=== PATIENT | male | born 1935 | race Caucasian/White ===

== ENCOUNTER 2018-04-16 09:13 | Day surgery (SDC) | payer OTHER, MEDICARE ==
--- NOTE | 2018-04-16 09:21 | RAD REPORT ---
EXAM DESCRIPTION: RAD - Chest Pa And Lat (2 Views) - 04/16/2018 9:06 am CLINICAL HISTORY: preop Chest pain. COMPARISON: Chest Single View dated 11/25/2016; Chest Single View dated 11/24/2016; Chest Single View dated 11/23/2016; Chest Single View dated 11/23/2016 FINDINGS: The lungs are clear. The heart is normal in size. No displaced fractures. IMPRESSION: No acute or concerning finding suspected.
[2018-04-16 09:22] LABS: BUN Blood Urea Nitrogen 17 mg/dL (7-18); Bicarbonate 32 mmol/L (21-32); Glucose Level 95 mg/dL (74-106); Potassium 4.5 mmol/L (3.5-5.1); Sodium Level 137 mmol/L (136-145)
[2018-04-16] MEDS ORDERED: CEFAZOLIN 1GM (PREMIX IV) 0 GM/0 ML BAG ONE (09:39)
[2018-04-16] MEDS ORDERED: NA CHLORIDE 0.9% 1,000 ML ONE (09:39)
[2018-04-16] MEDS: CEFAZOLIN 1GM (PREMIX IV) 1 GM/50 ML BAG ONE ×2 (10:20→11:18)
[2018-04-16] MEDS ORDERED: LIDOCAINE 2% MPF 5 ML VIAL ONE (10:54)
[2018-04-16] MEDS ORDERED: PROPOFOL 200 MG/20 ML VIAL IV ONE (10:54)
[2018-04-16] MEDS: LIDOCAINE 1% W/EPI 1:100,000 MDV 50 ML VIAL ONE ×2 (11:39→12:02)
[2018-04-16] MEDS ORDERED: CODEINE 30MG/APAP 300MG TAB ONE (13:54)
--- NOTE | 2018-04-16 14:00 | EKG ---
Test Date: 2018-04-16 Test Time: 08:54:30 Commodities Trader: ADELIA MEASUREMENT RESULTS: Intervals: Rate: 63 IL: 138 QRSD: 88 QT: 398 QTc: 407 Waves: P: 45 IL: 138 QRS: 63 T: 57 INTERPRETIVE STATEMENTS: Normal sinus rhythm Normal ECG Compared to ECG 11/23/2016 10:08:18 Sinus tachycardia no longer present Electronically Signed On 04-16-18 13:58:43 CORPORATE EXECUTIVE by Jonah Hawkins
[2018-04-16 14:43] VITALS: BP 128/58; TEMP 98; O2SAT 99
--- NOTE | 2018-04-17 00:46 | OP ---
Date of Procedure: 04/16/2018 Surgeon: Andrez Kramer MD Preoperative Diagnosis: Squamous cell carcinoma of right scalp. Postoperative Diagnosis: Squamous cell carcinoma of right scalp. Procedure: Wide excision of right scalp squamous cell carcinoma, 4 x 2 cm, with layered closure. Estimated Blood Loss: Minimal. Specimen: As above. Findings: Initially, the superior margin was positive; and therefore, re-excision was done and sent to Pathology as permanent section. Anesthesia: MAC. Complications: None. Disposition: The patient tolerated the procedure in stable condition and was taken to Recovery in go od general condition. Procedure In Detail: The patient was brought to the OR and placed in supine position. MAC anesthesi a was begun. The patient was prepped and draped in usual sterile fashion. Lidocaine 1% with epineph rine was infiltrated locally. Then, #15 blade was used to make a 4 x 2-cm incision to excise this re ddish biopsied area. Subcutaneous tissue was divided, and the entire specimen was excised and sent t o Pathology. The margins from the 10 o'clock to the 4 o'clock position were positive. Therefore, re -excision was done with approximately another 0.5 cm, and this was grossly negative tissue. This was labeled appropriately and sent to Pathology as permanent section. Wound was irrigated, and bleeding was controlled with cautery. Flaps were created. Then, 2-0 chromic was used to reapproximate subcu taneous tissue and 3-0 nylon used to reapproximate skin. Sterile dressing was applied. The patient was awakened and taken to Recovery in good general condition. Discharge Note: The patient will go to day surgery and home when stable. Disposition: Home. Condition: Stable. Discharge Instructions: Resume home medications and diet. Activity as tolerated. No heavy lifting. Remove outer dressing in 2 days. Shower. Keep wound clean and dry. Keep Neosporin on the wound d aily. Follow up in my office in 2 weeks. Call for appointment. Tylenol No. 3 one tablet p.o. q.4 h ours p.r.n. pain. /MODL Voice ID: [id number] Report ID: [id number]
== END 2018-04-16 14:52 | disposition home or self-care (01) ==
LOC: OR 09:13
PROVIDERS: ATTEND Surgery
PROC: 0HB0XZZ Excision of Scalp Skin, External Approach (ICD-10-PCS; principal; 2018-04-16 09:15)
DX: C44.42 Squamous cell carcinoma of skin of scalp and neck (principal); E11.9 Type 2 diabetes mellitus without complications; I10 Essential (primary) hypertension
CPT/HCPCS: 11626; 36415; 71046; 80048; 82962; 85025; 88305; 88331; 88332; 93005; J0690; J2704; J7030

== ENCOUNTER 2018-04-18 18:46 | Observation (INO) | payer OTHER, MEDICARE ==
[2018-04-18 19:42] LABS: Absolute Lymphocytes (CBC) 1.1 K/uL (0.7-4.9); Absolute Monocytes 1.3 K/uL (0.1-1.3); Absolute Neutrophil 9.4 K/uL (1.8-8.0); Basophils % 0.4 % (0-1.3); Eosinophils % 0.8 % (0-4.4); Lymphocytes % 8.8 % (15.3-44.8); MPV 8.7 fL (7.6-11.3); Monocytes % 11.1 % (3.3-12.3); RBC Red Blood Cell Count 3.54 M/uL (4.33-5.43)
[2018-04-18 20:00] LABS: ALT/SGPT 43 U/L (12-78); AST/SGOT 58 U/L (15-37); Albumin 3.5 g/dL (3.4-5.0); Alkaline Phosphatase 88 U/L (45-117); BUN Blood Urea Nitrogen 19 mg/dL (7-18); Bicarbonate 27 mmol/L (21-32); Bilirubin Total 0.3 mg/dL (0.2-1.0); Glucose Level 106 mg/dL (74-106); Potassium 4.1 mmol/L (3.5-5.1); Protein, Total 7.2 g/dL (6.4-8.2); Sodium Level 137 mmol/L (136-145)
--- NOTE | 2018-04-18 20:46 | RAD REPORT ---
EXAM DESCRIPTION: CT - Head C Spine Cap W Efe - 04/18/2018 8:26 pm CLINICAL HISTORY: Fall, head, neck, chest and abdomen pain COMPARISON: CT head November 2016, CT chest October 2016 TECHNIQUE: Axial [address] head images were obtained. Axial [address] cervical spine images were obtaine d with sagittal and coronal reconstruction images reviewed. During dynamic enhancement of 100mL non-i onic contrast, axial 5 mm images of the chest, abdomen and pelvis were obtained. All CT scans are performed using dose optimization technique as appropriate and may include automated exposure control or mA/KV adjustment according to patient size. FINDINGS: No intracranial hemorrhage, mass or edema. No midline shift or abnormal fluid collection. Mild to moderate atrophy and chronic ischemic changes are present similar to comparison. Ventricles a re normal for the amount of volume loss. Mastoid air cells are clear. Left maxillary sinus chronic di sease present. No skull fracture. CT cervical spine imaging shows normal height. Normal alignment of the vertebrae. C4-5 disc space theodora rowing. No paraspinal mass or hematoma seen. Central canal detail is inherently limited. Concerns for traumatic disc herniation or traumatic cord injury can be further addressed with MR imaging. CT chest shows no pneumothorax, pulmonary contusion or pleural fluid collection. No mediastinal hemat elmira and the aorta and pulmonary arteries are unremarkable. No chest will mass or abnormal axillary fi nding. No displaced rib fracture or other significant bony finding. No acute injury to the solid abdominal viscera. Gallbladder is well filled but not dilated. Olivera sheela ear slightly thickened and edematous. There is some mild congestion or edema in the pericholecystic f atty tissues extending towards the duodenum. Biliary tree is upper normal to minimally enlarged. Gall stones can be occult. No bowel injury or significant finding. No free air, free fluid or pneumatosis. No urinary bladder a bnormality. Disc and bony degenerative changes are present. No acute or destructive bone process seen. IMPRESSION: CT head shows atrophy and chronic ischemic change with no hemorrhage or acute intracrani al finding. Cervical spine degenerative change with no fracture or acute finding. Central canal detail is inheren tly limited. Scattered fibrotic change with no acute CT chest finding. Gallbladder olivera appear thickened and edematous and there is stranding in the adjacent fatty tissue. Bile duct is upper normal to minimally enlarged. This is not a typical trauma finding. Correlation i s needed with any clinical or laboratory findings for biliary obstruction or acute cholecystitis. No traumatic injury seen to the abdomen or pelvis.
[2018-04-18] MEDS ORDERED: ACETAMINOPHEN 500 MG TAB PO PRN (21:24)
[2018-04-18] MEDS ORDERED: HYDROMORPHONE HCL 1 MG/ML INJ IV PRN (21:24)
[2018-04-18] MEDS ORDERED: ONDANSETRON 4 MG/2 ML VIAL IV PRN (21:24)
--- NOTE | 2018-04-18 21:25 | ER ---
Nurse's Notes [facility] Name: Mango Giron Age: 82 yrs Sex: Male : 1935 Arrival Date: 04/18/2018 Time: 18:49 Bed 15 Private MD: Joanne Rush F Diagnosis: fall;cholecystitis Presentation: 04/18 19:05 Presenting complaint: Child states: Fell while getting out of bed hitting right side of head on night stand. Denies LOC. Family reports generalized weakness and general confusion with malaise. Procedure done Thursday to remove skin cancer from right side of head. Care prior to arrival: None. Mechanism of Injury: Fall from standing position. Trauma event details: Injury occurred in the [facility], Injury occurred: at home. Injury occurred: April 17, 2018. 19:05 Acuity: BARRON 3 aj 19:05 Method Of Arrival: Wheelchair 19:10 Transition of care: patient was not received from another setting of care. Onset of cc3 symptoms was April 17, 2018. Risk Assessment: Do you want to hurt yourself or someone else? Patient reports no desire to harm self or others. Initial Sepsis Screen: Does the patient meet any 2 criteria? No. Patient's initial sepsis screen is negative. Does the patient have a suspected source of infection? No. Patient's initial sepsis screen is negative. Trauma Activation: Not Applicable Physician: ED Physician; Name: ; Notified At: ; Arrived At: Physician: General Surgeon; Name: ; Notified At: ; Arrived At: Physician: Radiology; Name: ; Notified At: ; Arrived At: Physician: Respiratory; Name: ; Notified At: ; Arrived At: Physician: Lab; Name: ; Notified At: ; Arrived At: Historical: - Allergies: 19:10 Codeine; aj - Home Meds: 19:15 gabapentin 600 mg oral tab [Active]; Phenytoin Oral [Active]; metformin 1,000 mg Oral cc3 TG24 1 tab 2 times per day [Active]; atorvastatin oral oral [Active]; tamsulosin 0.4 mg oral cp24 1 cap once daily [Active]; aspirin 81 mg Oral chew 1 tab once daily [Active]; multivitamin oral cap [Active]; lisinopril 5 mg Oral tab [Active]; Elizabeth Oral [Active]; fluticasone [Active]; - PMHx: 19:10 Diabetes - NIDDM; enlarged prostate; Hypertension; Polio; Seizures; aj - PSHx: 19:10 Appendectomy; aj - Immunization history: Last tetanus immunization: unknown. - Social history:: Smoking status: Patient/guardian denies using tobacco. - Ebola Screening: : Patient negative for fever greater than or equal to 101.5 degrees Fahrenheit, and additional compatible Ebola Virus Disease symptoms Patient denies exposure to infectious person Patient denies travel to an Ebola-affected area in the 21 days before illness onset No symptoms or risks identified at this time. Screenin:10 Abuse screen: Denies threats or abuse. Denies injuries from another. Nutritional cc3 screening: No deficits noted. Tuberculosis screening: No symptoms or risk factors identified. Fall Risk Ambulatory Aid- None/Bed Rest/Nurse Assist (0 pts). Gait- Normal/Bed Rest/Wheelchair (0 pts) Mental Status- Oriented to own ability (0 pts). Primary Survey: 19:05 NO uncontrolled hemorrhage observed. Breathing/Chest: Respiratory pattern: regular, aj Respiratory effort: spontaneous, unlabored. Circulation: Skin color: pink. Disability Alert. 19:10 Exposure/Environment: There is no evidence of uncontrolled external bleeding. cc3 Reassessment Airway Airway Patent Breathing/Chest Respiratory pattern Regular Respiratory effort Spontaneous Unlabored Breath sounds Clear Chest inspection Symmetrical Circulation Temperature Warm Dry Disability Alert. Secondary Survey: 19:10 HEENT: Face No injury/deformity Eyes: No injury or deformity noted. to bilateral eyes. cc3 Ears: clear bilaterally. Nose: clear to bilateral nares. Throat: No injury or deformity noted. is clear with gag reflex present. Gastrointestinal: Abdomen is soft, flat. : No signs and/or symptoms were reported regarding the genitourinary system. Musculoskeletal: Circulation, motion, and sensation intact. Range of motion: intact in all extremities. Assessment: 19:05 General: Appears in no apparent distress. comfortable, Behavior is calm, cooperative, aj appropriate for age. Pain: Denies pain. Neuro: Level of Consciousness is awake, alert, obeys commands, Oriented to person, place, time, situation, Appropriate for age. Respiratory: Airway is patent Respiratory effort is even, unlabored, Respiratory pattern is regular, symmetrical. Derm: Skin is intact, is healthy with good turgor, Skin is pink, warm \T\ dry. normal, Wound noted right frontal area. 20:30 Reassessment: Patient appears in no apparent distress at this time. Patient and/or cc3 family updated on plan of care and expected duration. Pain level reassessed. Patient is alert, oriented x 3, equal unlabored respirations, skin warm/dry/pink. Patient came back from CT scan department. 21:18 Reassessment: Patient appears in no apparent distress at this time. Patient and/or cc3 family updated on plan of care and expected duration. Pain level reassessed. Patient is alert, oriented x 3, equal unlabored respirations, skin warm/dry/pink. 22:25 Reassessment: Patient appears in no apparent distress at this time. Patient and/or cc3 family updated on plan of care and expected duration. Pain level reassessed. Patient is alert, oriented x 3, equal unlabored respirations, skin warm/dry/pink. 23:00 Reassessment: Patient appears in no apparent distress at this time. Patient and/or cc3 family updated on plan of care and expected duration. Pain level reassessed. Patient is alert, oriented x 3, equal unlabored respirations, skin warm/dry/pink. Patient for admission, room available in , report handed over to FIDEL Phillips for continuity of care. 23:30 Reassessment: Patient appears in no apparent distress at this time. Patient and/or cc3 family updated on plan of care and expected duration. Pain level reassessed. Patient is alert, oriented x 3, equal unlabored respirations, skin warm/dry/pink. Patient left ER for admission vitally stable by stretcher escorted by CLAUDETTE Rodriguez with the family. Vital Signs: 19:05 BP 119 / 74; Pulse 91; Resp 20; Temp 99.9(O); Pulse Ox 97% on R/A; Weight 77.11 kg; aj Height 5 ft. 10 in. (177.80 cm); 20:30 BP 118 / 54; Pulse 81; Resp 18 S; Pulse Ox 98% on R/A; cc3 21:12 BP 112 / 57; Pulse 82; Resp 17 S; Pulse Ox 98% on R/A; cc3 22:34 BP 111 / 55; Pulse 81; Resp 18 S; Pulse Ox 99% on R/A; cc3 23:10 BP 104 / 54; Pulse 77; Resp 18 S; Pulse Ox 98% on R/A; cc3 19:05 Body Mass Index 24.39 (77.11 kg, 177.80 cm) aj Shanks Coma Score: 19:05 Eye Response: spontaneous(4). Verbal Response: oriented(5). Motor Response: obeys aj commands(6). Total: 15. Trauma Score (Adult): 19:05 Eye Response: spontaneous(1); Verbal Response: oriented(1); Motor Response: obeys aj commands(2); Systolic BP: > 89 mm Hg(4); Respiratory Rate: 10 to 29 per min(4); Shanks Score: 15; Trauma Score: 12 ED Course: 18:49 Patient arrived in ED. mr 18:50 Joanne Rush MD is Private Physician. mr 19:07 Triage completed. aj 19:10 Glo Jean is Primary Nurse. cc3 19:10 Arm band placed on right wrist. Patient placed in an exam room. aj 19:10 Patient has correct armband on for positive identification. Bed in low position. Call cc3 light in reach. Side rails up X 1. software validation engineer on. Pulse ox on. NIBP on. 19:10 Patient maintains SpO2 saturation greater than 95% on room air. cc3 19:10 Thermoregulation: warm blanket given to patient. cc3 19:13 Eusebio Rodriguez MD is Attending Physician. ps1 19:25 Inserted saline lock: 20 gauge in right antecubital area, using aseptic technique. cc3 Blood collected. 21:23 Tena Weir MD is Hospitalizing Provider. ps1 23:00 No provider procedures requiring assistance completed. Patient admitted, IV remains in cc3 place. Administered Medications: 22:10 Drug: Zosyn 3.375 grams Route: IVPB; Infused Over: 60 mins; Site: right antecubital; cc3 23:20 Follow up: Response: No adverse reaction; IV Status: Completed infusion; IV Intake: cc3 100ml Intake: 23:15 IV: 100ml; Total: 100ml. cc3 23:20 IV: 100ml; Total: 200ml. cc3 Outcome: 21:24 Decision to Hospitalize by Provider. ps1 23:00 Admitted to Med/surg accompanied by tech, family with patient, via stretcher, room 202, cc3 with chart, Report called to FIDEL Phillips 23:00 Condition: stable 23:00 Instructed on the need for admit, Demonstrated understanding of instructions. 23:00 Patient's length of stay in the Emergency Department was greater than 2 hours. patient cc3 admittedPatient's length of stay extended due to 23:33 Patient left the ED. cc3 Signatures: Geovanna Matthew RN RN aj Rivera, Mary mr Singer, Phillip, MD MD ps1 Cordel, Charlene cc3
--- NOTE | 2018-04-18 21:25 | EDPHYS ---
Physician Documentation [facility] Name: Mango Giron Age: 82 yrs Sex: Male : 1935 Arrival Date: 04/18/2018 Time: 18:49 Bed 15 Private MD: Joanne Rush F ED Physician Eusebio Rodriguez HPI: 04/18 20:11 This 82 yrs old Male presents to ER via Wheelchair with complaints of Fall ps1 Injury, Weakness, Confusion. 20:11 patient had recent surgical procedure for skin cancer on head. He was discharged with ps1 T3 and has had multiple falls since the event. Family states that they witnessed him fall twice and he hit his head in the area of the surgical site and concerned for injury. They state that he has been confused and non-sensical in some of his conversations as well as hypersomnolence. He denies cough or urinary complaints. No active bleeding from injury. Small hematoma with dried blood. . Historical: - Allergies: 19:10 Codeine; aj - Home Meds: 19:15 gabapentin 600 mg oral tab [Active]; Phenytoin Oral [Active]; metformin 1,000 mg Oral cc3 TG24 1 tab 2 times per day [Active]; atorvastatin oral oral [Active]; tamsulosin 0.4 mg oral cp24 1 cap once daily [Active]; aspirin 81 mg Oral chew 1 tab once daily [Active]; multivitamin oral cap [Active]; lisinopril 5 mg Oral tab [Active]; Elizabeth Oral [Active]; fluticasone [Active]; - PMHx: 19:10 Diabetes - NIDDM; enlarged prostate; Hypertension; Polio; Seizures; aj - PSHx: 19:10 Appendectomy; aj - Immunization history: Last tetanus immunization: unknown. - Social history:: Smoking status: Patient/guardian denies using tobacco. - Ebola Screening: : Patient negative for fever greater than or equal to 101.5 degrees Fahrenheit, and additional compatible Ebola Virus Disease symptoms Patient denies exposure to infectious person Patient denies travel to an Ebola-affected area in the 21 days before illness onset No symptoms or risks identified at this time. ROS: 20:11 Eyes: Negative for injury, pain, redness, and discharge, ENT: Negative for injury, ps1 pain, and discharge, Cardiovascular: Negative for chest pain, palpitations, and edema, Respiratory: Negative for shortness of breath, cough, wheezing, and pleuritic chest pain, Abdomen/GI: Negative for abdominal pain, nausea, vomiting, diarrhea, and constipation, Back: Negative for injury and pain, MS/Extremity: Negative for injury and deformity. 20:11 Constitutional: Positive for fatigue, poor PO intake. 20:11 Skin: Positive for hematoma, of the right frontal area. 20:11 Neuro: Positive for altered mental status. Exam: 20:11 Constitutional: This is a well developed, well nourished patient who is awake, alert, ps1 and in no acute distress. Eyes: Pupils equal round and reactive to light, extra-ocular motions intact. Lids and lashes normal. Conjunctiva and sclera are non-icteric and not injected. Chest/axilla: Normal chest wall appearance and motion. Nontender with no deformity. No lesions are appreciated. Cardiovascular: Regular rate and rhythm. No gallops, murmurs, or rubs. Normal PMI, no JVD. No pulse deficits. Respiratory: Lungs have equal breath sounds bilaterally, clear to auscultation and percussion. No rales, rhonchi or wheezes noted. No increased work of breathing, no retractions or nasal flaring. Abdomen/GI: Soft, non-tender, with normal bowel sounds. No distension or tympany. No guarding or rebound. No evidence of tenderness throughout. MS/ Extremity: Pulses equal, no cyanosis. Neurovascular intact. Full, normal range of motion. Neuro: Awake and alert, GCS 15, oriented to person, place, time, and situation. Cranial nerves II-XII grossly intact. Sensory grossly intact. Psych: Awake, alert, with orientation to person, place and time. Behavior, mood, and affect are within normal limits. 20:11 Head/face: Noted is no obvious of injury or deformity except contusion, a laceration(s), that is superficial, swelling, of the right frontal area. Vital Signs: 19:05 BP 119 / 74; Pulse 91; Resp 20; Temp 99.9(O); Pulse Ox 97% on R/A; Weight 77.11 kg; aj Height 5 ft. 10 in. (177.80 cm); 20:30 BP 118 / 54; Pulse 81; Resp 18 S; Pulse Ox 98% on R/A; cc3 21:12 BP 112 / 57; Pulse 82; Resp 17 S; Pulse Ox 98% on R/A; cc3 22:34 BP 111 / 55; Pulse 81; Resp 18 S; Pulse Ox 99% on R/A; cc3 23:10 BP 104 / 54; Pulse 77; Resp 18 S; Pulse Ox 98% on R/A; cc3 19:05 Body Mass Index 24.39 (77.11 kg, 177.80 cm) aj [place] Coma Score: 19:05 Eye Response: spontaneous(4). Verbal Response: oriented(5). Motor Response: obeys aj commands(6). Total: 15. Trauma Score (Adult): 19:05 Eye Response: spontaneous(1); Verbal Response: oriented(1); Motor Response: obeys aj commands(2); Systolic BP: > 89 mm Hg(4); Respiratory Rate: 10 to 29 per min(4); Albin Score: 15; Trauma Score: 12 MDM: 19:45 Patient medically screened. ps1 20:11 Data reviewed: vital signs, nurses notes. ps1 04/18 19:15 Order name: CBC with Diff ps1 04/18 19:15 Order name: Type And Screen ps1 04/18 19:15 Order name: CMP ps1 04/18 19:51 Order name: CBC with Automated Diff; Complete Time: 19:55 EDMS 04/18 20:00 Order name: Comprehensive Metabolic Panel; Complete Time: 20:26 EDMS 04/18 20:30 Order name: Type and Screen; Complete Time: 22:44 EDMS 04/18 19:15 Order name: CT Traumagram (Head C Spine CAP W Con) ps1 04/18 19:15 Order name: Labs collected and sent; Complete Time: 19:36 ps1 04/18 20:46 Order name: ABO/RH no charge; Complete Time: 20:53 EDMS 04/18 20:47 Order name: CT; Complete Time: 20:53 EDMS 04/18 21:24 Order name: Urine Dipstick-Ancillary (obtain specimen); Complete Time: 23:33 ps1 Administered Medications: 22:10 Drug: Zosyn 3.375 grams Route: IVPB; Infused Over: 60 mins; Site: right antecubital; cc3 23:20 Follow up: Response: No adverse reaction; IV Status: Completed infusion; IV Intake: cc3 100ml Disposition: 04/18/18 21:24 Hospitalization ordered by Tena Weir for Inpatient Admission. Preliminary diagnosis are cholecystitis, fall. - Bed requested for Telemetry/MedSurg (Inpatient). - Status is Inpatient Admission. cc3 - Condition is Stable. - Problem is new. - Symptoms have improved. UTI on Admission? No Signatures: Dispatcher [employer] EDMS Siria Tolbert RN RN mw Myers, Amanda, RN RN aj Singer, Phillip, MD MD ps1 Simonjinny Glo cc3 Christopher Mara Corrections: (The following items were deleted from the chart) 22:03 21:24 Hospitalization Ordered by Tena Weir MD for Inpatient Admission. Preliminary diagnosis is cholecystitisfall. Bed requested for Telemetry/MedSurg (Inpatient). Status is Inpatient Admission. Condition is Stable. Problem is new. Symptoms have improved. UTI on Admission? No. ps1 22:10 22:03 04/18/2018 21:24 Hospitalization Ordered by Tena Weir MD for Inpatient Admission. Preliminary diagnosis is cholecystitisfall. Bed requested for Telemetry/MedSurg (Inpatient). Status is Inpatient Admission. Condition is Stable. Problem is new. Symptoms have improved. UTI on Admission? No. mw 23:33 22:10 04/18/2018 21:24 Hospitalization Ordered by Tena Weir MD for Inpatient cc3 Admission. Preliminary diagnosis is cholecystitisfall. Bed requested for Telemetry/MedSurg (Inpatient). Status is Inpatient Admission. Condition is Stable. Problem is new. Symptoms have improved. UTI on Admission? No. gm
[2018-04-18] MEDS ORDERED: PIPER/TAZO/NS 3.375gm 3.375 GM/100 ML BAG ONE (22:15)
[2018-04-18] MEDS: NA CHLORIDE 0.9% 1,000 ML IV SCH (23:54)
[2018-04-19 00:45] VITALS: BMI 24.7
[2018-04-19 01:10] VITALS: O2SAT 97
[2018-04-19 02:34] LABS: Urine Appearance CLEAR; Urine Bilirubin NEGATIVE (NEG); Urine Blood NEGATIVE (NEG); Urine Color YELLOW; Urine Glucose NEGATIVE (NEG); Urine Protein TRACE (NEG); Urine Specific Gravity >=1.030 (1.005-1.030); Urine Urobilinogen 0.2 mg/dL (0.2-1.0)
[2018-04-19 03:43] LABS: Urine Microscopic Reflex ORDER UMIC
[2018-04-19 03:57] LABS: Urine Bacteria <20 /HPF (NONE SEEN); Urine Culture Reflex Order NOT NEEDED; Urine RBC NONE SEEN /HPF (NONE SEEN)
[2018-04-19 06:33] LABS: Absolute Lymphocytes (CBC) 1.1 K/uL (0.7-4.9); Absolute Neutrophil 7.1 K/uL (1.8-8.0); Basophils % 0.5 % (0-1.3); Eosinophils % 1.9 % (0-4.4); Hematocrit 31.5 % (39.6-49.0); Lymphocytes % 11.3 % (15.3-44.8); Monocytes % 10.6 % (3.3-12.3); RBC Red Blood Cell Count 3.28 M/uL (4.33-5.43)
[2018-04-19 06:37] LABS: ALT/SGPT 37 U/L (12-78); AST/SGOT 45 U/L (15-37); Albumin 2.9 g/dL (3.4-5.0); Alkaline Phosphatase 73 U/L (45-117); BUN Blood Urea Nitrogen 14 mg/dL (7-18); Bicarbonate 27 mmol/L (21-32); Bilirubin Total 0.4 mg/dL (0.2-1.0); Glucose Level 108 mg/dL (74-106); Magnesium 2.2 mg/dL (1.8-2.4); Phosphorus 2.1 mg/dL (2.5-4.9); Potassium 3.7 mmol/L (3.5-5.1); Protein, Total 6.3 g/dL (6.4-8.2); Sodium Level 137 mmol/L (136-145)
--- NOTE | 2018-04-19 06:48 | P.HP ---
Certification for Inpatient Patient admitted to: Inpatient With expected LOS: >2 Midnights Patient will require the following post-hospital care: None Practitioner: I am a practitioner with admitting privileges, knowledge of patient current condition, hospital course, and medical plan of care. Services: Services provided to patient in accordance with Admission requirements found in Title 42 Section 412.3 of the Code of Federal Regulations Patient History Date of Service: 04/18/18 Reason for admission: Status post fall; possible cholecystitis History of Present Illness: Patient is an 82-year-old gentleman who fell at home. He apparently hit his head after falling and he suffered a head laceration. He came into the emergency room for further evaluation. He had a CT traumagram performed which revealed possible acute cholecystitis. Patient was admitted to the hospital for further observation. Patient also has history of diabetes and seizure disorder. These a been fairly well controlled. He will be admitted and will monitor him closely. Will keep him NPO and await for general surgery evaluation. Patient does not have any significant cardiac issues. Will monitor him on telemetry. Allergies codeine Adverse Reaction (Verified 04/19/18 00:04) Nausea/Vomiting - Past Medical/Surgical History Has patient received pneumonia vaccine in the past: Yes Diabetic: Yes -: Diabetes mellitus type 2 -: BPH -: Cataracts/glaucoma -: History of polio -: Seizure disorder -: Cataracts/glaucoma -: Appendectomy -: Right foot surgery -: Sinus surgery Psychosocial/ Personal History: The patient is of 55 years. He has 3 children. - Family History Mother Medical History: Cancer - Social History Smoking Status: Never smoker Alcohol use: No CD- Drugs: No Caffeine use: Yes Place of Residence: Home Review of Systems 10-point ROS is otherwise unremarkable Physical Examination - Vital Signs Temperature: 98.4 F Blood Pressure: 114/58 Pulse: 89 Respirations: 20 Pulse Ox (%): 95 - Physical Exam General: Alert, In no apparent distress, Oriented x3 HEENT: PERRLA, Mucous membr. moist/pink, Other (Patient with head laceration with dried blood at the scalp), EOMI, Sclerae nonicteric Neck: Supple, 2+ carotid pulse no bruit, No LAD, Without JVD or thyroid abnormality Respiratory: Clear to auscultation bilaterally, Normal air movement Cardiovascular: Regular rate/rhythm, Normal S1 S2, No murmurs Gastrointestinal: Normal bowel sounds, Soft and benign, Non-distended, Tenderness (Minimal right upper quadrant) Musculoskeletal: No clubbing, No swelling, No tenderness Integumentary: No rashes Neurological: Normal gait, Normal speech, Normal strength at 5/5 x4 extr, Normal tone, Normal affect Lymphatics: No axilla or inguinal lymphadenopathy - Studies Laboratory Data (last 24 hrs) 04/18/18 19:25: Sodium 137, Potassium 4.1, BUN 19 H, Creatinine 0.70, Glucose 106, Total Bilirubin 0.3, AST 58 H, ALT 43, Alkaline Phosphatase 88 04/18/18 19:25: WBC 11.9 H D, Hgb 11.2 L, Hct 34.0 L, Plt Count 166 Assessment & Plan - Problems (Diagnosis) (1) Syncope and collapse Onset Date: 06/18/15 Current Visit: No Status: Acute (2) Diabetes mellitus Onset Date: 11/24/16 Current Visit: No Status: Chronic Qualifiers: (3) Hypertension Onset Date: 11/24/16 Current Visit: No Status: Chronic Qualifiers: (4) Seizure disorder Onset Date: 11/24/16 Current Visit: No Status: Chronic - Plan 1. Continue with IV hydration 2. Continue with IV antibiotics 3. Continue with pain control 4. NPO 5. General surgery consultation; 6. We will monitor CBC, BMP, LFTs and lipase along with electrolytes. 7. Continue anti epileptics 8. GI and DVT prophylaxis Discharge Plan: Home Plan to discharge in: Greater than 2 days - Advance Directives Does patient have a Living Will: Yes Does patient have a Durable POA for Healthcare: Yes - Code Status/Comfort Care Code Status Assessed: Yes Code Status: Full Code Critical Care: No Time Spent Managing PTS Care (In Minutes): 50
[2018-04-19] MEDS ORDERED: Levofloxacin500mg IV 500 MG/100 ML BAG IV SCH (07:00)
[2018-04-19] MEDS ORDERED: POTASSIUM PHOS IN 0.9 % NACL 15 MMOL/250 ML BAG IV ONE (09:00)
[2018-04-19] MEDS: METRONIDAZOLE 500mg IVPB 500 MG/100 ML BAG IV SCH ×2 (09:26→16:21)
--- NOTE | 2018-04-19 09:29 | RAD REPORT ---
EXAM DESCRIPTION: US - Abdomen Exam Complete - 04/19/2018 8:15 am CLINICAL HISTORY: Abdominal pain COMPARISON: April 18, 2018 cat scan FINDINGS: The liver has a normal echotexture. The gallbladder wall is thickened measuring 8 millimeters. A small to moderate amount of sludge is pr esent. A gallstone is not clearly seen. The common bile duct is borderline dilated. The pancreas is normal in size and echotexture The right kidney measures 11 centimeters with a normal echotexture. The left kidney measures 11 centimeters with a normal echotexture. The spleen measures 8 centimeters. The abdominal aorta and inferior vena cava appear unremarkable IMPRESSION: Thickened gallbladder wall with a small to moderate amount of sludge. This may indicate cholecystitis
[2018-04-19] MEDS: NA CHLORIDE 0.9% 1,000 ML IV SCH (12:03)
--- NOTE | 2018-04-19 13:27 | P.DS ---
Admission Date: 04/18/18 Discharge Date: 04/19/18 Primary Care Provider: Dr. Ziegler(I am covering for him) Disposition: DC HOME/HOME HEALTH CARE Discharge Condition: GOOD Reason for Admission: Status post fall; possible cholecystitis Consultations: Surgery-Dr. Hanks Procedures: CT Scan: COMPARISON: CT head November 2016, CT chest October 2016 TECHNIQUE: Axial [address] head images were obtained. Axial [address] cervical spine images were obtained with sagittal and coronal reconstruction images reviewed. During dynamic enhancement of 100mL non-ionic contrast, axial 5 mm images of the chest, abdomen and pelvis were obtained. All CT scans are performed using dose optimization technique as appropriate and may include automated exposure control or mA/KV adjustment according to patient size. FINDINGS: No intracranial hemorrhage, mass or edema. No midline shift or abnormal fluid collection. Mild to moderate atrophy and chronic ischemic changes are present similar to comparison. Ventricles are normal for the amount of volume loss. Mastoid air cells are clear. Left maxillary sinus chronic disease present. No skull fracture. CT cervical spine imaging shows normal height. Normal alignment of the vertebrae. C4-5 disc space narrowing. No paraspinal mass or hematoma seen. Central canal detail is inherently limited. Concerns for traumatic disc herniation or traumatic cord injury can be further addressed with MR imaging. CT chest shows no pneumothorax, pulmonary contusion or pleural fluid collection. No mediastinal hematoma and the aorta and pulmonary arteries are unremarkable. No chest will mass or abnormal axillary finding. No displaced rib fracture or other significant bony finding. No acute injury to the solid abdominal viscera. Gallbladder is well filled but not dilated. Olivera appear slightly thickened and edematous. There is some mild congestion or edema in the pericholecystic fatty tissues extending towards the duodenum. Biliary tree is upper normal to minimally enlarged. Gallstones can be occult. No bowel injury or significant finding. No free air, free fluid or pneumatosis. No urinary bladder abnormality. Disc and bony degenerative changes are present. No acute or destructive bone process seen. IMPRESSION: CT head shows atrophy and chronic ischemic change with no hemorrhage or acute intracranial finding. Cervical spine degenerative change with no fracture or acute finding. Central canal detail is inherently limited. Scattered fibrotic change with no acute CT chest finding. Gallbladder olivera appear thickened and edematous and there is stranding in the adjacent fatty tissue. Bile duct is upper normal to minimally enlarged. This is not a typical trauma finding. Correlation is needed with any clinical or laboratory findings for biliary obstruction or acute cholecystitis. No traumatic injury seen to the abdomen or pelvis. ABUS: COMPARISON: April 18, 2018 cat scan FINDINGS: The liver has a normal echotexture. The gallbladder wall is thickened measuring 8 millimeters. A small to moderate amount of sludge is present. A gallstone is not clearly seen. The common bile duct is borderline dilated. The pancreas is normal in size and echotexture The right kidney measures 11 centimeters with a normal echotexture. The left kidney measures 11 centimeters with a normal echotexture. The spleen measures 8 centimeters. The abdominal aorta and inferior vena cava appear unremarkable IMPRESSION: Thickened gallbladder wall with a small to moderate amount of sludge. This may indicate cholecystitis Medical Problem List: Accidental fall leading to laceration to right forehead region Asymptomatic cholecystitis Diabetes mellitus type 2 Seizure disorder Hypertension Hyperlipidemia BPH Chronic sinusitis Brief History of Present Illness: 82-year-old male presented to the emergency room after a fall. Patient denied any syncope, chest pain or shortness of breath. Patient accidentally fell. He suffered a laceration which was repaired in the emergency room. Patient was admitted for observation. CT scan revealed possible cholecystitis. Patient without nausea, vomiting or abdominal pain. Hospital Course: Patient presented with a fall. This was all accidental as he was trying to get out of the bathroom. He denied any syncope, chest pain or shortness of breath. Patient suffered a laceration to his forehead. This was repaired in the ER. Patient was observed. CT scan revealed possible cholecystitis. Patient denied any nausea, vomiting or abdominal pain. Abdominal ultrasound showed possible mild cholecystitis with sludge noted. Case discussed with his surgeon-Dr. Kramer. No need for surgical intervention at this time. At discharge he will continue with Cipro 500 mg 1 pill twice daily and Flagyl 500 mg 3 times a day for 7 days. Patient will need a follow up with surgery within 1 week to follow up this hospitalization and consider outpatient surgery. For his fall physical therapy ambulated patient. Patient normally uses walker. Patient also has home health and caregiver. Coverage fall precautions addressed in detail. Home health and physical therapy will be arranged. Family plans to have the caregiver available. Recommend to follow up with his PCP-Dr. Ziegler within 1 week to follow up this hospitalization. Patient has diabetes mellitus type 2. This remained stable. Patient will continue with metformin a 1000 mg 1 pill twice daily. Recommend to maintain blood sugars less than 140 fasting and less than 200 after meals. Further adjustment can be done by his PCP. Patient has hypertension. This remained stable. Patient will continue with lisinopril 5 mg 1 pill once daily. Recommend to maintain blood pressures less 150/80. Further adjustment can be done by his PCP. Patient has hyperlipidemia. Patient will continue with pravastatin 40 mg daily. Patient has seizure disorder. No seizures noted. At discharge he will continue with Phenytoin 100 mg 3 times a day and gabapentin sitter mg 3 times a day. Patient will follow up with neurology as directed. Patient has BPH. Patient will continue with Flomax 0.4 mg daily. Vital Signs/Physical Exam: Temp Pulse Resp BP Pulse Ox 98.1 F 77 18 114/56 L 97 04/19/18 08:00 04/19/18 08:00 04/19/18 08:00 04/19/18 08:00 04/19/18 08:00 General: Alert, In no apparent distress, Oriented x3, Cooperative HEENT: Other (Laceration to the right forehead region, status post repair) Neck: Supple Respiratory: Clear to auscultation bilaterally, Normal air movement Cardiovascular: Normal pulses, Regular rate/rhythm Gastrointestinal: Normal bowel sounds, Soft and benign, Non-distended, No tenderness, No masses, No rebound, No guarding Musculoskeletal: No erythema, No tenderness, No warmth Integumentary: No tenderness/swelling, No erythema, No warmth, No cyanosis Neurological: Normal speech, Normal strength at 5/5 x4 extr, Normal tone, Normal affect Laboratory Data at Discharge: WBC 9.4 K/uL (4.3-10.9) D 04/19/18 05:54 Hgb 10.6 g/dL (13.6-17.9) L 04/19/18 05:54 Hct 31.5 % (39.6-49.0) L 04/19/18 05:54 Plt Count 157 K/uL (152-406) 04/19/18 05:54 Sodium 137 mmol/L (136-145) 04/19/18 05:54 Potassium 3.7 mmol/L (3.5-5.1) 04/19/18 05:54 BUN 14 mg/dL (7-18) 04/19/18 05:54 Creatinine 0.55 mg/dL (0.55-1.3) 04/19/18 05:54 Glucose 108 mg/dL (74-106) H 04/19/18 05:54 Phosphorus 2.1 mg/dL (2.5-4.9) L 04/19/18 05:54 Magnesium 2.2 mg/dL (1.8-2.4) 04/19/18 05:54 Total Bilirubin 0.4 mg/dL (0.2-1.0) 04/19/18 05:54 AST 45 U/L (15-37) H 04/19/18 05:54 ALT 37 U/L (12-78) 04/19/18 05:54 Alkaline Phosphatase 73 U/L (45-117) 04/19/18 05:54 Home Medications: Aspirin [Adult Aspirin] 81 mg PO DAILY 04/19/18 Calcium Carbonate [Calcium] 500 mg PO DAILY 04/19/18 Ciprofloxacin HCl [Cipro 500 MG Tablet] 500 mg PO BID #14 tab 04/19/18 Fexofenadine HCl [Elizabeth Allergy] 60 mg PO DAILY 04/19/18 Fluticasone Propionate [Flonase Allergy Relief] 9.9 ml NS TID 04/19/18 Gabapentin 600 mg PO TID 04/19/18 Lisinopril [Prinivil*] 5 mg PO DAILY 04/19/18 Metformin HCl 1,000 mg PO BID 6AM 6PM 04/19/18 Multivitamin [Multivitamins] 1 each PO DAILY 04/19/18 Phenytoin Sodium Extended 100 mg PO TID 04/19/18 Pravastatin Sodium 40 mg PO DAILY 04/19/18 Tamsulosin HCl [Flomax] 0.4 mg PO DAILY 04/19/18 metroNIDAZOLE [Flagyl] 500 mg PO Q8H #21 tablet 04/19/18 New Medications: Ciprofloxacin HCl [Cipro 500 MG Tablet] 500 mg PO BID #14 tab metroNIDAZOLE [Flagyl] 500 mg PO Q8H #21 tablet Patient Discharge Instructions: 1. Patient will need to follow up his PCP in 1 week to follow up this hospitalization. 2. Patient presented with a fall. This was all accidental as he was trying to get out of the bathroom. He denied any syncope, chest pain or shortness of breath. Patient suffered a laceration to his forehead. This was repaired in the ER. Patient was observed. CT scan revealed possible cholecystitis. Patient denied any nausea, vomiting or abdominal pain. Abdominal ultrasound showed possible mild cholecystitis with sludge noted. Case discussed with his surgeon-Dr. Kramer. No need for surgical intervention at this time. At discharge he will continue with Cipro 500 mg 1 pill twice daily and Flagyl 500 mg 3 times a day for 7 days. Patient will need a follow up with surgery within 1 week to follow up this hospitalization and consider outpatient surgery. 3. For his fall, physical therapy ambulated patient. Patient normally uses walker. Patient also has home health and caregiver. Coverage fall precautions addressed in detail. Home health and physical therapy will be arranged. Family plans to have the caregiver available. Recommend to follow up with his PCP-Dr. Ziegler within 1 week to follow up this hospitalization. 4. Patient has diabetes mellitus type 2. This remained stable. Patient will continue with metformin a 1000 mg 1 pill twice daily. Recommend to maintain blood sugars less than 140 fasting and less than 200 after meals. Further adjustment can be done by his PCP. 5. Patient has hypertension. This remained stable. Patient will continue with lisinopril 5 mg 1 pill once daily. Recommend to maintain blood pressures less 150/80. Further adjustment can be done by his PCP. 6. Patient has hyperlipidemia. Patient will continue with pravastatin 40 mg daily. 7. Patient has seizure disorder. No seizures noted. At discharge he will continue with Phenytoin 100 mg 3 times a day and gabapentin sitter mg 3 times a day. Patient will follow up with neurology as directed. 8. Patient has BPH. Patient will continue with Flomax 0.4 mg daily. Diet: ADA Activity: Fall precautions Time spent managing pt's care (in minutes): 55
[2018-04-19] MEDS ORDERED: TRAMADOL HCL 50 MG TAB PO PRN (13:40)
[2018-04-19] MEDS ORDERED: IBUPROFEN 400 MG TAB PO PRN (13:40)
[2018-04-19] MEDS ORDERED: GABAPENTIN 300 MG CAP PO SCH (14:00)
[2018-04-19] MEDS ORDERED: [UNRECOGNIZED DRUG - REMARK] NS SCH (14:00)
[2018-04-19] MEDS ORDERED: PHENYTOIN ER 100 MG CAP PO SCH (14:00)
[2018-04-19] MEDS ORDERED: HOME MED 1 EA UNK (Gabapentin [Gabapentin] 600 MG) PO SCH (14:00)
[2018-04-19] MEDS ORDERED: ENOXAPARIN 30 MG/0.3 ML SQ SCH (17:00)
[2018-04-19] MEDS ORDERED: METFORMIN HCL 500 MG TAB PO SCH (17:00)
[2018-04-19] MEDS ORDERED: HOME MED 1 EA UNK (Metformin Hcl [Metformin Hcl] 1,000 MG) PO SCH (18:00)
[2018-04-19 18:27] VITALS: BP 106/55; TEMP 99.6
[2018-04-19] MEDS ORDERED: ATORVASTATIN 10 MG TAB PO SCH (21:00)
[2018-04-20] MEDS ORDERED: MULTIVITAMIN TAB PO SCH (09:00)
[2018-04-20] MEDS ORDERED: TAMSULOSIN 0.4 MG SR CAP PO SCH (09:00)
[2018-04-20] MEDS ORDERED: LISINOPRIL 5 MG TAB PO SCH (09:00)
[2018-04-20] MEDS ORDERED: ASPIRIN EC 81 MG TAB PO SCH (09:00)
[2018-04-20] MEDS ORDERED: HOME MED 1 EA UNK (Multivitamin [Multivitamins] 1 EACH) PO SCH (09:00)
[2018-04-20] MEDS ORDERED: CALCIUM CARBONATE 500 MG TAB PO SCH (09:00)
[2018-04-20] MEDS ORDERED: [UNRECOGNIZED DRUG - REMARK] PO SCH (09:00)
[2018-04-20] MEDS ORDERED: HOME MED 1 EA UNK (Pravastatin Sodium [Pravastatin Sodium] 40 MG) PO SCH (09:00)
== END 2018-04-19 18:20 | disposition home health service (06) ==
LOC: ER 18:46 → INTOOBSV 21:52 → ERHOLD 21:52 → 2ND 23:06
PROVIDERS: ADMIT Hospitalist; ATTEND Hospitalist
DX: S01.81XA Laceration without foreign body of other part of head, initial encounter (principal); W06.XXXA Fall from bed, initial encounter; Y92.003 Bedroom of unspecified non-institutional (private) residence as the place of occurrence of the external cause; E11.9 Type 2 diabetes mellitus without complications; G40.909 Epilepsy, unspecified, not intractable, without status epilepticus; N40.0 Benign prostatic hyperplasia without lower urinary tract symptoms; Z86.12 Personal history of poliomyelitis; I10 Essential (primary) hypertension; J32.9 Chronic sinusitis, unspecified; Z79.82 Long term (current) use of aspirin; E78.5 Hyperlipidemia, unspecified
CPT/HCPCS: 36415; 70450; 71260; 72125; 74177; 76700; 80053 ×2; 82962 ×2; 83735; 84100; 85025 ×2; 86850; 86900; 86901; 96365; 97163; 99285; G0378 ×2; J1650; J2543; J7030 ×2; Q9967; 81003; 81015; J1170

== ENCOUNTER 2019-05-31 09:20 | Emergency (ER) | payer OTHER, MEDICARE ==
--- NOTE | 2019-05-31 10:46 | RAD REPORT ---
EXAM DESCRIPTION: CT - Head Brain Wo Cont - 05/31/2019 10:33 am CLINICAL HISTORY: Head injury with headache status post fall COMPARISON: 2019 TECHNIQUE: Computed axial tomography of the head was obtained. IV contrast was not requested. All CT scans are performed using dose optimization technique as appropriate and may include automated exposure control or mA/KV adjustment according to patient size. FINDINGS: An intracranial bleed is not seen . The ventricles are normal in caliber. No extra-axial fluid collection is noted. 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 Fluid within the sinuses/ mastoids is not seen. IMPRESSION: No acute intracranial abnormality is seen. If patient's symptoms persist MRI of the bra in would be recommended.
--- NOTE | 2019-05-31 10:53 | RAD REPORT ---
EXAM DESCRIPTION: CTSpine Lumbar Wo Con05/31/2019 10:34 am CLINICAL HISTORY: Back injury with back pain and radiculopathy status post fall COMPARISON: None TECHNIQUE: Computed axial tomography lumbar spine was obtained with coronal and sagittal reconstruct ion. All CT scans are performed using dose optimization technique as appropriate and may include automated exposure control or mA/KV adjustment according to patient size. FINDINGS: Compression fracture involves the superior endplate of the L2 vertebral body estimated to be 25%. No extension into the posterior elements. There is no retropulsion of fracture fragment into the spinal canal. No dislocation Spondylosis involves L3-4 resulting in moderate to marked central spinal stenosis IMPRESSION: Mild to moderate compression fracture L2 vertebral body
--- NOTE | 2019-05-31 11:14 | RAD REPORT ---
EXAM DESCRIPTION: Katrina Single View05/31/2019 10:57 am CLINICAL HISTORY: Chest pain COMPARISON: March 2018 FINDINGS: The lungs appear clear of acute infiltrate. The heart is normal size. Mild elevation left hemidiaphragm
--- NOTE | 2019-05-31 11:23 | RAD REPORT ---
EXAM DESCRIPTION: RAD - Hip Right 2 View - 05/31/2019 10:56 am CLINICAL HISTORY: Right hip pain FINDINGS: No fracture or dislocation is seen. The bones are osteoporotic. Moderate joint space narrowing. If patient continues to have symptoms to suggest an occult fracture MRI would be recommended
[2019-05-31 11:33] LABS: Absolute Lymphocytes (CBC) 0.9 K/uL (0.7-4.9); Hematocrit 35.2 % (39.6-49.0); RBC Red Blood Cell Count 3.69 M/uL (4.33-5.43)
[2019-05-31 11:40] LABS: ALT/SGPT 67 U/L (12-78); AST/SGOT 39 U/L (15-37); Albumin 3.7 g/dL (3.4-5.0); Alkaline Phosphatase 150 U/L (45-117); BUN Blood Urea Nitrogen 11 mg/dL (7-18); Bicarbonate 28 mmol/L (21-32); Bilirubin Total 0.2 mg/dL (0.2-1.0); Glucose Level 80 mg/dL (74-106); Potassium 4.7 mmol/L (3.5-5.1); Protein, Total 7.7 g/dL (6.4-8.2); Sodium Level 132 mmol/L (136-145)
[2019-05-31 11:41] LABS: Troponin I < 0.02 ng/mL (0.0-0.045)
[2019-05-31 11:57] LABS: Urine Blood NEGATIVE (NEG); Urine Glucose NEGATIVE (NEG); Urine Protein NEGATIVE (NEG); Urine Specific Gravity 1.015 (1.005-1.030); Urine pH 6.5 (5.0-7.0)
--- NOTE | 2019-05-31 12:35 | ER ---
Nurse's Notes [facility] Name: Mango Giron Age: 84 yrs Sex: Male : 1935 Arrival Date: 05/31/2019 Time: 09:24 Bed 5 Private MD: Joanne Rush F Diagnosis: Low back pain;Fracture of lumbar vertebra-compression fracture Presentation: 05/30 09:43 Chief complaint: fell last Thursday and again one time this week, now has pain in lower iw back and right hip. 09:43 Acuity: BARRON 4 iw 09:43 Method Of Arrival: Wheelchair iw 10:34 Coronavirus screen: The patient has NOT traveled to [place] in the past 14 days. Proceed iw with normal triage procedures. Ebola Screen: Patient negative for fever greater than or equal to 101.5 degrees Fahrenheit, and additional compatible Ebola Virus Disease symptoms Patient denies exposure to infectious person. Patient denies travel to an Ebola-affected area in the 21 days before illness onset. No symptoms or risks identified at this time. Initial Sepsis Screen: Does the patient meet any 2 criteria? No. Patient's initial sepsis screen is negative. Does the patient have a suspected source of infection? No. Patient's initial sepsis screen is negative. Risk Assessment: Do you want to hurt yourself or someone else? Patient reports no desire to harm self or others. 10:34 Acuity: BARRON 3 iw Triage Assessment: 09:45 General: Appears in no apparent distress. comfortable, Behavior is cooperative, bp appropriate for age, anxious. Pain: Complains of pain in back. EENT: No deficits noted. Neuro: No deficits noted. Cardiovascular: No deficits noted. Rhythm is sinus rhythm. Respiratory: No deficits noted. GI: No signs and/or symptoms were reported involving the gastrointestinal system. : No signs and/or symptoms were reported regarding the genitourinary system. Derm: No deficits noted. Musculoskeletal: No deficits noted. Historical: - Allergies: :45 Codeine; iw - Home Meds: 09:45 Elizabeth Oral [Active]; aspirin 81 mg Oral chew 1 tab once daily [Active]; atorvastatin iw Oral [Active]; fluticasone [Active]; gabapentin 600 mg Oral tab [Active]; lisinopril 5 mg Oral tab [Active]; metformin 1,000 mg Oral TG24 1 tab 2 times per day [Active]; multivitamin Oral cap [Active]; Phenytoin Oral [Active]; tamsulosin 0.4 mg Oral cp24 1 cap once daily [Active]; - PMHx: :45 Diabetes - NIDDM; enlarged prostate; Hypertension; Polio; Seizures; iw - PSHx: :45 Appendectomy; iw - Immunization history:: Adult Immunizations. - Social history:: Smoking status: Patient denies any tobacco usage or history of. - Family history:: not pertinent. Screenin:45 Abuse screen: Denies threats or abuse. Denies injuries from another. Nutritional bp screening: No deficits noted. Tuberculosis screening: No symptoms or risk factors identified. Fall Risk None identified. Assessment: :45 General: SEE TRIAGE NOTE. bp 11:00 Reassessment: PT RETURNED FROM CT. VS STABLE ON MONITOR. bp 12:00 Reassessment: ALL CURRENT ORDERS IN PROCESS, RESULTS PENDING. NO ACUTE S/S AT THIS TIME.bp 12:59 Reassessment: PT D/C HOME VIA W/C WITH FAMILY, DX WITH BACK PAIN. bp Vital Signs: 09:45 BP 120 / 82; Pulse 69; Resp 16; Temp 98.8; Pulse Ox 99% on R/A; Weight 82.1 kg; Height iw 5 ft. 10 in. (177.80 cm); Pain 8/10; 11:00 BP 120 / 65; Pulse 72; Resp 16; Pulse Ox 95% ; bp 09:45 Body Mass Index 25.97 (82.10 kg, 177.80 cm) iw ED Course: 09:24 Patient arrived in ED. ag5 09:24 Joanne Rush MD is Private Physician. ag5 09:44 Triage completed. iw 09:45 Patient has correct armband on for positive identification. Bed in low position. Call bp light in reach. Side rails up X2. 09:46 Arm band placed on. iw 10:07 Tena Arreguin MD is Attending Physician. ma2 10:15 Kelsea Nugent, FIDEL is Primary Nurse. rb1 10:35 CT Head Brain wo Cont In Process Unspecified. EDMS 10:35 CT Lumbar Spine Wo Con In Process Unspecified. EDMS 10:50 Patient moved to radiology via stretcher. mh1 10:53 Chest Single View XRAY In Process Unspecified. EDMS 10:54 Hip Right 2 View XRAY In Process Unspecified. EDMS 11:10 Inserted saline lock: 22 gauge in right antecubital area, using aseptic technique. bp Blood collected. 12:44 Primary Nurse role handed off by Kelsea Nugent, RN bp 12:44 Darrel Urban, RN is Primary Nurse. bp 12:59 No provider procedures requiring assistance completed. IV discontinued, intact, bp bleeding controlled, No redness/swelling at site. Pressure dressing applied. Administered Medications: No medications were administered Outcome: 12:34 Discharge ordered by . tyler 12:59 Discharged to home via wheelchair, with family. bp 12:59 Condition: stable 12:59 Discharge instructions given to patient, Instructed on discharge instructions, follow up and referral plans. medication usage, Demonstrated understanding of instructions, follow-up care, medications, Prescriptions given X 3. 13:00 Patient left the ED. bp Signatures: Dispatcher [employer] EDMS Siria Ocampo 1 Mara Saab RN RN Kelsea Nugent, FIDEL RN rb1 Darrel Urban, FIDEL RN bp Tena Arreguin MD MD ma2 Nicole Pavon ag5
--- NOTE | 2019-05-31 12:35 | EDPHYS ---
Physician Documentation [facility] Name: Mango Giron Age: 84 yrs Sex: Male : 1935 Arrival Date: 05/31/2019 Time: 09:24 Bed 5 Private MD: Joanne Rush F ED Physician Tena Arreguin HPI: 05/30 11:37 This 84 yrs old Male presents to ER via Wheelchair with complaints of Fall ma2 Injury, Low Back Pain. 11:37 Details of fall: The patient fell from a height. Onset: The symptoms/episode ma2 began/occurred acutely, 2 week(s) ago. Severity of symptoms: At their worst the symptoms were mild, in the emergency department the symptoms are unchanged. The patient has not experienced similar symptoms in the past. Historical: - Allergies: 09:45 Codeine; iw - Home Meds: 09:45 Elizabeth Oral [Active]; aspirin 81 mg Oral chew 1 tab once daily [Active]; atorvastatin iw Oral [Active]; fluticasone [Active]; gabapentin 600 mg Oral tab [Active]; lisinopril 5 mg Oral tab [Active]; metformin 1,000 mg Oral TG24 1 tab 2 times per day [Active]; multivitamin Oral cap [Active]; Phenytoin Oral [Active]; tamsulosin 0.4 mg Oral cp24 1 cap once daily [Active]; - PMHx: 09:45 Diabetes - NIDDM; enlarged prostate; Hypertension; Polio; Seizures; iw - PSHx: 09:45 Appendectomy; iw - Immunization history:: Adult Immunizations. - Social history:: Smoking status: Patient denies any tobacco usage or history of. - Family history:: not pertinent. ROS: 11:37 Constitutional: Negative for fever, chills, and weight loss. ma2 11:37 All other systems are negative. Exam: 11:37 Constitutional: This is a well developed, well nourished patient who is awake, alert, ma2 and in no acute distress. Head/Face: Normocephalic, atraumatic. Eyes: Pupils equal round and reactive to light, extra-ocular motions intact. Lids and lashes normal. Conjunctiva and sclera are non-icteric and not injected. Cornea within normal limits. Periorbital areas with no swelling, redness, or edema. ENT: Nares patent. No nasal discharge, no septal abnormalities noted. Tympanic membranes are normal and external auditory canals are clear. Oropharynx with no redness, swelling, or masses, exudates, or evidence of obstruction, uvula midline. Mucous membranes moist. Neck: Trachea midline, no thyromegaly or masses palpated, and no cervical lymphadenopathy. Supple, full range of motion without nuchal rigidity, or vertebral point tenderness. No Meningismus. Chest/axilla: Normal chest wall appearance and motion. Nontender with no deformity. No lesions are appreciated. Cardiovascular: Regular rate and rhythm with a normal S1 and S2. No gallops, murmurs, or rubs. Normal PMI, no JVD. No pulse deficits. Respiratory: Lungs have equal breath sounds bilaterally, clear to auscultation and percussion. No rales, rhonchi or wheezes noted. No increased work of breathing, no retractions or nasal flaring. Abdomen/GI: Soft, non-tender, with normal bowel sounds. No distension or tympany. No guarding or rebound. No evidence of tenderness throughout. Back: midline L2 spinal tenderness. No costovertebral tenderness. Full range of motion. Skin: Warm, dry with normal turgor. Normal color with no rashes, no lesions, and no evidence of cellulitis. MS/ Extremity: Pulses equal, no cyanosis. Neurovascular intact. Full, normal range of motion. Neuro: Awake and alert, GCS 15, oriented to person, place, time, and situation. Cranial nerves II-XII grossly intact. Motor strength 5/5 in all extremities. Sensory grossly intact. Cerebellar exam normal. Normal gait. Vital Signs: 09:45 BP 120 / 82; Pulse 69; Resp 16; Temp 98.8; Pulse Ox 99% on R/A; Weight 82.1 kg; Height iw 5 ft. 10 in. (177.80 cm); Pain 8/10; 11:00 BP 120 / 65; Pulse 72; Resp 16; Pulse Ox 95% ; bp 09:45 Body Mass Index 25.97 (82.10 kg, 177.80 cm) iw MDM: 10:07 Patient medically screened. ma2 11:37 Differential diagnosis: abrasion, fracture, laceration, multiple trauma, sprain. Data ma2 reviewed: vital signs, nurses notes. Counseling: I had a detailed discussion with the patient and/or guardian regarding: the historical points, exam findings, and any diagnostic results supporting the discharge/admit diagnosis, the presence of at least one elevated blood pressure reading (>120/80) during this emergency department visit, the need for outpatient follow up. Response to treatment: the patient's symptoms have markedly improved after treatment. 05/30 10:17 Order name: CBC with Diff; Complete Time: 12:34 ma2 05/30 10:17 Order name: Troponin I; Complete Time: 12:34 ma2 05/30 10:17 Order name: CT Head Brain wo Cont; Complete Time: 11:18 ma2 05/30 10:17 Order name: CMP; Complete Time: 12:34 ma2 05/30 11:36 Order name: Urine Dipstick--Ancillary (enter results) [facility] [place] 05/30 12:03 Order name: Urine Dipstick-Ancillary [facility] 05/30 10:17 Order name: CT Lumbar Spine Wo Con; Complete Time: 11:18 ma2 05/30 10:17 Order name: Hip Right 2 View XRAY; Complete Time: 12:34 ma2 05/30 10:17 Order name: Chest Single View XRAY; Complete Time: 12:34 ma2 05/30 10:17 Order name: Urine Dipstick-Ancillary (obtain specimen); Complete Time: 11:35 ma2 Administered Medications: No medications were administered Disposition: 05/31/19 12:34 Discharged to Home. Impression: Low back pain, Fracture of lumbar vertebra - compression fracture. - Condition is Stable. - Discharge Instructions: Back Pain, Adult. - Prescriptions for Ibuprofen 600 mg Oral Tablet - take 1 tablet by ORAL route every 6 hours As needed take with food; 30 tablet. Cyclobenzaprine 10 mg Oral Tablet - take 1 tablet by ORAL route every 8 hours As needed; 30 tablet. Tramadol 50 mg Oral Tablet - take 1 tablet by ORAL route every 8 hours as needed; 12 tablet. - Medication Reconciliation Form, Thank You Letter, Antibiotic Education, Prescription Opioid Use form. - Follow up: Private Physician; When: Tomorrow; Reason: If symptoms return, Continuance of care. Signatures: Dispatcher [facility] EDMara Smiley RN RN iw Peltier, Brian, RN RN bp Alzahri, Mohammad MD MD ma2 Corrections: (The following items were deleted from the chart) 13:00 12:34 05/31/2019 12:34 Discharged to Home. Impression: Low back pain; Fracture of bp lumbar vertebra - compression fracture. Condition is Stable. Discharge Instructions: Back Pain, Adult. Prescriptions for Ibuprofen 600 mg Oral Tablet - take 1 tablet by ORAL route every 6 hours As needed take with food; 30 tablet, Cyclobenzaprine 10 mg Oral Tablet - take 1 tablet by ORAL route every 8 hours As needed; 30 tablet, Tramadol 50 mg Oral Tablet - take 1 tablet by ORAL route every 8 hours as needed; 12 tablet. and Forms are Medication Reconciliation Form, Thank You Letter, Antibiotic Education, Prescription Opioid Use. Follow up: Private Physician; When: Tomorrow; Reason: If symptoms return, Continuance of care. ma2
[2019-05-31 13:53] VITALS: TEMP 98.8
[2019-05-31 13:54] VITALS: BP 120/65; O2SAT 95
== END 2019-05-31 13:00 | disposition home or self-care (01) ==
LOC: ER 09:20
DX: S32.029A Unspecified fracture of second lumbar vertebra, initial encounter for closed fracture (principal); W17.89XA Other fall from one level to another, initial encounter; Y93.9 Activity, unspecified; Y92.9 Unspecified place or not applicable; Z79.82 Long term (current) use of aspirin; Z88.5 Allergy status to narcotic agent; I10 Essential (primary) hypertension; E11.9 Type 2 diabetes mellitus without complications; G40.909 Epilepsy, unspecified, not intractable, without status epilepticus
CPT/HCPCS: 36415; 70450; 71045; 72131; 80053; 81003; 84484; 85025; 99284

== ENCOUNTER 2020-08-17 11:30 | Inpatient (IN) | payer OTHER, MEDICARE ==
[2020-08-17 12:28] LABS: Absolute Lymphocytes (CBC) 0.7 K/uL (0.7-4.9); Basophils % 0.8 % (0-1.3); Hematocrit 35.4 % (39.6-49.0); Lymphocytes % 6.6 % (15.3-44.8); MPV 7.6 fL (7.6-11.3); RBC Red Blood Cell Count 3.73 M/uL (4.33-5.43)
[2020-08-17 12:29] LABS: Protime INR 1.03
[2020-08-17 12:42] LABS: CKMB Creatine Kinase MB 1.1 ng/mL (0.3-3.6)
[2020-08-17 12:43] LABS: ALT/SGPT 20 U/L (12-78); AST/SGOT 19 U/L (15-37); Albumin 3.7 g/dL (3.4-5.0); Alkaline Phosphatase 112 U/L (45-117); BUN Blood Urea Nitrogen 13 mg/dL (7-18); Bicarbonate 26 mmol/L (21-32); Bilirubin Direct 0.1 mg/dL (0-0.2); Bilirubin Total 0.3 mg/dL (0.2-1.0); Glucose Level 97 mg/dL (74-106); Magnesium 1.9 mg/dL (1.8-2.4); NT PRO-BNP 189 pg/mL (<450); Potassium 4.3 mmol/L (3.5-5.1); Protein, Total 7.8 g/dL (6.4-8.2); Sodium Level 131 mmol/L (136-145); Troponin (Emerg Dept Use Only) < 0.02 ng/mL (0.0-0.045)
[2020-08-17] MEDS ORDERED: NA CHLORIDE 0.9% 2,000 ML ONE (12:47)
--- NOTE | 2020-08-17 12:53 | RAD REPORT ---
EXAM DESCRIPTION: RAD - Chest Single View - 08/17/2020 12:36 pm CLINICAL HISTORY: weakness, cough, hypertension COMPARISON: Portable May 2019, two view chest March 2018 TECHNIQUE: AP portable chest image was obtained 08/17/2020 12:36 pm . FINDINGS: No dense mass or consolidation. Lung volumes are reduced compared to the prior imaging. Me dial right base stranding is slightly more pronounced than the prior study. This could be a combinati ons of chronic lung disease and partial atelectasis. Medial right base infiltrate is not excluded and needs correlation with clinical findings. Heart and vasculature are normal. No measurable pleural effusion and no pneumothorax. No acute bony abnormality seen. No acute aortic findings suspected. IMPRESSION: Interstitial stranding medial right base slightly more pronounced in comparison. This could be scarring and partial atelectasis as well as minimal medial right base infiltrate. Corre lation can be made with exam findings.
[2020-08-17 14:19] LABS: Urine Blood Negative (Negative); Urine Glucose Negative (Negative); Urine Protein Negative (Negative); Urine Specific Gravity 1.015 (1.005-1.030)
[2020-08-17 15:08] LABS: Urine Bacteria <20 /HPF (NONE SEEN); Urine RBC <5 /HPF (NONE SEEN)
--- NOTE | 2020-08-17 16:43 | ER ---
Nurse's Notes [facility] Name: Mango Giron Age: 85 yrs Sex: Male : 1935 Arrival Date: 08/17/2020 Time: 11:34 Bed 13 Private MD: Diagnosis: Weakness;Other pneumonia, unspecified [id number];Altered mental status, unspecified Presentation: 08/17 11:43 Chief complaint: Cough x 2 weeks, generalized weakness 2-3 days, confusion today. hb Denies pain. Coronavirus screen: Client presents with at least one sign or symptom that may indicate coronavirus-19. Standard/surgical mask placed on the client. Provider contacted for isolation considerations. Ebola Screen: No symptoms or risks identified at this time. Risk Assessment: Do you want to hurt yourself or someone else? Patient reports no desire to harm self or others. Onset of symptoms was August 04, 2020. 11:43 Method Of Arrival: Wheelchair 11:43 Acuity: BARRON 2 hb Historical: - Allergies: 11:45 Codeine; hb - Home Meds: 12:35 Elizabeth Oral [Active]; aspirin 81 mg Oral chew 1 tab once daily [Active]; atorvastatin vg1 Oral [Active]; fluticasone [Active]; gabapentin 600 mg Oral tab [Active]; lisinopril 5 mg Oral tab [Active]; metformin 1,000 mg Oral TG24 1 tab 2 times per day [Active]; multivitamin Oral cap [Active]; Phenytoin Oral [Active]; tamsulosin 0.4 mg Oral cp24 1 cap once daily [Active]; - PMHx: 11:45 Diabetes - NIDDM; Hypertension; enlarged prostate; Polio; Seizures; hb - PSHx: 11:45 Appendectomy; hb - Immunization history:: Adult Immunizations up to date. - Social history:: Smoking status: Patient denies any tobacco usage or history of. Screenin:16 Abuse screen: Denies threats or abuse. Nutritional screening: No deficits noted. vg1 Tuberculosis screening: No symptoms or risk factors identified. Fall Risk No fall in past 12 months (0 pts). No secondary diagnosis (0 pts). IV access (20 points). Ambulatory Aid- None/Bed Rest/Nurse Assist (0 pts). Gait- Normal/Bed Rest/Wheelchair (0 pts) Mental Status- Oriented to own ability (0 pts). Total Bishop Fall Scale indicates No Risk (0-24 pts). Assessment: 12:14 General: Appears in no apparent distress. comfortable, Behavior is calm, cooperative. vg1 Pain: Denies pain. Neuro: Level of Consciousness is awake, alert, obeys commands, Oriented to person, place, time, situation. Cardiovascular: Patient's skin is warm and dry. Respiratory: Reports cough that is Airway is patent Respiratory effort is even, unlabored. GI: No signs and/or symptoms were reported involving the gastrointestinal system. : No signs and/or symptoms were reported regarding the genitourinary system. EENT: No signs and/or symptoms were reported regarding the EENT system. Derm: Skin is intact, Skin is pink, warm \T\ dry. Musculoskeletal: Circulation, motion, and sensation intact. 13:26 Reassessment: Patient appears in no apparent distress at this time. Patient and/or vg1 family updated on plan of care and expected duration. Pain level reassessed. Patient is alert, oriented x 3, equal unlabored respirations, skin warm/dry/pink. Pt daughter at bedside. 14:47 Reassessment: Patient appears in no apparent distress at this time. Patient and/or vg1 family updated on plan of care and expected duration. Pain level reassessed. Patient is alert, oriented x 3, equal unlabored respirations, skin warm/dry/pink. Patient denies pain at this time. 16:21 Reassessment: Patient appears in no apparent distress at this time. Patient and/or vg1 family updated on plan of care and expected duration. Pain level reassessed. Patient is alert, oriented x 3, equal unlabored respirations, skin warm/dry/pink. Patient denies pain at this time. Patient states feeling better. Vital Signs: 11:43 BP 112 / 57; Pulse 105; Resp 20; Temp 98.4(O); Pulse Ox 97% on R/A; Pain 0/10; hb 12:15 BP 111 / 59; Pulse 105; Resp 16; Pulse Ox 95% on R/A; vg1 12:18 Weight 72.57 kg; vg1 13:00 BP 122 / 65; Pulse 96; Resp 16; Pulse Ox 96% on R/A; vg1 13:30 BP 131 / 78; Pulse 94; Resp 20; Pulse Ox 98% on R/A; vg1 14:00 BP 120 / 68; Pulse 93; Resp 16; Pulse Ox 97% on R/A; vg1 14:30 BP 136 / 69; Pulse 95; Resp 16; Pulse Ox 96% on R/A; vg1 15:00 BP 126 / 64; Pulse 94; Resp 16; Pulse Ox 99% on R/A; vg1 15:30 BP 130 / 60; Pulse 95; Resp 16; Pulse Ox 97% on R/A; vg1 16:00 BP 123 / 62; Pulse 94; Resp 14; Pulse Ox 97% on R/A; vg1 ED Course: 11:34 Patient arrived in ED. mr 11:45 Triage completed. hb 11:45 Arm band placed on. hb 11:50 Ganga Andujar MD is Attending Physician. kdr 11:57 Rhiannon Khoury, FIDEL is Primary Nurse. vg1 12:13 Inserted saline lock: 22 gauge in right wrist, using aseptic technique. ,using aseptic vg1 technique. Completed by FIDEL Hernández Blood collected. 12:15 EKG done, by ED staff, reviewed by Rhiannon Khoury RN. jp3 12:16 Patient has correct armband on for positive identification. Placed in gown. Bed in low vg1 position. Call light in reach. Side rails up X2. Adult w/ patient. 12:22 First set of blood cultures drawn by me. jp3 12:30 Second set of blood cultures drawn by me. jp3 12:36 XRAY Chest (1 view) In Process Unspecified. EDMS 14:47 Repeat lab(s) drawn. by me, sent to lab. vg1 16:41 Joanne Rush MD is Hospitalizing Provider. kdr 17:16 Repeat lab(s) drawn. by me, sent to lab. COVID swab sent to lab. ca1 18:29 No provider procedures requiring assistance completed. Patient admitted, IV remains in vg1 place. 19:32 Report given to Eva. jen Administered Medications: 12:32 Drug: NS 0.9% (30 ml/kg) 30 ml/kg Route: IV; Rate: bolus; Site: right wrist; vg1 13:25 Drug: NS 0.9% (30 ml/kg) 30 ml/kg Route: IV; Rate: bolus; Site: right wrist; vg1 Outcome: 16:42 Decision to Hospitalize by Provider. kdr 19:55 Admitted to Med/surg accompanied by tech, via wheelchair, with chart, Report called to jen Velasquez 19:55 Condition: good 19:55 Instructed on the need for admit. 19:57 Patient left the ED. jen Signatures: Dispatcher [employer] EDMS Ganga Andujar MD MD kdr Rivera, Mary mr Hermelinda Le, RN RN Mandeep Alejandro jp3 Rachel Millan, RN RN ca1 Rhiannon Khoury, RN RN vg1 Sorin Concepcion, RN RN [id number]
--- NOTE | 2020-08-17 16:43 | EDPHYS ---
Physician Documentation [facility] Name: Mango Giron Age: 85 yrs Sex: Male : 1935 Arrival Date: 08/17/2020 Time: 11:34 Bed 13 Private MD: ED Physician Ganga Andujar HPI: 08/17 13:12 This 85 yrs old Male presents to ER via Wheelchair with complaints of kdr Confusion, Weakness, Cough, Fever. 13:12 The patient presents to the emergency department with weakness of the entire body, kdr generalized weakness, Becoming confused and weak over the last few days. Onset: The symptoms/episode began/occurred acutely, suddenly, 10 day(s) ago. Context: occurred at home. Severity of symptoms: At their worst the symptoms were mild moderate in the emergency department the symptoms have improved mildly. Patient's baseline: Neuro: alert and fully oriented, Motor: no deficits, Ambulation: walks without assistance, Speech: normal for age, slow. The patient has not experienced similar symptoms in the past. The patient has not recently seen a physician. Historical: - Allergies: 11:45 Codeine; hb - Home Meds: 12:35 Elizabeth Oral [Active]; aspirin 81 mg Oral chew 1 tab once daily [Active]; atorvastatin vg1 Oral [Active]; fluticasone [Active]; gabapentin 600 mg Oral tab [Active]; lisinopril 5 mg Oral tab [Active]; metformin 1,000 mg Oral TG24 1 tab 2 times per day [Active]; multivitamin Oral cap [Active]; Phenytoin Oral [Active]; tamsulosin 0.4 mg Oral cp24 1 cap once daily [Active]; - PMHx: 11:45 Diabetes - NIDDM; Hypertension; enlarged prostate; Polio; Seizures; hb - PSHx: 11:45 Appendectomy; hb - Immunization history:: Adult Immunizations up to date. - Social history:: Smoking status: Patient denies any tobacco usage or history of. ROS: 13:12 Constitutional: Negative for fever, chills, and weight loss, Eyes: Negative for injury, kdr pain, redness, and discharge, Neck: Negative for injury, pain, and swelling, Cardiovascular: Negative for chest pain, palpitations, and edema, Respiratory: Negative for shortness of breath, cough, wheezing, and pleuritic chest pain, Abdomen/GI: Negative for abdominal pain, nausea, vomiting, diarrhea, and constipation, Back: Negative for injury and pain, : Negative for injury, bleeding, discharge, and swelling, MS/Extremity: Negative for injury and deformity, Skin: Negative for injury, rash, and discoloration, Psych: Negative for depression, anxiety, suicide ideation, homicidal ideation, and hallucinations, Allergy/Immunology: Negative for hives, rash, and allergies, Endocrine: Negative for neck swelling, polydipsia, polyuria, polyphagia, and marked weight changes, Hematologic/Lymphatic: Negative for swollen nodes, abnormal bleeding, and unusual bruising. 13:12 Neuro: Positive for weakness, Negative for altered mental status, dizziness, gait disturbance, headache, hearing loss, loss of consciousness, numbness, seizure activity, syncope, near syncope. 13:12 Constitutional: Negative for fever, chills, and weight loss. kdr Exam: 13:12 Constitutional: This is a well developed, well nourished patient who is awake, alert, kdr and in no acute distress. Head/Face: Normocephalic, atraumatic. Eyes: Pupils equal round and reactive to light, extra-ocular motions intact. Lids and lashes normal. Conjunctiva and sclera are non-icteric and not injected. Cornea within normal limits. Periorbital areas with no swelling, redness, or edema. Neck: Trachea midline, no thyromegaly or masses palpated, and no cervical lymphadenopathy. Supple, full range of motion without nuchal rigidity, or vertebral point tenderness. No Meningismus. Chest/axilla: Normal chest wall appearance and motion. Nontender with no deformity. No lesions are appreciated. Cardiovascular: Regular rate and rhythm with a normal S1 and S2. No gallops, murmurs, or rubs. Normal PMI, no JVD. No pulse deficits. Respiratory: Lungs have equal breath sounds bilaterally, clear to auscultation and percussion. No rales, rhonchi or wheezes noted. No increased work of breathing, no retractions or nasal flaring. Abdomen/GI: Soft, non-tender, with normal bowel sounds. No distension or tympany. No guarding or rebound. No evidence of tenderness throughout. Back: No spinal tenderness. No costovertebral tenderness. Full range of motion. Skin: Warm, dry with normal turgor. Normal color with no rashes, no lesions, and no evidence of cellulitis. MS/ Extremity: Pulses equal, no cyanosis. Neurovascular intact. Full, normal range of motion. Neuro: Awake and alert, GCS 15, oriented to person, place, time, and situation. Cranial nerves II-XII grossly intact. Motor strength 5/5 in all extremities. Sensory grossly intact. Cerebellar exam normal. Normal gait. Psych: Awake, alert, with orientation to person, place and time. Behavior, mood, and affect are within normal limits. 13:12 ECG was reviewed by the Attending Physician. Vital Signs: 11:43 BP 112 / 57; Pulse 105; Resp 20; Temp 98.4(O); Pulse Ox 97% on R/A; Pain 0/10; hb 12:15 BP 111 / 59; Pulse 105; Resp 16; Pulse Ox 95% on R/A; vg1 12:18 Weight 72.57 kg; vg1 13:00 BP 122 / 65; Pulse 96; Resp 16; Pulse Ox 96% on R/A; vg1 13:30 BP 131 / 78; Pulse 94; Resp 20; Pulse Ox 98% on R/A; vg1 14:00 BP 120 / 68; Pulse 93; Resp 16; Pulse Ox 97% on R/A; vg1 14:30 BP 136 / 69; Pulse 95; Resp 16; Pulse Ox 96% on R/A; vg1 15:00 BP 126 / 64; Pulse 94; Resp 16; Pulse Ox 99% on R/A; vg1 15:30 BP 130 / 60; Pulse 95; Resp 16; Pulse Ox 97% on R/A; vg1 16:00 BP 123 / 62; Pulse 94; Resp 14; Pulse Ox 97% on R/A; vg1 MDM: 16:42 Patient medically screened. kdr 16:51 Data reviewed: vital signs, lab test result(s), EKG, radiologic studies. Counseling: I kdr had a detailed discussion with the patient and/or guardian regarding: the historical points, exam findings, and any diagnostic results supporting the discharge/admit diagnosis, lab results, radiology results, the need for further work-up and treatment in the hospital. Physician consultation: Joanne Rush MD regarding admission, consult, patient's condition, and will see patient in inpatient room, later today. Admission orders: after a detailed discussion of the patient's condition and case, the admit orders are written by me. Special discussion:. 08/17 11:52 Order name: Basic Metabolic Panel; Complete Time: 13:08 [facility] 08/17 11:52 Order name: CBC with Diff; Complete Time: 13: [facility] 08/17 11:52 Order name: LFT's; Complete Time: 13: [facility] 08/17 11:52 Order name: Magnesium; Complete Time: 13: [facility] 08/17 11:52 Order name: NT PRO-BNP; Complete Time: 13: [facility] 08/17 11:52 Order name: PT-INR; Complete Time: 13: [facility] 08/17 11:52 Order name: Troponin (emerg Dept Use Only); Complete Time: 13: [facility] 08/17 12:06 Order name: Amylase, Serum [facility] 08/17 12:06 Order name: Blood Culture Adult (2) [facility] 08/17 12:06 Order name: Ckmb [facility] 08/17 12:06 Order name: CPK; Complete Time: 13: [facility] 08/17 12:06 Order name: Lactate; Complete Time: 13:08 [facility] 08/17 12:06 Order name: Lipase; Complete Time: 13: [facility] 08/17 11:52 Order name: XRAY Chest (1 view); Complete Time: 13: [facility] 08/17 12:06 Order name: Ptt, Activated; Complete Time: 13: [facility] 08/17 12:06 Order name: Urine Microscopic Only; Complete Time: 16:09 [facility] 08/17 12:06 Order name: Amylase; Complete Time: 13:08 [facility] 08/17 12:06 Order name: Blood Culture [facility] 08/17 12:06 Order name: CKMB Creatine Kinase MB; Complete Time: 13: [facility] 08/17 14:19 Order name: Urine Dipstick-Ancillary; Complete Time: 14: [facility] 08/17 14:34 Order name: Lactate; Complete Time: 16:09 [facility] 08/17 15:07 Order name: Procalcitonin; Complete Time: 16:54 [facility] 08/17 16:50 Order name: Troponin I [facility] 08/17 16:50 Order name: Troponin I [facility] 08/17 16:54 Order name: COVID-19 : Document "Date of Symptom Onset" if Symptomatic. [facility] 08/17 16:54 Order name: CORONAVIRUS [facility] 08/17 18:28 Order name: SARS-COV-2 RT PCR [facility] 08/17 11:52 Order name: EKG; Complete Time: 11:52 [facility] 08/17 11:52 Order name: Cardiac monitoring; Complete Time: 12:12 [facility] 08/17 11:52 Order name: EKG - Nurse/Tech; Complete Time: 12:12 [facility] 08/17 11:52 Order name: IV Saline Lock; Complete Time: 12:19 [facility] 08/17 11:52 Order name: Labs collected and sent; Complete Time: 12:13 [facility] 08/17 11:52 Order name: O2 Per Protocol; Complete Time: 12:13 [facility] 08/17 11:52 Order name: O2 Sat Monitoring; Complete Time: 12:13 [facility] 08/17 12:06 Order name: Accucheck; Complete Time: 12:26 [facility] 08/17 12:06 Order name: IV Saline Lock - Large Bore; Complete Time: 12:18 [facility] 08/17 12:06 Order name: Urine Dipstick-Ancillary (obtain specimen); Complete Time: 14:15 kdr EC:12 Rate is 100 beats/min. Rhythm is regular, Sinus Rhythm with No ectopy. QRS [place] is kdr Normal. CO interval is normal. QRS interval is normal. QT interval is normal. Clinical impression: NSR w/ Non-specific ST/T Changes. Administered Medications: 12:32 Drug: NS 0.9% (30 ml/kg) 30 ml/kg Route: IV; Rate: bolus; Site: right wrist; vg1 13:25 Drug: NS 0.9% (30 ml/kg) 30 ml/kg Route: IV; Rate: bolus; Site: right wrist; vg1 Disposition: 08/17/20 16:42 Hospitalization ordered by Joanne Rush for Observation. Preliminary diagnosis are Weakness, Other pneumonia, unspecified organism - non-COVID, Altered mental status, unspecified. - Bed requested for Telemetry/MedSurg (observation). - Status is Observation. jm8 - Condition is Fair. - Problem is new. - Symptoms have improved. Signatures: Dispatcher [employer] [facility] Eva Liriano RN RN dw Rittger, Kevin, MD MD [facility] Hermelinda Le, RN RN Rhiannon Khoury, RN RN vg1 Sorin Concepcion, RN RN jm8 Corrections: (The following items were deleted from the chart) 18:38 16:42 Hospitalization Ordered by Joanne Rush MD for Observation. Preliminary dw diagnosis is Weakness; Other pneumonia, unspecified organism - non-COVID; Altered mental status, unspecified. Bed requested for Telemetry/MedSurg (observation). Status is Observation. Condition is Fair. Problem is new. Symptoms have improved. [facility] 19:57 18:38 08/17/2020 16:42 Hospitalization Ordered by Joanne Rush MD for Observation. jm8 Preliminary diagnosis is Weakness; Other pneumonia, unspecified organism - non-COVID; Altered mental status, unspecified. Bed requested for Telemetry/MedSurg (observation). Status is Observation. Condition is Fair. Problem is new. Symptoms have improved. dw
[2020-08-17] MEDS ORDERED: ALBUTEROL 2.5 MG/3 ML NEB SOL NEB PRN (16:47)
[2020-08-17] MEDS ORDERED: ACETAMINOPHEN 500 MG TAB PO PRN (16:47)
[2020-08-17] MEDS ORDERED: IPRATROPIUM BROM 0.5MG/2.5ML NEB PRN (16:47)
[2020-08-17] MEDS ORDERED: D50W 25 GM/50 ML SYRINGE IV PRN (20:46)
[2020-08-17] MEDS ORDERED: GLUCAGON 1 MG/VIAL IM PRN (20:46)
[2020-08-17] MEDS: CEFTRIAXONE/SWI 1gm 1 GM/10 ML SYR IVP SCH ×2 (21:00→21:33)
[2020-08-17] MEDS: INSULIN -REGULAR HUMAN 50 UNIT/0.5 ML ML SQ SCH (21:00)
[2020-08-17 21:22] VITALS: BMI 23.2
[2020-08-18 04:16] LABS: Absolute Lymphocytes (CBC) 1.1 K/uL (0.7-4.9); Basophils % 0.4 % (0-1.3); Hematocrit 34.6 % (39.6-49.0); Lymphocytes % 10.2 % (15.3-44.8); MPV 7.7 fL (7.6-11.3); RBC Red Blood Cell Count 3.65 M/uL (4.33-5.43)
[2020-08-18 04:36] LABS: BUN Blood Urea Nitrogen 8 mg/dL (7-18); Bicarbonate 31 mmol/L (21-32); Glucose Level 112 mg/dL (74-106); NT PRO-BNP 1012 pg/mL (<450); Potassium 4.1 mmol/L (3.5-5.1); Sodium Level 137 mmol/L (136-145)
[2020-08-18] MEDS: INSULIN -REGULAR HUMAN 50 UNIT/0.5 ML ML SQ SCH ×4 (07:30→21:00)
[2020-08-18] MEDS: CEFTRIAXONE/SWI 1gm 1 GM/10 ML SYR IVP SCH ×2 (08:00→21:27)
--- NOTE | 2020-08-18 10:39 | RAD REPORT ---
EXAM DESCRIPTION: RAD - Chest Single View - 08/18/2020 5:25 am CLINICAL HISTORY: Chest Pain Chest pain. COMPARISON: Chest Single View dated 08/17/2020; Chest Single View dated 05/31/2019; Chest Pa And Lat (2 Views) dated 04/16/2018; Chest Single View dated 11/25/2016 FINDINGS: Portable technique limits examination quality. The lungs are grossly clear. The heart is normal in size. No displaced fractures. IMPRESSION: No acute intrathoracic process suspected.
[2020-08-18] MEDS ORDERED: LACTULOSE 20 GM/30 ML UCUP PO ONE (12:38)
[2020-08-18] MEDS: PHENYTOIN ER 100 MG CAP PO SCH ×2 (13:28→21:28)
[2020-08-18] MEDS ORDERED: HOME MED 1 EA UNK (Gabapentin [Gabapentin] 600 MG Tablet) PO SCH (14:00)
[2020-08-18] MEDS ORDERED: GABAPENTIN 300 MG CAP PO SCH ×2 (14:00→21:00)
[2020-08-18] MEDS ORDERED: HOME MED 1 EA UNK (Metformin Hcl [Metformin Hcl] 1,000 MG Tablet) PO SCH (18:00)
[2020-08-18] MEDS ORDERED: METFORMIN HCL 500 MG TAB PO SCH (18:00)
[2020-08-18] MEDS: ATORVASTATIN 10 MG TAB PO SCH (21:28)
--- NOTE | 2020-08-19 01:10 | HP ---
Date of Admission: 08/18/2020 An 85-year-old male who started complaining about cough for most part is dry for about 2 weeks and th en he started having increased coughing and shortness of breath. He came to the emergency room and a suspicion of right basilar pneumonia was suspected and so he was admitted for observation. The tonya ent had mild increased shortness of breath; have no fever, no chills and voiced no other complaints. Review of Systems: Cardiovascular: No complaints. Respiratory: As above. Gastrointestinal: No complaints. Genitourinary: No complaints. Neurological: No complaint. Skeletomuscular: No complaints. Past Medical History: 1.Type 2 diabetes mellitus. 2.Hypertension. 3.Hyperlipidemia. 4.History of generalized seizure disorder. 5.Benign prostatic hypertrophy. 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 Medications: Include aspirin 81 mg p.o. daily, atorvastatin, gabapentin 600 mg, lisinopril 500 mg p. o. daily, metformin 1000 mg p.o. b.i.d., phenytoin, Tamsulosin, multivitamins and Elizabeth. Allergies: CODEINE. Physical Examination: Vital Signs: Blood pressure 130/60, pulse 73, temperature 97.8, pulse oximetry on room air 95%. Heart: Regular rate and rhythm. Chest: Right basilar crackles. Abdomen: Soft, nontender. No hepatosplenomegaly. Bowel sounds are normoactive. Extremities: No edema. No cyanosis. Peripheral pulses are felt. Neurological examination: Alert, oriented, nonfocal. Grossly intact. Laboratory Data: White cell count 10.5, hemoglobin 11.7, hematocrit 34.6, platelets 255. BUN 8, cre atinine 0.49, GFR more than 90. Blood sugar 112. Troponin less than 0.02. Urinalysis negative. BM P 1012. Assessment/plan: Right basilar pneumonia. The patient is being admitted for observation. We will p ut him on IV Rocephin. Continue his home medications. Put him on breathing treatment and put him on sliding scale of regular insulin with q.a.c. and h.s. blood sugar fingersticks. The patient continu es to do well. I think he can be discharged in the morning. MFS/MODL Voice ID: [id number]
[2020-08-19] MEDS: INSULIN -REGULAR HUMAN 50 UNIT/0.5 ML ML SQ SCH ×4 (07:30→20:55)
[2020-08-19] MEDS: PHENYTOIN ER 100 MG CAP PO SCH ×3 (08:25→20:53)
[2020-08-19] MEDS: METFORMIN HCL 500 MG TAB PO SCH ×2 (08:25→16:14)
[2020-08-19] MEDS: CEFTRIAXONE/SWI 1gm 1 GM/10 ML SYR IVP SCH ×2 (08:26→20:53)
[2020-08-19] MEDS: ASPIRIN EC 81 MG TAB PO SCH (08:26)
[2020-08-19] MEDS: CALCIUM CARBONATE 500 MG TAB PO SCH (08:26)
[2020-08-19] MEDS: TAMSULOSIN 0.4 MG SR CAP PO SCH (08:26)
[2020-08-19] MEDS ORDERED: lisinopriL 5 MG TAB PO SCH (09:00)
[2020-08-19] MEDS ORDERED: HOME MED 1 EA UNK (Pravastatin Sodium [Pravastatin Sodium] 40 MG Tablet) PO SCH (09:00)
[2020-08-19] MEDS ORDERED: GABAPENTIN 300 MG CAP PO SCH (09:00)
--- NOTE | 2020-08-19 14:34 | DS ---
History Of Present Illness: The patient is an 85-year-old male, who was admitted to the hospital bec ause of right basilar pneumonia. Past Medical History: As per the admit note. Social History: As per the admit note. Family History: As per the admit note. Medications: As per the admit note. Allergies: PER THE ADMIT NOTE. Physical Examination: As per the admit note. Diagnostic Data: As per the admit note. Hospital Course: The patient was admitted to the hospital. He was put on IV Rocephin, put him also on regular insulin sliding scale with checking q.a.c. and at bedtime blood sugar fingersticks. Summer nue the home medicines for his chronic medical illnesses. The patient's pulse oximetry showed that t he patient remained about 90% on room air. He was doing well. His cough and his mild shortness of b reath that he presented with have improved to where he is at his baseline. I think at this point darlene t the patient will be discharged home to continue his home medications and discharged home on Zithrom ax packet 250 mg and the patient will follow up with me. Look discharge orders for details. MFS/MODL Voice ID: [id number] Report ID: [id number]
[2020-08-19] MEDS ORDERED: NA CHLORIDE 0.9% 250 ML IV ONE ×2 (15:02→17:46)
[2020-08-19] MEDS: ATORVASTATIN 10 MG TAB PO SCH (20:53)
[2020-08-20] MEDS: INSULIN -REGULAR HUMAN 50 UNIT/0.5 ML ML SQ SCH ×2 (07:30→11:30)
[2020-08-20] MEDS: METFORMIN HCL 500 MG TAB PO SCH (08:00)
[2020-08-20] MEDS: ASPIRIN EC 81 MG TAB PO SCH (08:00)
[2020-08-20] MEDS: TAMSULOSIN 0.4 MG SR CAP PO SCH (08:00)
[2020-08-20] MEDS: PHENYTOIN ER 100 MG CAP PO SCH (08:00)
[2020-08-20] MEDS: CEFTRIAXONE/SWI 1gm 1 GM/10 ML SYR IVP SCH (08:01)
[2020-08-20] MEDS: CALCIUM CARBONATE 500 MG TAB PO SCH (08:09)
[2020-08-20 09:15] VITALS: O2SAT 97
[2020-08-20 12:22] VITALS: BP 129/60; TEMP 97.4
--- NOTE | 2020-08-20 13:02 | DS ---
Addendum: I have held on the patient discharge for 1 day as noted that the patient's blood pressure was systolic and was down in the 90s and he was feeling sleepy, lethargic with the gabapentin. So I stopped his gabapentin, stopped his lisinopril, gave him IV fluids, 500 mL normal saline. This morni ng; his blood pressure 120/65, pulse 76, temperature 97.8. He is alert, oriented, and feeling well. I think we can go ahead and discharge the patient with instructions, stop his gabapentin and his lis inopril. We will follow up him as an outpatient. MFS/MODL Voice ID: [id number] Report ID: [id number]
--- NOTE | 2020-08-20 14:09 | ECHO ---
HEIGHT: 5 ft 10 in WEIGHT: 161 lb 11.2 oz DATE OF STUDY: 08/20/[address]: Joanne Rush MD 2-DIMENSIONAL: YES M.MODE: YES DOPPLER: YES COLOR FLOW: YES TDS: PORTABLE: DEFINITY: BUBBLE STUDY: DIAGNOSIS: WEAKNESS CARDIAC HISTORY: CATHERIZATION: SURGERY: PROSTHETIC VALVE: PACEMAKER: MEASUREMENTS (cm) DIASTOLIC (NORMALS) SYSTOLIC (NORMALS) IVSd 1.0 (0.6-1.2) LA Diam 3.0 (1.9-4.0) LVEF 55-60% LVIDd 3.5 (3.5-5.7) LVIDs 2.0 (2.0-3.5) %FS 44% LVPWd 1.1 (0.6-1.2) Ao Diam 2.8 (2.0-3.7) 2 DIMENSIONAL ASSESSMENT: RIGHT ATRIUM: NORMAL LEFT ATRIUM: NORMAL RIGHT VENTRICLE: NORMAL LEFT VENTRICLE: NORMAL TRICUSPID VALVE: NORMAL MITRAL VALVE: NORMAL PULMONIC VALVE: NORMAL AORTIC VALVE: NORMAL PERICARDIAL EFFUSION: NONE AORTIC ROOT: NORMAL LEFT VENTRICULAR WALL MOTION: NORMAL DOPPLER/COLOR FLOW: NORMAL COMMENTS: NORMAL LEFT VENTRICULAR EJECTION FRACTION 55-60%. NORMAL WALL MOTION. TECHNOLOGIST: VANESSA PATEL
== END 2020-08-20 13:24 | disposition home or self-care (01) | DRG 195 ==
LOC: ER 11:30 → ERHOLD 16:50 → 4TH 19:44 → OBSVTOIN 08-18 16:12
PROVIDERS: ADMIT Internal Medicine; ATTEND Internal Medicine
DX: J18.9 Pneumonia, unspecified organism (principal); E11.9 Type 2 diabetes mellitus without complications; E78.5 Hyperlipidemia, unspecified; N40.0 Benign prostatic hyperplasia without lower urinary tract symptoms; I10 Essential (primary) hypertension; R53.1 Weakness; Z88.5 Allergy status to narcotic agent; Z79.82 Long term (current) use of aspirin; Z79.84 Long term (current) use of oral hypoglycemic drugs; Z90.49 Acquired absence of other specified parts of digestive tract; Z79.899 Other long term (current) drug therapy; Z20.822 Contact with and (suspected) exposure to COVID-19
CPT/HCPCS: 36415; 71045; 80048; 80076; 81003; 81015; 82150; 82550; 82553; 82947; 83605; 83690; 83735; 83880; 84145; 84484; 85025; 85610; 85730; 87040; 93005; 93306; 94760; 96374; 97116; 97161; 97530; 99285; G0378; J0696; J7030; J7050; U0003

== ENCOUNTER 2022-03-13 12:00 | Emergency (ER) | payer OTHER, MEDICARE ==
--- OUTSIDE RECORDS SUMMARY | 2022-03-13 12:04 | XMS REPORT | Continuity of Care Document ---
:1935 Author Organization [facility] t Address 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 Essential Essential Problem Com mon hypertensi (primary) Spi rit on hypertensi - [facility] on [facility] Hyperglyce Type 2 Problem Commo n chad due to diabetes Spir it type 2 mellitus - CHI diabetes with mellitus [facility] Left side Sciatica, Problem Com mon sciatica left side Spiri t - CHI [facility] [id number] History of Problem Co mmon post-polio [facility] syndrome - [facility]I [facility] [id number] Benign Problem Common prostatic [facility] hyperplasi - [facility] a with [facility] urinary Medical tract Center symptoms [id number] Type 2 Problem Common diabetes [facility] mellitus - [facility] with [facility] without [place] long-term current use of insulin [id number] Seizure Problem Commo n disorder [facility] - 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 [id number] Mixed Problem Common hyperlipid [facility] emia - [facility] Allergies, Adverse Reactions, Alerts This patient has no known allergies or adverse reactions. Social History Social Habit Start Date Stop Date Quantity Comments Source History of Tobacco Use Co mmon [facility] Sex Assigned At Com [facility] Smoking Status Start Date Stop Date Source Never Smoker Common [facility] Medications Ordered Filled Start Stop Current Ordering Indication Dosage Frequency Signature Comments Components Source Medication Medication Date Date Medication? Clinician (SIG) Name Name Sharmila Doll 2021- No 1{table QD Cyclobenza rine HCl 5 rine HCl 5 11-15 t_at_be madelaine HCl MG MG 00:00: 00:00 dtime_a 5 MG 00 :00 s_neede d} Cyclobenzap Milesbenzap 2021- No 1{table QD Cyclobenza rine HCl 5 rine HCl 5 11-15 t_at_be madelaine HCl MG MG 00:00: 00:00 dtime_a 5 MG 00 :00 s_neede d} Cyclobenzap Milesbenzap 2021- No 1{table QD Cyclobenza rine HCl 5 rine HCl 5 11-15 t_at_be madelaine HCl MG MG 00:00: 00:00 dtime_a 5 MG 00 :00 s_neede d} Lovastatin Lovastatin No QD Lovastatin 20 MG 20 MG 20 MG Elizabeth Elizabeth No 1{table BID Elizabeth Allergy 60 Allergy 60 t} Allergy 60 MG MG MG Phenytoin Phenytoin No 1{capsu QD Phenytoin Sodium Sodium le} Sodium Extended Extended Extended 300 MG 300 MG 300 MG Metformin Metformin No 1{table QD Metformin HCl 1000 MG HCl 1000 MG t_with_ HCl 1000 meals} MG Gabapentin Gabapentin No 2{table BID Gabapentin 600 MG 600 MG t} 600 MG Multivitami Multivitami No 1{table QD Multivitam n - n - t} in - Tamsulosin Tamsulosin No 1{capsu QD Tamsulosin HCl 0.4 MG HCl 0.4 MG le} HCl 0.4 MG Aspirin Aspirin No 1{table QD Aspirin Adult Low Adult Low t} Adult Low Dose 81 MG Dose 81 MG Dose 81 MG Lovastatin Lovastatin No QD Lovastatin 20 MG 20 MG 20 MG Elizabeth Elizabeth No 1{table BID Elizabeth Allergy 60 Allergy 60 t} Allergy 60 MG MG MG Phenytoin Phenytoin No 1{capsu QD Phenytoin Sodium Sodium le} Sodium Extended Extended Extended 300 MG 300 MG 300 MG Lovastatin Lovastatin No Lovastatin 20 MG 20 MG 20 MG Aspirin Aspirin No 1{table QD Aspirin Adult Low Adult Low t} Adult Low Dose 81 MG Dose 81 MG Dose 81 MG Phenytoin Phenytoin No Phenytoin Sodium Sodium Sodium Extended Extended Extended 100 MG 100 MG 100 MG Metformin Metformin No 1{table BID Metformin HCl 1000 MG HCl 1000 MG t_with_ HCl 1000 meals} MG Phenytoin Phenytoin No 1{capsu QD Phenytoin Sodium Sodium le} Sodium Extended Extended Extended 300 MG 300 MG 300 MG Metformin Metformin No 1{table QD Metformin HCl 500 MG HCl 500 MG t_with_ HCl 500 MG meals} Multivitami Multivitami No 1{table QD Multivitam n - n - t} in - Lovastatin Lovastatin No QD Lovastatin 10 MG 10 MG 10 MG Tamsulosin Tamsulosin No 1{capsu QD Tamsulosin HCl 0.4 MG HCl 0.4 MG le} HCl 0.4 MG Elizabeth Elizabeth No 1{table BID Elizabeth Allergy 60 Allergy 60 t} Allergy 60 MG MG MG Gabapentin Gabapentin No 2{table BID Gabapentin 600 MG 600 MG t} 600 MG Lovastatin Lovastatin No Lovastatin 20 MG 20 MG 20 MG Aspirin Aspirin No 1{table QD Aspirin Adult Low Adult Low t} Adult Low Dose 81 MG Dose 81 MG Dose 81 MG Phenytoin Phenytoin No Phenytoin Sodium Sodium Sodium Extended Extended Extended 100 MG 100 MG 100 MG Metformin Metformin No 1{table BID Metformin HCl 1000 MG HCl 1000 MG t_with_ HCl 1000 meals} MG Phenytoin Phenytoin No 1{capsu QD Phenytoin Sodium Sodium le} Sodium Extended Extended Extended 300 MG 300 MG 300 MG Metformin Metformin No 1{table QD Metformin HCl 500 MG HCl 500 MG t_with_ HCl 500 MG meals} Multivitami Multivitami No 1{table QD Multivitam n - n - t} in - Lovastatin Lovastatin No QD Lovastatin 10 MG 10 MG 10 MG Tamsulosin Tamsulosin No 1{capsu QD Tamsulosin HCl 0.4 MG HCl 0.4 MG le} HCl 0.4 MG Elizabeth Elizabeth No 1{table BID Elizabeth Allergy 60 Allergy 60 t} Allergy 60 MG MG MG Gabapentin Gabapentin No 2{table BID Gabapentin 600 MG 600 MG t} 600 MG Lovastatin Lovastatin No Lovastatin 20 MG 20 MG 20 MG Aspirin Aspirin No 1{table QD Aspirin Adult Low Adult Low t} Adult Low Dose 81 MG Dose 81 MG Dose 81 MG Phenytoin Phenytoin No Phenytoin Sodium Sodium Sodium Extended Extended Extended 100 MG 100 MG 100 MG Metformin Metformin No 1{table BID Metformin HCl 1000 MG HCl 1000 MG t_with_ HCl 1000 meals} MG Phenytoin Phenytoin No 1{capsu QD Phenytoin Sodium Sodium le} Sodium Extended Extended Extended 300 MG 300 MG 300 MG Metformin Metformin No 1{table QD Metformin HCl 500 MG HCl 500 MG t_with_ HCl 500 MG meals} Multivitami Multivitami No 1{table QD Multivitam n - n - t} in - Lovastatin Lovastatin No QD Lovastatin 10 MG 10 MG 10 MG Tamsulosin Tamsulosin No 1{capsu QD Tamsulosin HCl 0.4 MG HCl 0.4 MG le} HCl 0.4 MG Elizabeth Elizabeth No 1{table BID Elizabeth Allergy 60 Allergy 60 t} Allergy 60 MG MG MG Gabapentin Gabapentin No 2{table BID Gabapentin 600 MG 600 MG t} 600 MG Lovastatin Lovastatin No Lovastatin 20 MG 20 MG 20 MG Aspirin Aspirin No 1{table QD Aspirin Adult Low Adult Low t} Adult Low Dose 81 MG Dose 81 MG Dose 81 MG Phenytoin Phenytoin No Phenytoin Sodium Sodium Sodium Extended Extended Extended 100 MG 100 MG 100 MG Metformin Metformin No 1{table BID Metformin HCl 1000 MG HCl 1000 MG t_with_ HCl 1000 meals} MG Phenytoin Phenytoin No 1{capsu QD Phenytoin Sodium Sodium le} Sodium Extended Extended Extended 300 MG 300 MG 300 MG Metformin Metformin No 1{table QD Metformin HCl 500 MG HCl 500 MG t_with_ HCl 500 MG meals} Multivitami Multivitami No 1{table QD Multivitam n - n - t} in - Lovastatin Lovastatin No QD Lovastatin 10 MG 10 MG 10 MG Tamsulosin Tamsulosin No 1{capsu QD Tamsulosin HCl 0.4 MG HCl 0.4 MG le} HCl 0.4 MG Elizabeth Elizabeth No 1{table BID Elizabeth Allergy 60 Allergy 60 t} Allergy 60 MG MG MG Gabapentin Gabapentin No 2{table BID Gabapentin 600 MG 600 MG t} 600 MG Aspirin Aspirin No 1{table QD Aspirin Adult Low Adult Low t} Adult Low Dose 81 MG Dose 81 MG Dose 81 MG Phenytoin Phenytoin No 1{capsu QD Phenytoin Sodium Sodium le} Sodium Extended Extended Extended 300 MG 300 MG 300 MG Lovastatin Lovastatin No QD Lovastatin 40 MG 40 MG 40 MG Metformin Metformin No 1{table BID Metformin HCl 1000 MG HCl 1000 MG t_with_ HCl 1000 meals} MG Gabapentin Gabapentin No 2{table BID Gabapentin 600 MG 600 MG t} 600 MG Multivitami Multivitami No 1{table QD Multivitam n - n - t} in - Lovastatin Lovastatin No QD Lovastatin 20 MG 20 MG 20 MG Tamsulosin Tamsulosin No 1{capsu QD Tamsulosin HCl 0.4 MG HCl 0.4 MG le} HCl 0.4 MG Phenytoin Phenytoin No 1{capsu QD Phenytoin Sodium Sodium le} Sodium Extended Extended Extended 300 MG 300 MG 300 MG Gabapentin Gabapentin No 2{table BID Gabapentin 600 MG 600 MG t} 600 MG Metformin Metformin No 1{table QD Metformin HCl 1000 MG HCl 1000 MG t_with_ HCl 1000 meals} MG Aspirin Aspirin No 1{table QD Aspirin Adult Low Adult Low t} Adult Low Dose 81 MG Dose 81 MG Dose 81 MG Multivitami Multivitami No 1{table QD Multivitam n - n - t} in - Lovastatin Lovastatin No QD Lovastatin 20 MG 20 MG 20 MG Tamsulosin Tamsulosin No 1{capsu QD Tamsulosin HCl 0.4 MG HCl 0.4 MG le} HCl 0.4 MG Phenytoin Phenytoin No 1{capsu QD Phenytoin Sodium Sodium le} Sodium Extended Extended Extended 300 MG 300 MG 300 MG Gabapentin Gabapentin No 2{table BID Gabapentin 600 MG 600 MG t} 600 MG Metformin Metformin No 1{table QD Metformin HCl 1000 MG HCl 1000 MG t_with_ HCl 1000 meals} MG Aspirin Aspirin No 1{table QD Aspirin Adult Low Adult Low t} Adult Low Dose 81 MG Dose 81 MG Dose 81 MG Multivitami Multivitami No 1{table QD Multivitam n - n - t} in - Lovastatin Lovastatin No QD Lovastatin 20 MG 20 MG 20 MG Tamsulosin Tamsulosin No 1{capsu QD Tamsulosin HCl 0.4 MG HCl 0.4 MG le} HCl 0.4 MG Phenytoin Phenytoin No 1{capsu QD Phenytoin Sodium Sodium le} Sodium Extended Extended Extended 300 MG 300 MG 300 MG Gabapentin Gabapentin No 2{table BID Gabapentin 600 MG 600 MG t} 600 MG Metformin Metformin No 1{table QD Metformin HCl 1000 MG HCl 1000 MG t_with_ HCl 1000 meals} MG Aspirin Aspirin No 1{table QD Aspirin Adult Low Adult Low t} Adult Low Dose 81 MG Dose 81 MG Dose 81 MG Multivitami Multivitami No 1{table QD Multivitam n - n - t} in - Metformin Metformin No 1{table QD Metformin HCl 1000 MG HCl 1000 MG t_with_ HCl 1000 meals} MG Gabapentin Gabapentin No 2{table BID Gabapentin 600 MG 600 MG t} 600 MG Multivitami Multivitami No 1{table QD Multivitam n - n - t} in - Tamsulosin Tamsulosin No 1{capsu QD Tamsulosin HCl 0.4 MG HCl 0.4 MG le} HCl 0.4 MG Aspirin Aspirin No 1{table QD Aspirin Adult Low Adult Low t} Adult Low Dose 81 MG Dose 81 MG Dose 81 MG Lovastatin Lovastatin No QD Lovastatin 20 MG 20 MG 20 MG Elizabeth Elizabteh No 1{table BID Elizabeth Allergy 60 Allergy 60 t} Allergy 60 MG MG MG Phenytoin Phenytoin No 1{capsu QD Phenytoin Sodium Sodium le} Sodium Extended Extended Extended 300 MG 300 MG 300 MG Metformin Metformin No 1{table QD Metformin HCl 1000 MG HCl 1000 MG t_with_ HCl 1000 meals} MG Gabapentin Gabapentin No 2{table BID Gabapentin 600 MG 600 MG t} 600 MG Multivitami Multivitami No 1{table QD Multivitam n - n - t} in - Tamsulosin Tamsulosin No 1{capsu QD Tamsulosin HCl 0.4 MG HCl 0.4 MG le} HCl 0.4 MG Aspirin Aspirin No 1{table QD Aspirin Adult Low Adult Low t} Adult Low Dose 81 MG Dose 81 MG Dose 81 MG Tamsulosin Tamsulosin 2021- No 1{capsu QD Tamsulosin HCl 0.4 MG HCl 0.4 MG 08-31 le} HCl 0.4 MG 00:00 :00 Immunizations Ordered Immunization Filled Immunization Date Status Commen ts Source Name Name Flucelvax - single Flucelvax - single 2022-01-14 Completed [facility] dose syringe dose syringe 11:17:00 - [facility] Flucelvax - single Flucelvax - single 2022-01-14 Completed [facility] dose syringe dose syringe 11:17:00 - [facility] Flucelvax - single Flucelvax - single 2022-01-14 Completed [facility] dose syringe dose syringe 11:17:00 - [facility] Flucelvax - single Flucelvax - single 2022-01-14 Completed [facility] dose syringe dose syringe 11:17:00 - [facility] Prevnar 13 (PCV13) Prevnar 13 (PCV13) 2021-01-27 Completed [facility] 10:33:00 - [facility] Prevnar 13 (PCV13) Prevnar 13 (PCV13) 2021-01-27 Completed [facility] 10:33:00 - [facility] Prevnar 13 (PCV13) Prevnar 13 (PCV13) 2021-01-27 Completed [facility] 10:33:00 - [facility] Prevnar 13 (PCV13) Prevnar 13 (PCV13) 2021-01-27 Completed [facility] 10:33:00 - [facility] Prevnar 13 (PCV13) Prevnar 13 (PCV13) 2021-01-27 Completed [facility] 10:33:00 - [facility] Prevnar 13 (PCV13) Prevnar 13 (PCV13) 2021-01-27 Completed [facility] 10:33:00 - [facility] Prevnar 13 (PCV13) Prevnar 13 (PCV13) 2021-01-27 Completed [facility] 10:33:00 - [facility] Prevnar 13 (PCV13) Prevnar 13 (PCV13) 2021-01-27 Completed [facility] 10:33:00 - [facility] Prevnar 13 (PCV13) Prevnar 13 (PCV13) 2021-01-27 Completed [facility] 10:33:00 - [facility] Prevnar 13 (PCV13) Prevnar 13 (PCV13) 2021-01-27 Completed [facility] 10:33:00 - [facility] Prevnar 13 (PCV13) Prevnar 13 (PCV13) 2021-01-27 Completed [facility] 10[facility]33:00 - [facility] FluAD FluAD 2021-01-27 Completed [facility] 10:32:00 - [facility] FluAD FluAD 2021-01-27 Completed [facility] 10:32:00 - [facility] FluAD FluAD 2021-01-27 Completed [facility] 10[facility]32:00 - [facility] FluAD FluAD 2021-01-27 Completed [facility] 10:32:00 - [facility] FluAD FluAD 2021-01-27 Completed [facility] 10:32:00 - [facility] FluAD FluAD 2021-01-27 Completed [facility] 10[facility]32:00 - [facility] FluAD FluAD 2021-01-27 Completed [facility] 10:32:00 - [facility] FluAD FluAD 2021-01-27 Completed [facility] 10:32:00 - [facility] FluAD FluAD 2021-01-27 Completed [facility] 10:32:00 - [facility] FluAD FluAD 2021-01-27 Completed [facility] 10:32:00 - [facility] FluAD FluAD 2021-01-27 Completed [facility] 10:32:00 - [facility] Vital Signs Vital Name Observation Time Observation Value Comments Source height 2022-01-14 10:50:00 70.5 [in_i] [facility] weight 2022-01-14 10:50:00 186 [lb_av] [facility] temperature 2022-01-14 10:50:00 97.1 [degF] [facility] bmi 2022-01-14 10:50:00 26.31 kg/m2 [facility] oximetry 2022-01-14 10:50:00 97 % [facility] respiratory rate 2022-01-14 10:50:00 16 /min Comm on [facility] - [facility] blood pressure 2022-01-14 10:50:00 138 mm[Hg] Common [facility] - systolic [facility] blood pressure 2022-01-14 10:50:00 73 mm[Hg] Common [facility] - diastolic [facility] height 2021-11-15 11:20:00 70.5 [in_i] [facility] weight 2021-11-15 11:20:00 186 [lb_av] Common [facility] temperature 2021-11-15 11:20:00 97.5 [degF] Common [facility] bmi 2021-11-15 11:20:00 26.31 kg/m2 [facility] oximetry 2021-11-15 11:20:00 97 % Common [facility] respiratory rate 2021-11-15 11:20:00 16 /min Comm on [facility] blood pressure 2021-11-15 11:20:00 139 mm[Hg] Common [facility] - systolic [facility] blood pressure 2021-11-15 11:20:00 67 mm[Hg] Common [facility] - diastolic [facility] height 2021-10-10 10:40:00 70.5 [in_i] Common [facility] weight 2021-10-10 10:40:00 186 [lb_av] [facility] temperature 2021-10-10 10:40:00 97.6 [degF] Common [facility] bmi 2021-10-10 10:40:00 26.31 kg/m2 [facility] oximetry 2021-10-10 10:40:00 96 % [facility] respiratory rate 2021-10-10 10:40:00 16 /min Comm on [facility] blood pressure 2021-10-10 10:40:00 127 mm[Hg] Common [facility] - systolic [facility] blood pressure 2021-10-10 10:40:00 58 mm[Hg] Common [facility] - diastolic [facility] height 2021-10-10 10:30:00 70.5 [in_i] Common [facility] weight 2021-10-10 10:30:00 186 [lb_av] [facility] temperature 2021-10-10 10:30:00 97.6 [degF] Common [facility] bmi 2021-10-10 10:30:00 26.31 kg/m2 [facility] oximetry 2021-10-10 10:30:00 96 % [facility] respiratory rate 2021-10-10 10:30:00 16 /min Comm on [facility] blood pressure 2021-10-10 10:30:00 127 mm[Hg] Common [facility] - systolic [facility] blood pressure 2021-10-10 10:30:00 58 mm[Hg] Common [facility] - diastolic [facility] height 2021-08-29 10:00:00 70.5 [in_i] [facility] weight 2021-08-29 10:00:00 186.0 [lb_av] [facility] temperature 2021-08-29 10:00:00 98.6 [degF] [facility] bmi 2021-08-29 10:00:00 26.31 kg/m2 [facility] oximetry 2021-08-29 10:00:00 98 % [facility] respiratory rate 2021-08-29 10:00:00 17 /min Comm on [facility] blood pressure 2021-08-29 10:00:00 140 mm[Hg] [facility] systolic [facility] blood pressure 2021-08-29 10:00:00 75 mm[Hg] [facility] diastolic [facility] Procedures This patient has no known procedures. Encounters Start End Encounter Admission Attending Care Care Encounter Source Date/Time Date/Time Type Type Clinicians Facility Department ID 2022-01-10 Outpatient Cortes[facility] [id number] [facility] 10:18:[id number] [facility] 2021-09-25 Outpatient Cortes, STDANNIELC [facility] [id number] [facility] 09:44:[address] [facility] 2021-08-29 Outpatient Cortes, STLC [facility] [id number] [facility] 09:40:04 Count Includes [facility] [id number] [facility] 2022-01-14 2022-01-14 OFFICE STLMLC STLMLC [id number] Co mmon 00:00:00 00:00:00 VISIT [facility] PT - CHI LEVEL 4 [facility] 2022-01-14 2022-01-14 (TEL) STLMLC STLMLC [id number] Co mmon 00:00:00 00:00:00 Spirit [facility] 2021-11-15 2021-11-15 (TEL) STLMLC STLMLC [id number] Co mmon 00:00:00 00:00:00 [facility] 2021-11-15 2021-11-15 OFFICE STLMLC STLMLC [id number] Co mmon 00:00:00 00:00:00 VISIT [facility] PT - CHI LEVEL 4 [facility] 2021-11-12 2021-11-12 (TEL) STLMLC STLMLC [id number] Co mmon 00:00:00 00:00:00 [facility] 2021-10-10 2021-10-10 SUB ANNUAL STLMLC STLMLC [id number] Common 00:00:00 00:00:00 MCR [facility] WELLNESS - CHI VISIT [facility] 2021-10-10 2021-10-10 OFFICE STLMLC STLMLC [id number] Co mmon 00:00:00 00:00:00 VISIT [facility] PT - CHI LEVEL 4 [facility] 2021-10-10 2021-10-10 (TEL) STLMLC STLMLC [id number] Co mmon 00:00:00 00:00:00 [facility] 2021-08-29 2021-08-29 OFFICE STLMLC STLMLC [id number] Co mmon 00:00:00 00:00:00 VISIT NEW [facility] PT LEVEL [address] [place] [address] Results This patient has no known results.
[2022-03-13 12:55] LABS: Absolute Lymphocytes (CBC) 0.2 K/uL (0.7-4.9); Hematocrit 39.3 % (39.6-49.0); Lymphocytes % 3.8 % (15.3-44.8); MCV 94.7 fL (80-100); RBC Red Blood Cell Count 4.15 M/uL (4.33-5.43)
--- NOTE | 2022-03-13 12:55 | RAD REPORT ---
EXAM DESCRIPTION: RAD - Chest Single View - 03/13/2022 12:49 pm CLINICAL HISTORY: COUGH COMPARISON: Chest Single View dated 08/18/2020; Chest Single View dated 08/17/2020; Chest Single View dated 05/31/2019; Chest Pa And Lat (2 Views) dated 04/16/2018 FINDINGS: Lines: None. Lungs: No evidence of edema or pneumonia. Pleural: No significant pleural effusions or pneumothorax. Cardiac: The heart size is within normal limits. Mediastinum: Within normal limits. Bones: No acute fractures. Other: None IMPRESSION: No acute cardiopulmonary disease.
[2022-03-13 13:18] LABS: ALT/SGPT 21 U/L (16-61); AST/SGOT 19 U/L (15-37); Albumin 3.6 g/dL (3.4-5.0); Alkaline Phosphatase 159 U/L (45-117); BUN Blood Urea Nitrogen 14 mg/dL (7-18); Bicarbonate 29 mmol/L (21-32); Bilirubin Total 0.2 mg/dL (0.2-1.0); Glomerular Filtration Rate 88 ml/min (=/>90); Glucose Level 122 mg/dL (74-106); NT PRO-BNP 114 pg/mL (<450); Potassium 4.2 mmol/L (3.5-5.1); Protein, Total 7.8 g/dL (6.4-8.2); Sodium Level 134 mmol/L (136-145); Troponin High Sensitivity 7.3 pg/mL (<58.9)
[2022-03-13 13:28] LABS: Bilirubin Direct < 0.1 mg/dL (0-0.2)
[2022-03-13 13:39] LABS: SARS-COV-2 RT PCR POSITIVE (NEGATIVE)
[2022-03-13] MEDS ORDERED: NA CHLORIDE 0.9% 1,000 ML ONE (14:22)
--- NOTE | 2022-03-13 14:46 | EDPHYS ---
Physician Documentation [facility] Name: Mango Giron Age: 86 yrs Sex: Male : 1935 Arrival Date: 03/13/2022 Time: 12:08 Bed 23 Private MD: ED Physician Serenity Cortes HPI: 03/13 12:19 This 86 yrs old Male presents to ER via EMS with complaints of General Weakness, cough. sp3 12:19 86-year-old male with history of diabetes, seizure activity, hypertension presents with sp3 chief complaint cough since yesterday and altered mental status and generalized weakness times the last several hours. Patient is brought in by his daughter who states that he is confused and asking about his . The last time this occurred, she states that he had pneumonia with sepsis. Patient has no complaints other than cough and feeling weak. No objective fever identified. ROS also negative for headache, chest pain, diaphoresis, weight loss, abdominal pain, nausea, vomiting, diarrhea, focal weakness, syncope, rash, known sick contacts, travel history or any other symptoms or aspects at this time.. Historical: - Allergies: 12:14 Codeine; em6 - Home Meds: 12:14 Elizabeth Oral [Active]; tamsulosin 0.4 mg Oral cp24 1 cap once daily [Active]; Phenytoin em6 Oral [Active]; multivitamin Oral cap [Active]; metformin 1,000 mg Oral TG24 1 tab 2 times per day [Active]; lisinopril 5 mg Oral tab [Active]; gabapentin 600 mg Oral tab [Active]; fluticasone [Active]; atorvastatin Oral [Active]; aspirin 81 mg Oral chew 1 tab once daily [Active]; - PMHx: 12:14 Diabetes - NIDDM; enlarged prostate; Hypertension; Polio; Seizures; em6 - Immunization history:: Adult Immunizations up to date. - Social history:: Smoking status: Patient denies any tobacco usage or history of. ROS: 12:20 Eyes: Negative for injury, pain, redness, and discharge, ENT: Negative for injury, sp3 pain, and discharge, Neck: Negative for injury, pain, and swelling, Cardiovascular: Negative for chest pain, palpitations, and edema, Abdomen/GI: Negative for abdominal pain, nausea, vomiting, diarrhea, and constipation, Back: Negative for injury and pain, MS/Extremity: Negative for injury and deformity, Skin: Negative for injury, rash, and discoloration, Psych: Negative for depression, anxiety, suicide ideation, homicidal ideation, and hallucinations, Allergy/Immunology: Negative for hives, rash, and allergies, Endocrine: Negative for neck swelling, polydipsia, polyuria, polyphagia, and marked weight changes. 12:20 All other systems are negative. Exam: 12:20 Constitutional: This is a well developed, well nourished patient who is awake, alert, sp3 and in no acute distress. Head/Face: Normocephalic, atraumatic. Eyes: Pupils equal round and reactive to light, extra-ocular motions intact. Lids and lashes normal. Conjunctiva and sclera are non-icteric and not injected. Cornea within normal limits. Periorbital areas with no swelling, redness, or edema. ENT: Nares patent. No nasal discharge, no septal abnormalities noted. External auditory canals are clear. Oropharynx with no redness, swelling, or masses, exudates, or evidence of obstruction, uvula midline. Mucous membranes moist. Neck: Trachea midline, no thyromegaly or masses palpated, and no cervical lymphadenopathy. Supple, full range of motion without nuchal rigidity, or vertebral point tenderness. No Meningismus. Chest/axilla: Normal chest wall appearance and motion. Nontender with no deformity. No lesions are appreciated. Cardiovascular: Regular rate and rhythm with a normal S1 and S2. No gallops, murmurs, or rubs. Normal PMI, no JVD. No pulse deficits. Respiratory: Lungs have equal breath sounds bilaterally, clear to auscultation and percussion. No rales, rhonchi or wheezes noted. No increased work of breathing, no retractions or nasal flaring. Back: No spinal tenderness. No costovertebral tenderness. Full range of motion. Skin: Warm, dry with normal turgor. Normal color with no rashes, no lesions, and no evidence of cellulitis. MS/ Extremity: Pulses equal, no cyanosis. Neurovascular intact. Full, normal range of motion. Neuro: Awake and alert, GCS 15, oriented to person, place, time, and situation. Cranial nerves II-XII grossly intact. Motor strength 5/5 in all extremities. Sensory grossly intact. Cerebellar exam normal. Normal gait. Psych: Awake, alert, with orientation to person, place and time. Behavior, mood, and affect are within normal limits. 12:20 Respiratory: Active cough noted.. 12:28 ECG was reviewed by the Attending Physician. EKG demonstrates sinus tachycardia at a sp3 rate of approximately 100 bpm with normal intervals, normal axis, normal QRS, nonspecific changes in the ST/T segments without evidence of any acute ischemia. Vital Signs: 12:11 BP 148 / 80; Pulse 101; Resp 20; Temp 98.7; Pulse Ox 99% on R/A; Weight 77.11 kg; em6 Height 5 ft. 10 in. (177.80 cm); Pain 0/10; 13:45 BP 135 / 69; Pulse 104; Resp 18; Pulse Ox 97% on R/A; em6 14:30 BP 123 / 74; Pulse 103; Resp 18; Pulse Ox 98% on R/A; em6 12:11 Body Mass Index 24.39 (77.11 kg, 177.80 cm) em6 MDM: 12:12 Patient medically screened. sp3 12:21 Data reviewed: vital signs, nurses notes, EMS record, lab test result(s), EKG, sp3 radiologic studies. ED course: 86-year-old male with multiple medical problems now with cough and confusion. Differential diagnosis includes pneumonia, upper respiratory infection, bronchitis, COVID-19, influenza, viral illness, metabolic derangement, among others. Clinically I am not highly suspicious for acute coronary syndrome, septic shock, pulmonary embolism, vascular dissection or other vascular pathology, CVA/TIA spectrum, or any other critical findings. Work-up will include EKG, chest x-ray, laboratory values, swabs for infection, and general observation. Disposition to be based on work-up and patient course.. 14:44 ED course: Heart rate is now in the 90s. Vital signs otherwise normal. Will discharge sp3 patient home with general precautions and COVID-19 instructions and follow-up with PCP.. 03/13 12:18 Order name: Basic Metabolic Panel; Complete Time: 14:03 sp3 03/13 12:18 Order name: CBC with Diff; Complete Time: 13:17 sp3 03/13 12:18 Order name: LFT's; Complete Time: 14:03 sp3 03/13 12:18 Order name: NT PRO-BNP; Complete Time: 14:03 sp3 03/13 12:18 Order name: Troponin HS; Complete Time: 14:03 sp3 03/13 12:18 Order name: Strep; Complete Time: 13:17 sp3 03/13 12:18 Order name: XRAY Chest (1 view); Complete Time: 13:17 sp3 03/13 12:18 Order name: EKG; Complete Time: 12:19 sp3 03/13 12:18 Order name: Cardiac monitoring; Complete Time: 12:27 sp3 03/13 12:18 Order name: EKG - Nurse/Tech; Complete Time: 12:27 sp3 03/13 12:18 Order name: IV Saline Lock; Complete Time: 12:43 sp3 03/13 12:18 Order name: COVID-19/FLU A+B; Complete Time: 14:03 sp3 03/13 13:06 Order name: Throat Culture EDVT 03/13 12:18 Order name: Labs collected and sent; Complete Time: 12:43 sp3 03/13 12:18 Order name: O2 Per Protocol; Complete Time: 12:27 sp3 03/13 12:18 Order name: O2 Sat Monitoring; Complete Time: 12:27 sp3 Administered Medications: 14:18 Drug: NS 0.9% 1000 ml Route: IV; Rate: 1 bolus; Site: left antecubital; em6 15:02 Follow up: Response: No adverse reaction; IV Status: Completed infusion; IV Intake: em6 1000ml Disposition Summary: 03/13/22 14:45 Discharge Ordered Location: Home sp3 Condition: Stable sp3 Diagnosis - COVID-19 INFECTION sp3 Discharge Instructions: - Discharge Summary Sheet sp3 - COVID-19 sp3 Forms: - Medication Reconciliation Form sp3 - Thank You Letter sp3 - Antibiotic Education sp3 - Prescription Opioid Use sp3 Signatures: Dispatcher [employer] EDSerenity Sigala MD MD sp3 Sara Yarbrough RN RN em6
--- NOTE | 2022-03-13 14:46 | ER ---
Nurse's Notes [facility] Name: Mango Giron Age: 86 yrs Sex: Male : 1935 Arrival Date: 03/13/2022 Time: 12:08 Bed 23 Private MD: Diagnosis: COVID-19 INFECTION Presentation: 03/13 12:11 Chief complaint: EMS states: " the daughter was exposed to covid and she wanted to get em6 his father tested, because he's been coughing and feeling weak. he's usually able to get up, but lately he's not even able to get up. initially she wanted to take him to [facility] to get him tested, but decided to bring him to the ER.". Coronavirus screen: Client denies travel out of the [place] in the last 14 days. Client presents with at least one sign or symptom that may indicate coronavirus-19. Standard/surgical mask placed on the client. Ebola Screen: Patient negative for fever greater than or equal to 101.5 degrees Fahrenheit, and additional compatible Ebola Virus Disease symptoms. Initial Sepsis Screen: Does the patient meet any 2 criteria? No. Patient's initial sepsis screen is negative. Does the patient have a suspected source of infection? No. Patient's initial sepsis screen is negative. Risk Assessment: Do you want to hurt yourself or someone else? Patient reports no desire to harm self or others. Onset of symptoms was March 11, 2022. 12:11 Acuity: BARRON 3 em6 12:11 Method Of Arrival: EMS: [facility] em6 Historical: - Allergies: 12:14 Codeine; em6 - Home Meds: 12:14 Elizabeth Oral [Active]; tamsulosin 0.4 mg Oral cp24 1 cap once daily [Active]; Phenytoin em6 Oral [Active]; multivitamin Oral cap [Active]; metformin 1,000 mg Oral TG24 1 tab 2 times per day [Active]; lisinopril 5 mg Oral tab [Active]; gabapentin 600 mg Oral tab [Active]; fluticasone [Active]; atorvastatin Oral [Active]; aspirin 81 mg Oral chew 1 tab once daily [Active]; - PMHx: 12:14 Diabetes - NIDDM; enlarged prostate; Hypertension; Polio; Seizures; em6 - Immunization history:: Adult Immunizations up to date. - Social history:: Smoking status: Patient denies any tobacco usage or history of. Screenin:10 [facility] ED Fall Risk Assessment (Adult) History of falling in the last 3 months, em6 including since admission No falls in past 3 months (0 pts) Confusion or Disorientation No (0 pts) Intoxicated or Sedated No (0 pts) Impaired Gait Yes (1 pt) Mobility Assist Device Used Yes (1 pt) Altered Elimination No (0 pt) Score/Fall Risk Level 0 - 2 = Low Risk Oriented to surroundings, Maintained a safe environment, Educated pt \\T\\ family on fall prevention, incl call for assistance when getting out of bed, Assessed \\T\\ reinforced patient's understanding of fall precautions, Provided non-skid footwear, Hourly rounding (assess needs \\T\\ fall precautionary measures) done, Used ambulatory aids as needed (educated on \\T\\ assisted with), Used gait belt as appropriate. Abuse screen: Denies threats or abuse. Nutritional screening: No deficits noted. Tuberculosis screening: No symptoms or risk factors identified. Fall Risk Total Bishop Fall Scale indicates No Risk (0-24 pts). Assessment: 12:09 General: Appears in no apparent distress. Behavior is cooperative. Pain: Denies pain. em6 Neuro: Level of Consciousness is awake, alert, obeys commands, Oriented to person, place, time, situation. Cardiovascular: Heart tones present Capillary refill < 3 seconds Patient's skin is warm and dry. Respiratory: Reports cough that is productive, Airway is patent Respiratory effort is even, unlabored, Respiratory pattern is regular, symmetrical. GI: Abdomen is non-distended, Bowel sounds present X 4 quads. Abd is soft and non tender X 4 quads. Reports diarrhea, nausea. : No signs and/or symptoms were reported regarding the genitourinary system. EENT: No signs and/or symptoms were reported regarding the EENT system. Derm: No signs and/or symptoms reported regarding the dermatologic system. Musculoskeletal: Circulation, motion, and sensation intact. 13:10 Reassessment: Patient appears in no apparent distress at this time. No changes from em6 previously documented assessment. Patient and/or family updated on plan of care and expected duration. Pain level reassessed. Patient is alert, oriented x 3, equal unlabored respirations, skin warm/dry/pink. 14:10 Reassessment: Patient appears in no apparent distress at this time. No changes from em6 previously documented assessment. Patient and/or family updated on plan of care and expected duration. Pain level reassessed. Patient is alert, oriented x 3, equal unlabored respirations, skin warm/dry/pink. Vital Signs: 12:11 BP 148 / 80; Pulse 101; Resp 20; Temp 98.7; Pulse Ox 99% on R/A; Weight 77.11 kg; em6 Height 5 ft. 10 in. (177.80 cm); Pain 0/10; 13:45 BP 135 / 69; Pulse 104; Resp 18; Pulse Ox 97% on R/A; em6 14:30 BP 123 / 74; Pulse 103; Resp 18; Pulse Ox 98% on R/A; em6 12:11 Body Mass Index 24.39 (77.11 kg, 177.80 cm) em6 ED Course: 12:08 Patient arrived in ED. em1 12:09 Sara Yarbrough, RN is Primary Nurse. em6 12:09 Serenity Cortes MD is Attending Physician. sp3 12:14 Triage completed. em6 12:14 Arm band placed on. em6 12:15 Placed in gown. Bed in low position. Call light in reach. Side rails up X 1. Adult w/ em6 patient. Pulse ox on. NIBP on. Warm blanket given. 12:42 Inserted saline lock: 22 gauge in left antecubital area, using aseptic technique. Blood em6 collected. 12:43 COVID-19/FLU A+B Sent. em6 12:43 Strep Sent. em6 12:51 XRAY Chest (1 view) In Process Unspecified. EDMS 15:01 No provider procedures requiring assistance completed. IV discontinued, intact, em6 bleeding controlled, No redness/swelling at site. Pressure dressing applied. Administered Medications: 14:18 Drug: NS 0.9% 1000 ml Route: IV; Rate: 1 bolus; Site: left antecubital; em6 15:02 Follow up: Response: No adverse reaction; IV Status: Completed infusion; IV Intake: em6 1000ml Medication: 15:02 VIS not applicable for this client. em6 Intake: 15:02 IV: 1000ml; Total: 1000ml. em6 Outcome: 14:45 Discharge ordered by MD. robertson 15:01 Discharged to home via wheelchair, with family. em6 15:01 Condition: stable 15:01 Discharge instructions given to patient, small animal caretaker, Instructed on discharge instructions, follow up and referral plans. Demonstrated understanding of instructions, follow-up care. 15:02 Patient left the ED. em6 Signatures: Dispatcher [employer] Joey Randle em1 Serenity Cortes MD MD sp3 Sara Yarbrough, RN RN em6
[2022-03-13 15:11] VITALS: TEMP 98.7
[2022-03-13 15:26] VITALS: BP 123/74; O2SAT 98
--- NOTE | 2022-03-14 12:54 | EKG ---
Test Date: 2022-03-13 Test Time: 12:24:13 [place] Knitter: MEASUREMENT RESULTS: Intervals: Rate: 103 [place]: 128 QRSD: 82 QT: 316 QTc: 413 [place]: P: 35 [place]: 128 QRS: 61 T: 43 INTERPRETIVE STATEMENTS: Sinus tachycardia Otherwise normal ECG Compared to ECG 08/17/2020 12:08:48 Sinus rhythm no longer present ST (T wave) deviation no longer present Electronically Signed On 03-14-22 12:52:02 PHYSICIAN/ALLERGY/IMMUNOLOGY by Edgar Ferreira
== END 2022-03-13 15:02 | disposition home or self-care (01) ==
LOC: ER 12:00
DX: U07.1 COVID-19 (principal); E11.9 Type 2 diabetes mellitus without complications; I10 Essential (primary) hypertension; Z88.5 Allergy status to narcotic agent; Z79.82 Long term (current) use of aspirin
CPT/HCPCS: 93005; 87070; 85025; 80048; 36415; 80076; 87081; 84484; 83880; 0240U; 71045; 96360; 99284; J7030

== ENCOUNTER 2022-07-16 09:57 | Inpatient (IN) | payer OTHER, MEDICARE ==
--- OUTSIDE RECORDS SUMMARY | 2022-07-16 10:04 | XMS REPORT | Continuity of Care Document ---
:1935 Author Organization [facility] t Address 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 Social History Social Habit Start Date Stop Date Quantity Comments Source History of Tobacco Use Co mmon [facility] Sex Assigned At Com mon [facility] Smoking Status Start Date Stop Date Source Never Smoker Common [facility] Medications Ordered Filled Start Stop Current Ordering Indication Dosage Frequency Signature Comments Components Source Medication Medication Date Date Medication? Clinician (SIG) Name Name predniSONE predniSONE 2021-03- No QD predniSONE 20 MG 20 MG 2-16 12-21 20 MG 00:00: 00:00 00 :00 predniSONE predniSONE 2021-03- No QD predniSONE 20 MG 20 MG 2-16 12-21 20 MG 00:00: 00:00 00 :00 Cyclobenzap Cyclobenzap 2021- No 1{table QD Cyclobenza rine HCl 5 rine HCl 5 11-15 t_at_be madelaine HCl MG MG 00:00: 00:00 dtime_a 5 MG 00 :00 s_neede d} Cyclobenzap Cyclobenzap 2021- No 1{table QD Cyclobenza rine HCl 5 rine HCl 5 11-15 t_at_be madelaine HCl MG MG 00:00: 00:00 dtime_a 5 MG 00 :00 s_neede d} Cyclobenzap Cyclobenzap 2021- No 1{table QD Cyclobenza rine HCl 5 rine HCl 5 11-15 t_at_be madelaine HCl MG MG 00:00: 00:00 dtime_a 5 MG 00 :00 s_neede d} Metformin Metformin No 1{table QD Metformin HCl [...] 600 MG 600 MG t} 600 MG Phenytoin Phenytoin No Phenytoin Sodium Sodium Sodium Extended Extended Extended 100 MG 100 MG 100 MG Metformin Metformin No 1{table BID Metformin HCl 1000 MG HCl 1000 MG t_with_ HCl 1000 meals} MG Tamsulosin Tamsulosin No 1{capsu QD Tamsulosin HCl 0.4 MG HCl 0.4 MG le} HCl 0.4 MG Multivitami Multivitami No 1{table QD Multivitam n - n - t} in - Phenytoin Phenytoin No 1{capsu QD Phenytoin Sodium Sodium le} Sodium Extended Extended Extended 300 MG 300 MG 300 MG Benzonatate Benzonatate No 1{capsu TID Benzonatat 200 MG 200 MG le} e 200 MG Azithromyci Azithromyci No QD Azithromyc n 250 MG n 250 MG in 250 MG Lovastatin Lovastatin No Lovastatin 20 MG 20 MG 20 MG Gabapentin Gabapentin No 2{table BID Gabapentin 600 MG 600 MG t} 600 MG Lovastatin Lovastatin No QD Lovastatin 10 MG 10 MG 10 MG Aspirin Aspirin No 1{table QD Aspirin Adult Low Adult Low t} Adult Low Dose 81 MG Dose 81 MG Dose 81 MG Elizabeth Elizabeth No 1{table BID Elizabeth Allergy 60 Allergy 60 t} Allergy 60 MG MG MG Metformin Metformin No 1{table QD Metformin HCl 500 MG HCl 500 MG t_with_ HCl 500 MG meals} Albuterol Albuterol No 2{puff_ 6xD Albuterol Sulfate HFA Sulfate HFA as_need Sulfate 108 (90 108 (90 ed} HFA 108 Base) Base) (90 Base) MCG/ACT MCG/ACT MCG/ACT Phenytoin Phenytoin No Phenytoin Sodium Sodium Sodium Extended Extended Extended 100 MG 100 MG 100 MG Metformin Metformin No 1{table BID Metformin HCl 1000 MG HCl 1000 MG t_with_ HCl 1000 meals} MG Tamsulosin Tamsulosin No 1{capsu QD Tamsulosin HCl 0.4 MG HCl 0.4 MG le} HCl 0.4 MG Multivitami Multivitami No 1{table QD Multivitam n - n - t} in - Phenytoin Phenytoin No 1{capsu QD Phenytoin Sodium Sodium le} Sodium Extended Extended Extended 300 MG 300 MG 300 MG Benzonatate Benzonatate No 1{capsu TID Benzonatat 200 MG 200 MG le} e 200 MG Azithromyci Azithromyci No QD Azithromyc n 250 MG n 250 MG in 250 MG Lovastatin Lovastatin No Lovastatin 20 MG 20 MG 20 MG Gabapentin Gabapentin No 2{table BID Gabapentin 600 MG 600 MG t} 600 MG Lovastatin Lovastatin No QD Lovastatin 10 MG 10 MG 10 MG Aspirin Aspirin No 1{table QD Aspirin Adult Low Adult Low t} Adult Low Dose 81 MG Dose 81 MG Dose 81 MG Elizabeth Elizabeth No 1{table BID Elizabeth Allergy 60 Allergy 60 t} Allergy 60 MG MG MG Metformin Metformin No 1{table QD Metformin HCl 500 MG HCl 500 MG t_with_ HCl 500 MG meals} Albuterol Albuterol No 2{puff_ 6xD Albuterol Sulfate HFA Sulfate HFA as_need Sulfate 108 (90 108 (90 ed} HFA 108 Base) Base) (90 Base) MCG/ACT MCG/ACT MCG/ACT Metformin Metformin No 1{table BID Metformin HCl 1000 MG HCl 1000 MG t_with_ HCl 1000 meals} MG Tamsulosin Tamsulosin No 1{capsu QD Tamsulosin HCl 0.4 MG HCl 0.4 MG le} HCl 0.4 MG Multivitami Multivitami No 1{table QD Multivitam n - n - t} in - Phenytoin Phenytoin No 1{capsu QD Phenytoin Sodium Sodium le} Sodium Extended Extended Extended 300 MG 300 MG 300 MG Benzonatate Benzonatate No 1{capsu TID Benzonatat 200 MG 200 MG le} e 200 MG Azithromyci Azithromyci No QD Azithromyc n 250 MG n 250 MG in 250 MG Lovastatin Lovastatin No Lovastatin 20 MG 20 MG 20 MG Gabapentin Gabapentin No 2{table BID Gabapentin 600 MG 600 MG t} 600 MG Albuterol Albuterol No 2{puff_ 6xD Albuterol Sulfate HFA Sulfate HFA as_need Sulfate 108 (90 108 (90 ed} HFA 108 Base) Base) (90 Base) MCG/ACT MCG/ACT MCG/ACT Lovastatin Lovastatin No QD Lovastatin 10 MG 10 MG 10 MG Aspirin Aspirin No 1{table QD Aspirin Adult Low Adult Low t} Adult Low Dose 81 MG Dose 81 MG Dose 81 MG Elizabeth Elizabeth No 1{table BID Elizabeth Allergy 60 Allergy 60 t} Allergy 60 MG MG MG Metformin Metformin No 1{table QD Metformin HCl 500 MG HCl 500 MG t_with_ HCl 500 MG meals} Phenytoin Phenytoin No Phenytoin Sodium Sodium Sodium Extended Extended Extended 100 MG 100 MG 100 MG Lovastatin Lovastatin No Lovastatin 20 MG [...] n - t} in - Tamsulosin Tamsulosin 2021- No 1{capsu QD Tamsulosin HCl 0.4 MG HCl 0.4 MG 08-31 le} HCl 0.4 MG 00:00 :00 Immunizations Ordered Immunization Filled Immunization Date Status Commen ts Source Name Name Flucelvax - single Flucelvax - single 2022-01-14 Completed [facility] dose syringe dose syringe 11:17:00 - [facility] Flucelvax - single Flucelvax - single 2022-01-14 Completed [facility] dose syringe dose syringe 11:17:00 - [facility] Flucelvax - single Flucelvax - single 2022-01-14 Completed [facility] dose syringe dose syringe 11:17:00 - [facility] Flucelvax - single Flucelvax - single 2022-01-14 Completed [facility] dose syringe dose syringe 11:17:00 - [facility] Flucelvax - single Flucelvax - single 2022-01-14 Completed [facility] dose syringe dose syringe 11:17:00 - [facility] Flucelvax - single Flucelvax - single 2022-01-14 Completed [facility] dose syringe dose syringe 11:17:00 - [facility] Flucelvax - single Flucelvax - single 2022-01-14 Completed [facility] dose syringe dose syringe 11:17:00 - [facility] Prevnar 13 (PCV13) Prevnar 13 (PCV13) 2021-01-27 Completed [facility] 10:33:00 - [facility] Prevnar 13 (PCV13) Prevnar 13 (PCV13) 2021-01-27 Completed [facility] 10:33:00 - [facility] Prevnar 13 (PCV13) Prevnar 13 (PCV13) 2021-01-27 Completed [facility] 10:33:00 - [facility] Prevnar 13 (PCV13) Prevnar 13 (PCV13) 2021-01-27 Completed [facility] 10:33:00 - [facility] Prevnar 13 (PCV13) Prevnar 13 (PCV13) 2021-01-27 Completed [facility] 10:33:00 [facility] Prevnar 13 (PCV13) Prevnar 13 (PCV13) 2021-01-27 Completed [facility] 10:33:00 - [facility] Prevnar 13 (PCV13) Prevnar 13 (PCV13) 2021-01-27 Completed [facility] 10:33:00 - [facility] Prevnar 13 (PCV13) Prevnar 13 (PCV13) 2021-01-27 Completed [facility] 10:33:00 - [facility] Prevnar 13 (PCV13) Prevnar 13 (PCV13) 2021-01-27 Completed [facility] 10:33:00 - [facility] Prevnar 13 (PCV13) Prevnar 13 (PCV13) 2021-01-27 Completed [facility] 10:33:00 - [facility] Prevnar 13 (PCV13) Prevnar 13 (PCV13) 2021-01-27 Completed [facility] 10:33:00 - [facility] Prevnar 13 (PCV13) Prevnar 13 (PCV13) 2021-01-27 Completed [facility] 10:33:00 - [facility] Prevnar 13 (PCV13) Prevnar 13 (PCV13) 2021-01-27 Completed [facility] 10:33:00 - [facility] Prevnar 13 (PCV13) Prevnar 13 (PCV13) 2021-01-27 Completed [facility] 10:33:00 - [facility] FluAD FluAD 2021-01-27 Completed [facility] 10:32:00 - [facility] FluAD FluAD 2021-01-27 Completed [facility] 10:32:00 - [facility] FluAD FluAD 2021-01-27 Completed [facility] 10:32:00 - [facility] FluAD FluAD 2021-01-27 Completed [facility] 10:32:00 - [facility] FluAD FluAD 2021-01-27 Completed [facility] 10:32:00 - [facility] FluAD FluAD 2021-01-27 Completed [facility] 10:32:00 - [facility] FluAD FluAD 2021-01-27 Completed [facility] 10:32:00 - [facility] FluAD FluAD 2021-01-27 Completed [facility] 10:32:00 - [facility] FluAD FluAD 2021-01-27 Completed [facility] 10:32:00 - [facility] FluAD FluAD 2021-01-27 Completed [facility] 10:32:00 - [facility] FluAD FluAD 2021-01-27 Completed [facility] 10:32:00 - [facility] FluAD FluAD 2021-01-27 Completed [facility] 10:32:00 - [facility] FluAD FluAD 2021-01-27 Completed [facility] 10:32:00 - [facility] FluAD FluAD 2021-01-27 Completed [facility] 10:32:00 - [facility] Vital Signs Vital Name Observation Time Observation Value Comments Source height 2022-03-14 13:40:00 70.5 [in_i] [facility] weight 2022-03-14 13:40:00 170 [lb_av] [facility] temperature 2022-03-14 13:40:00 97.8 [degF] [facility] bmi 2022-03-14 13:40:00 24.05 kg/m2 [facility] oximetry 2022-03-14 13:40:00 99 % [facility] respiratory rate 2022-03-14 13:40:00 18 /min Comm on [facility] height 2022-01-14 10:50:00 70.5 [in_i] [facility] weight 2022-01-14 10:50:00 186 [lb_av] [facility] temperature 2022-01-14 10:50:00 97.1 [degF] [facility] bmi 2022-01-14 10:50:00 26.31 kg/m2 [facility] oximetry 2022-01-14 10:50:00 97 % [facility] respiratory rate 2022-01-14 10:50:00 16 /min Comm on [facility] blood pressure 2022-01-14 10:50:00 138 mm[Hg] [facility] - systolic [facility] blood pressure 2022-01-14 10:50:00 73 mm[Hg] [facility] - diastolic [facility] height 2021-11-15 11:20:00 70.5 [in_i] Common S pirit - [facility] weight 2021-11-15 11:20:00 186 [lb_av] [facility] temperature 2021-11-15 11:20:00 97.5 [degF] Common S pirit [facility] bmi 2021-11-15 11:20:00 26.31 kg/m2 [facility] oximetry 2021-11-15 11:20:00 97 % [facility] respiratory rate 2021-11-15 11:20:00 16 /min Comm on [facility] blood pressure 2021-11-15 11:20:00 139 mm[Hg] Common [facility] - systolic [facility] blood pressure 2021-11-15 11:20:00 67 mm[Hg] [facility] - diastolic [facility] height 2021-10-10 10:40:00 70.5 [in_i] [facility] weight 2021-10-10 10:40:00 186 [lb_av] [facility] temperature 2021-10-10 10:40:00 97.6 [degF] Common S pirit [facility] bmi 2021-10-10 10:40:00 26.31 kg/m2 Common S pirit [facility] oximetry 2021-10-10 10:40:00 96 % Common S [facility] respiratory rate 2021-10-10 10:40:00 16 /min Comm on [facility] blood pressure 2021-10-10 10:40:00 127 mm[Hg] Common [facility] - systolic [facility] blood pressure 2021-10-10 10:40:00 58 mm[Hg] [facility] - diastolic [facility] height 2021-10-10 10:30:00 70.5 [in_i] Common S [facility] weight 2021-10-10 10:30:00 186 [lb_av] Common [facility] temperature 2021-10-10 10:30:00 97.6 [degF] Common [facility] bmi 2021-10-10 10:30:00 26.31 kg/m2 Common S [facility] oximetry 2021-10-10 10:30:00 96 % [facility] respiratory rate 2021-10-10 10:30:00 16 /min Comm on [facility] blood pressure 2021-10-10 10:30:00 127 mm[Hg] Common [facility] systolic [facility] blood pressure 2021-10-10 10:30:00 58 mm[Hg] Common [facility] - diastolic [facility] height 2021-08-29 10:00:00 70.5 [in_i] Common [facility] weight 2021-08-29 10:00:00 186.0 [lb_av] [facility] temperature 2021-08-29 10:00:00 98.6 [degF] Common [facility] bmi 2021-08-29 10:00:00 26.31 kg/m2 [facility] oximetry 2021-08-29 10:00:00 98 % [facility] respiratory rate 2021-08-29 10:00:00 17 /min Comm on [facility] blood pressure 2021-08-29 10:00:00 140 mm[Hg] Common [facility] systolic [facility] blood pressure 2021-08-29 10:00:00 75 mm[Hg] Common [facility] diastolic [facility] Procedures This patient has no known procedures. Encounters Start End Encounter Admission Attending Care Care Encounter Source Date/Time Date/Time Type Type Clinicians Facility Department ID 2022-05-15 Outpatient Cortes, STLMLC STLMLC [id number] Common 11:46:02 Adam [id number] [facility] 2022-03-14 Outpatient Cortes, STLMLC STLMLC [id number] Common 13:09:00 Adam [id number] [facility] 2022-01-10 Outpatient Cortes, STLMLC STLMLC [id number] Common 10:18:02 Adam [id number] [facility] 2021-09-25 Outpatient Cortes, STLMLC STLMLC [id number] Common 09:44:03 Adam [facility] 2021-08-29 Outpatient Cortes, STLMLC STLMLC [id number] Common 09:40:04 Adam [facility] 2022-03-20 2022-03-20 (WEB) STLMLC STLMLC [id number] Co mmon 00:00:00 00:00:00 [facility] 2022-03-14 2022-03-14 OFFICE STLMLC STLMLC [id number] Co mmon 00:00:00 00:00:00 VISIT EST Spir it PT LEVEL 3 [facility] 2022-03-14 2022-03-14 (TEL) STLMLC STLMLC [id number] Co mmon 00:00:00 00:00:00 [facility] 2022-01-14 2022-01-14 OFFICE STLMLC STLMLC [id number] Co mmon 00:00:00 00:00:00 VISIT [facility] PT - CHI LEVEL 4 [facility] 2022-01-14 2022-01-14 (TEL) STLMLC STLMLC [id number] Co mmon 00:00:00 00:00:00 [facility] 2021-11-15 2021-11-15 (TEL) STLMLC STLMLC [id number] Co mmon 00:00:00 00:00:00 [facility] 2021-11-15 2021-11-15 OFFICE STLMLC STLMLC [id number] Co mmon 00:00:00 00:00:00 VISIT Spirit ESTAB PT - CHI LEVEL 4 [facility] 2021-11-12 2021-11-12 (TEL) STLMLC STLMLC [id number] Co mmon 00:00:00 00:00:00 [facility] 2021-10-10 2021-10-10 SUB ANNUAL STLMLC STLMLC [id number] Common 00:00:00 00:00:00 [facility] WELLNESS - CHI VISIT [facility] 2021-10-10 2021-10-10 OFFICE STLMLC STLMLC [id number] Co mmon 00:00:00 00:00:00 VISIT [facility] PT - CHI LEVEL 4 [facility] 2021-10-10 2021-10-10 (TEL) STLMLC STLMLC [id number] Co mmon 00:00:00 00:00:00 [facility] 2021-08-29 2021-08-29 OFFICE STLMLC STLMLC [id number] Co mmon 00:00:00 00:00:00 VISIT NEW [facility] PT LEVEL 4 [facility] Results This patient has no known results.
[2022-07-16] MEDS ORDERED: ONDANSETRON 4 MG/2 ML VIAL ONE (10:48)
[2022-07-16] MEDS ORDERED: MORPHINE 2 MG/ML SYR ONE (10:48)
[2022-07-16] MEDS ORDERED: NA CHLORIDE 0.9% 1,000 ML ONE (10:49)
[2022-07-16 11:11] LABS: Absolute Lymphocytes (CBC) 1.1 K/uL (0.7-4.9); Hematocrit 37.7 % (39.6-49.0); Lymphocytes % 18.1 % (15.3-44.8); MCV 94.2 fL (80-100); MPV 7.3 fL (7.6-11.3)
[2022-07-16 11:13] LABS: Protime INR 0.99
[2022-07-16 11:29] LABS: ALT/SGPT 24 U/L (16-61); AST/SGOT 24 U/L (15-37); Albumin 3.3 g/dL (3.4-5.0); Alkaline Phosphatase 128 U/L (45-117); BUN Blood Urea Nitrogen 9 mg/dL (7-18); Bicarbonate 27 mEq/L (21-32); Bilirubin Direct < 0.1 mg/dL (0-0.2); Bilirubin Total 0.3 mg/dL (0.2-1.0); Glomerular Filtration Rate 89 ml/min (=/>90); Glucose Level 135 mg/dL (74-106); Lipase 21 U/L (13-75); Magnesium 2.2 mg/dL (1.6-2.4); NT PRO-BNP 109 pg/mL (<450); Protein, Total 7.6 g/dL (6.4-8.2); Sodium Level 133 mEq/L (136-145); Troponin High Sensitivity 5.6 pg/mL (<58.9)
--- NOTE | 2022-07-16 12:22 | RAD REPORT ---
EXAM DESCRIPTION: RAD - Chest Single View - 07/16/2022 12:16 pm CLINICAL HISTORY: COUGH Chest pain. COMPARISON: Chest Single View dated 03/13/2022; Chest Single View dated 08/18/2020; Chest Single View dated 08/17/2020; Chest Single View dated 05/31/2019 FINDINGS: Portable technique limits examination quality. The lungs are grossly clear. The heart is normal in size. No displaced fractures. IMPRESSION: No acute intrathoracic process suspected.
--- NOTE | 2022-07-16 12:22 | ER ---
Nurse's Notes [facility] Name: Mango Giron Age: 87 yrs Sex: Male : 1935 Arrival Date: 07/16/2022 Time: 09:57 Bed 7 Private MD: Diagnosis: Repeated falls;Pain in right hip-intractable, non ambulatory Presentation: 07/16 10:15 Chief complaint: Patient states: Complains of right hip pain EMS states: Reports home sg5 health aid reports patient had X 2 falls from standing yesterday unknown mechanism of fall and complains of right hip pain. 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 Uses a walker for assist. Coronavirus screen: At this time, the client does not indicate any symptoms associated with coronavirus-19. Ebola Screen: No symptoms or risks identified at this time. Initial Sepsis Screen: Does the patient meet any 2 criteria? No. Patient's initial sepsis screen is negative. Does the patient have a suspected source of infection? No. Patient's initial sepsis screen is negative. Risk Assessment: Do you want to hurt yourself or someone else? Patient reports no desire to harm self or others. Onset of symptoms was July 15, 2022. 10:15 Method Of Arrival: EMS: [facility] sg5 10:15 Acuity: BARRON 3 sg5 Triage Assessment: 10:21 General: Appears in no apparent distress. Behavior is calm, cooperative, appropriate sg5 for age. Pain: Complains of pain in right hip Pain currently is 4 out of 10 on a pain scale. Cardiovascular: Capillary refill < 3 seconds. Respiratory: Airway is patent. Musculoskeletal: Capillary refill < 3 seconds, Reports pain in right hip. Historical: - Allergies: 10:21 Codeine; sg5 - Home Meds: 10:21 Elizabeth Oral [Active]; aspirin 81 mg Oral chew 1 tab once daily [Active]; atorvastatin sg5 Oral [Active]; fluticasone [Active]; gabapentin 600 mg Oral tab [Active]; lisinopril 5 mg Oral tab [Active]; metformin 1,000 mg Oral TG24 1 tab 2 times per day [Active]; multivitamin Oral cap [Active]; Phenytoin Oral [Active]; tamsulosin 0.4 mg Oral cp24 1 cap once daily [Active]; - PMHx: 10:21 Diabetes - NIDDM; enlarged prostate; Hypertension; Polio; Seizures; sg5 - Immunization history:: Adult Immunizations up to date. - Social history:: Smoking status: Patient denies any tobacco usage or history of. - Family history:: not pertinent. Screenin:28 [facility] ED Fall Risk Assessment (Adult) History of falling in the last 3 months, sg5 including since admission Yes- single mechanical fall (1 pt). Abuse screen: Denies threats or abuse. Nutritional screening: No deficits noted. Tuberculosis screening: No symptoms or risk factors identified. Assessment: 10:28 General: Appears in no apparent distress. Pain: Complains of pain in right hip Pain sg5 currently is 4 out of 10 on a pain scale. Neuro: No deficits noted. Level of Consciousness is awake, alert, obeys commands, Oriented to person, place, time, situation, Appropriate for age. Cardiovascular: Heart tones S1 S2 present Capillary refill < 3 seconds. Respiratory: Airway is patent Trachea midline. GI: No deficits noted. Abdomen is non-distended. : No deficits noted. EENT: No deficits noted. Derm: No deficits noted. Musculoskeletal: Reports pain in right hip. 15:50 General: Report given to FIDEL Nolasco. ap3 Vital Signs: 10:15 BP 124 / 90; Pulse 87; Resp 17; Temp 98.3; Pulse Ox 96% ; Weight 83.91 kg; Height 5 ft. sg5 10 in. ; Pain 4/10; 12:00 BP 134 / 74; Pulse 80; Resp 16; Pulse Ox 96% on 2 lpm NC; sg5 10:15 Body Mass Index 26.54 (83.91 kg, 177.8 cm) sg5 10:15 Pain Scale: Adult sg5 ED Course: 10:14 Patient arrived in ED. sg5 10:14 Dann Ren MD is Attending Physician. [facility] 10:15 Donna Horvath, RN is Primary Nurse. sg5 10:21 Triage completed. sg5 10:21 Arm band placed on right wrist. sg5 10:28 Bed in low position. Call light in reach. Side rails up X2. sg5 11:22 Type And Screen Sent. ks8 12:18 XRAY Chest (1 view) In Process Unspecified. EDMS 12:18 Pelvis XRAY In Process Unspecified. EDMS 12:18 Hip Right 2 View XRAY In Process Unspecified. EDMS 12:18 Femur Right XRAY In Process Unspecified. EDMS 12:20 Suresh Ferreira MD is Hospitalizing Provider. [facility] 12:21 CT Traumagram (Head C Spine CAP wo con) In Process Unspecified. EDMS 16:10 No provider procedures requiring assistance completed. Patient admitted, IV remains in ap3 place. Administered Medications: 11:10 Not Given (Patient Refused): Ondansetron IVP 2 mg IVP once; over 2 minutes ap3 11:11 Drug: NS 0.9% IV 1000 ml Route: IV; Rate: 125 ml/hr; Site: left antecubital; ap3 15:53 Follow up: IV Status: Completed infusion ap3 11:11 Not Given (Patient Refused): morphine IVP or IV 2 mg IVP once over 4 mins ap3 11:11 Not Given (Patient Refused): morphine IVP or IV 2 mg IVP once over 4 mins ap3 Medication: 10:28 VIS not applicable for this client. sg5 Outcome: 12:21 Decision to Hospitalize by Provider. [facility] 16:10 Admitted to Med/surg ap3 16:10 Condition: good 16:10 Instructed on the need for admit. 16:53 Patient left the ED. ap3 Signatures: Dispatcher [employer] Dann Regalado MD MD cha Prokisch, Amanda RN RN ap3 Gardenia Gnogora Stephanie RN RN sg5
--- NOTE | 2022-07-16 12:22 | EDPHYS ---
Physician Documentation [facility] Name: Mango Giron Age: 87 yrs Sex: Male : 1935 Arrival Date: 07/16/2022 Time: 09:57 Bed 7 Private MD: ED Physician Dann Ren HPI: 07/16 12:14 This 87 yrs old Male presents to ER via EMS with complaints of Hip Pain. lashae 12:14 The patient or guardian reports pain. that occurred at home, sustained from a fall. The lashae complaints affect the right femoral area and right hip. Onset: The symptoms/episode began/occurred 1 day(s) ago. Modifying factors: The symptoms are alleviated by remaining still, the symptoms are aggravated by any movement, internal rotation, weight bearing. Associated signs and symptoms: Loss of consciousness: the patient experienced no loss of consciousness. Severity of symptoms: At their worst the symptoms were moderate, in the emergency department the symptoms are unchanged. The patient has not experienced similar symptoms in the past. Historical: - Allergies: 10:21 Codeine; sg5 - Home Meds: 10:21 Elizabeth Oral [Active]; aspirin 81 mg Oral chew 1 tab once daily [Active]; atorvastatin sg5 Oral [Active]; fluticasone [Active]; gabapentin 600 mg Oral tab [Active]; lisinopril 5 mg Oral tab [Active]; metformin 1,000 mg Oral TG24 1 tab 2 times per day [Active]; multivitamin Oral cap [Active]; Phenytoin Oral [Active]; tamsulosin 0.4 mg Oral cp24 1 cap once daily [Active]; - PMHx: 10:21 Diabetes - NIDDM; enlarged prostate; Hypertension; Polio; Seizures; sg5 - Immunization history:: Adult Immunizations up to date. - Social history:: Smoking status: Patient denies any tobacco usage or history of. - Family history:: not pertinent. ROS: 12:14 Constitutional: Negative for fever, chills, and weight loss, Eyes: Negative for injury, lashae pain, redness, and discharge, ENT: Negative for injury, pain, and discharge, Neck: Negative for injury, pain, and swelling, Cardiovascular: Negative for chest pain, palpitations, and edema, Respiratory: Negative for shortness of breath, cough, wheezing, and pleuritic chest pain, Abdomen/GI: Negative for abdominal pain, nausea, vomiting, diarrhea, and constipation, Back: Negative for injury and pain, : Negative for injury, bleeding, discharge, and swelling, Skin: Negative for injury, rash, and discoloration, Neuro: Negative for headache, weakness, numbness, tingling, and seizure, Psych: Negative for depression, anxiety, suicide ideation, homicidal ideation, and hallucinations, Allergy/Immunology: Negative for hives, rash, and allergies, Endocrine: Negative for neck swelling, polydipsia, polyuria, polyphagia, and marked weight changes, Hematologic/Lymphatic: Negative for swollen nodes, abnormal bleeding, and unusual bruising. 12:14 MS/extremity: Positive for injury or acute deformity, decreased range of motion, pain, of the right upper thigh. Exam: 12:14 Constitutional: This is a well developed, well nourished patient who is awake, alert, lashae and in no acute distress. Head/Face: Normocephalic, atraumatic. Eyes: Pupils equal round and reactive to light, extra-ocular motions intact. Lids and lashes normal. Conjunctiva and sclera are non-icteric and not injected. Cornea within normal limits. Periorbital areas with no swelling, redness, or edema. ENT: Nares patent. No nasal discharge, no septal abnormalities noted. Tympanic membranes are normal and external auditory canals are clear. Oropharynx with no redness, swelling, or masses, exudates, or evidence of obstruction, uvula midline. Mucous membranes moist. Neck: Trachea midline, no thyromegaly or masses palpated, and no cervical lymphadenopathy. Supple, full range of motion without nuchal rigidity, or vertebral point tenderness. No Meningismus. Chest/axilla: Normal chest wall appearance and motion. Nontender with no deformity. No lesions are appreciated. Cardiovascular: Regular rate and rhythm with a normal S1 and S2. No gallops, murmurs, or rubs. Normal PMI, no JVD. No pulse deficits. Respiratory: Lungs have equal breath sounds bilaterally, clear to auscultation and percussion. No rales, rhonchi or wheezes noted. No increased work of breathing, no retractions or nasal flaring. Abdomen/GI: Soft, non-tender, with normal bowel sounds. No distension or tympany. No guarding or rebound. No evidence of tenderness throughout. Back: No spinal tenderness. No costovertebral tenderness. Full range of motion. Skin: Warm, dry with normal turgor. Normal color with no rashes, no lesions, and no evidence of cellulitis. Neuro: Awake and alert, GCS 15, oriented to person, place, time, and situation. Cranial nerves II-XII grossly intact. Motor strength 5/5 in all extremities. Sensory grossly intact. Cerebellar exam normal. Normal gait. Psych: Awake, alert, with orientation to person, place and time. Behavior, mood, and affect are within normal limits. 12:14 ECG was reviewed by the Attending Physician. 12:14 Musculoskeletal/extremity: Extremities: grossly normal except: noted in the right hip and right upper thigh: decreased ROM, pain, ROM: Circulation is intact in all extremities. Sensation intact. Compartment Syndrome exam of affected extremity: is normal. Weight bearing: is unable to bear weight, DVT Exam: no swelling, negative Homans' sign noted on exam, no appreciated bluish discoloration, no erythema, no increased warmth, pain, tenderness. Vital Signs: 10:15 BP 124 / 90; Pulse 87; Resp 17; Temp 98.3; Pulse Ox 96% ; Weight 83.91 kg; Height 5 ft. sg5 10 in. ; Pain 4/10; 12:00 BP 134 / 74; Pulse 80; Resp 16; Pulse Ox 96% on 2 lpm NC; sg5 10:15 Body Mass Index 26.54 (83.91 kg, 177.8 cm) sg5 10:15 Pain Scale: Adult sg5 MDM: 10:22 Patient medically screened. lashae 12:18 Differential diagnosis: hip fracture, intertrochanteric fracture, femoral neck lashae fracture, femoral shaft fracture, bursitis, arthritis. Data reviewed: vital signs, nurses notes, lab test result(s), EKG, radiologic studies, CT scan, plain films. Consideration of Admission/Observation Patient was admitted/placed on observation. Escalation of care including admission/observation considered. I considered the following discharge prescriptions or medication management in the emergency department Medications were administered in the Emergency Department. See MAR. Test considered but Not performed: MRI: no hip mri. Care significantly affected by the following chronic conditions: Diabetes, Hypertension, polio, seizures. Counseling: I had a detailed discussion with the patient and/or guardian regarding: the historical points, exam findings, and any diagnostic results supporting the discharge/admit diagnosis, lab results, radiology results, the need for further work-up and treatment in the hospital. 07/16 10:24 Order name: Basic Metabolic Panel; Complete Time: 13:02 [facility] 07/16 10:24 Order name: CBC with Diff; Complete Time: 13:02 [facility] 07/16 10:24 Order name: LFT's; Complete Time: 13:02 [facility] 07/16 10:24 Order name: Magnesium; Complete Time: 13:02 [facility] 07/16 10:24 Order name: NT PRO-BNP; Complete Time: 13:02 [facility] 07/16 10:24 Order name: PT-INR [facility] 07/16 10:24 Order name: Troponin HS; Complete Time: 13:02 [facility] 07/16 10:24 Order name: Lipase; Complete Time: 13: [facility] 07/16 10:24 Order name: Urinalysis w/ reflexes [facility] 07/16 10:24 Order name: Type And Screen; Complete Time: 13:02 [facility] 07/16 16:34 Order name: Phosphorus [facility] 07/16 16:34 Order name: Magnesium [facility] 07/16 10:24 Order name: XRAY Chest (1 view); Complete Time: 13:02 [facility] 07/16 10:24 Order name: Pelvis XRAY; Complete Time: 13:02 [facility] 07/16 10:24 Order name: Hip Right 2 View XRAY; Complete Time: 13:02 [facility] 07/16 10:24 Order name: Femur Right XRAY; Complete Time: 13:02 [facility] 07/16 11:49 Order name: CT Traumagram (Head C Spine CAP wo con); Complete Time: 13:02 [facility] 07/16 15:24 Order name: Hip Right Wo Cont [facility] 07/16 10:24 Order name: EKG; Complete Time: 10:25 07/16 15:23 Order name: Physical Therapy Consult [facility] 07/16 10:24 Order name: Cardiac monitoring; Complete Time: 11:11 [facility] 07/16 10:24 Order name: EKG - Nurse/Tech; Complete Time: 12:17 [facility] 07/16 10:24 Order name: IV Saline Lock; Complete Time: 11:11 [facility] 07/16 10:24 Order name: Labs collected and sent; Complete Time: 11:11 lashae 07/16 10:24 Order name: O2 Per Protocol; Complete Time: :25 lashae 07/16 10:24 Order name: O2 Sat Monitoring; Complete Time: : lashae EC:14 Rate is 82 beats/min. Rhythm is regular. QRS [place] is Normal. [place] interval is normal. QRS lashae interval is normal. QT interval is normal. No Q waves. No ST changes noted. Clinical impression: Normal ECG, NSR w/ Non-specific ST/T Changes, and No evidence of ischemia. Interpreted by me. Reviewed by me. Administered Medications: 11:10 Not Given (Patient Refused): Ondansetron IVP 2 mg IVP once; over 2 minutes ap3 11:11 Drug: NS 0.9% IV 1000 ml Route: IV; Rate: 125 ml/hr; Site: left antecubital; ap3 15:53 Follow up: IV Status: Completed infusion ap3 11:11 Not Given (Patient Refused): morphine IVP or IV 2 mg IVP once over 4 mins ap3 11:11 Not Given (Patient Refused): morphine IVP or IV 2 mg IVP once over 4 mins ap3 Disposition Summary: 07/16/22 12:21 Hospitalization Ordered Hospitalization Status: Inpatient Admission lashae Provider: Suresh Ferreira cha Location: Telemetry/MedSurg (Inpatient) lashae Condition: Fair lashae Problem: new lashae Symptoms: have improved lashae Bed/Room Type: Standard lashae Room Assignment: 231(07/16/22 15:42) bd Diagnosis - Repeated falls lashae - Pain in right hip - intractable, non ambulatory lashae Forms: - Medication Reconciliation Form lashae - SBAR form lashae Signatures: Dispatcher [employer] EDDanielle Puga Corey, MD MD cha Prokisch, Amanda RN RN ap3 Donna Horvath RN RN sg5 Corrections: (The following items were deleted from the chart) 15:42 12:21 lashae bd
--- NOTE | 2022-07-16 12:25 | RAD REPORT ---
EXAM DESCRIPTION: RAD - Pelvis - 07/16/2022 12:16 pm CLINICAL HISTORY: PAIN COMPARISON: PELVIS dated 02/19/2009; Hip Right 2 View dated 07/16/2022; Femur Right dated 07/16/2022 FINDINGS: Mild osteoarthritis involving both hips. Cortical irregularity involving the right pubic s ymphysis likely indicates nondisplaced fracture. IMPRESSION: Nondisplaced fracture right pubic symphysis suspected.
--- NOTE | 2022-07-16 12:26 | RAD REPORT ---
EXAM DESCRIPTION: RAD - Hip Right 2 View - 07/16/2022 12:16 pm CLINICAL HISTORY: PAIN COMPARISON: Hip Right 2 View dated 05/31/2019 FINDINGS: Mild osteoarthritis right hip. The right hip itself is intact without fracture. Lucency is seen involving the pubic symphysis, right aspect, likely mild fracture.
--- NOTE | 2022-07-16 12:31 | RAD REPORT ---
EXAM DESCRIPTION: RAD - Femur Right - 07/16/2022 12:16 pm CLINICAL HISTORY: PAIN COMPARISON: No comparisons FINDINGS: Diffuse osteopenia. Mild osteoarthritis. No femur fracture. Lucency in the region of the s uperior right pubic symphysis probably represents nondisplaced fracture.
--- NOTE | 2022-07-16 13:00 | RAD REPORT ---
EXAM DESCRIPTION: CT - Head C Spine Cap Wo Con - 07/16/2022 12:20 pm CLINICAL HISTORY: Trauma, head and neck injury. Chest, abdomen and pelvis pain. TRAUMA COMPARISON: Hip Right 2 View dated 07/16/2022; Femur Right dated 07/16/2022 TECHNIQUE: CT head without contrast. CT cervical spine without contrast with coronal and sagittal reformatted images. CT chest, abdomen and pelvis with coronal and sagittal reformatted images of the spine. All CT scans are performed using dose optimization technique as appropriate and may include automated exposure control or mA/KV adjustment according to patient size. FINDINGS: CT HEAD WITHOUT CONTRAST: No intracranial hemorrhage, hydrocephalus or extra-axial fluid collection. No acute large vascular te rritory infarct. Cerebral atrophy Chronic left maxillary sinus wall thickening and opacification. The calvarium is intact. Cerebral atrophy. CT CERVICAL SPINE WITHOUT CONTRAST: No fracture or subluxation. The prevertebral soft tissues are normal in thickness.Mild multilevel cervical spondylosis which is m ost advanced at the C4-5 level were there is severe bilateral foraminal narrowing. Mild bilateral shelly ral foraminal narrowing is present at C3-4. CT CHEST, ABDOMEN, PELVIS: Thorax: Chest Wall: No abnormal mass Lungs: No acute abnormality. Pleura: No effusions or pneumothorax. Hui/Mediastinum: No lymphadenopathy. Aorta/Pulmonary Arteries: Unremarkable Heart: Normal size. Coronary artery calcifications. Abdomen/Pelvis: Liver: No acute abnormality or suspicious lesions. Biliary: No biliary ductal dilatation. Cholelithiasis. Stomach: No significant focal abnormality. Duodenum: No significant focal abnormality. Pancreas: No significant abnormality. Spleen: No significant abnormality. Adrenal: No suspicious lesions. Kidney/ureter: No hydronephrosis. No renal calculi. Retroperitoneum: No retroperitoneal adenopathy. Vascular: No aneurysm. Bowel: No significant focal abnormality. Peritoneum: No ascites or free air. Bladder: Grossly unremarkable. Reproductive: No adnexal masses. Bones: No acute fracture. Remote L2 compression fracture. Other: n/a IMPRESSION: Negative for acute traumatic findings. No fracture identified at the right superior pubi c symphysis as was suspected on the radiograph .
[2022-07-16] MEDS ORDERED: ACETAMINOPHEN 325 MG TABLET PO PRN (15:05)
[2022-07-16] MEDS ORDERED: TRAMADOL HCL 50 MG TAB PO PRN (15:20)
[2022-07-16] MEDS ORDERED: ONDANSETRON 4 MG/2 ML VIAL IV PRN (15:24)
[2022-07-16] MEDS ORDERED: HYDRALAZINE HCL 20 MG/ML VIAL IV PRN (15:26)
--- NOTE | 2022-07-16 15:28 | P.HP ---
Certification for Inpatient Patient admitted to: Inpatient With expected LOS: >2 Midnights Patient will require the following post-hospital care: None Practitioner: I am a practitioner with admitting privileges, knowledge of patient current condition, hospital course, and medical plan of care. Services: Services provided to patient in accordance with Admission requirements found in Title 42 Section 412.3 of the Code of Federal Regulations Patient History Date of Service: 07/16/22 Reason for admission: Right hip pain History of Present Illness: Patient is 87-year-old male with a past medical history significant for DM 2, HLD, hypertension, seizures, polio, BPH who presents with complaint of right hip pain. Patient rated pain as 8/10 in severity and described pain as aching in quality. Caregiver reported that patient is able to ambulate with a walker but yesterday patient fell twice because of bilateral lower extremity weakness. Maik ware denies hitting his head or losing consciousness. Family reported that pain started yesterday but severity of pain became worse today. Patient denies any other signs and symptoms. Symptoms are aggravated by movement and relieved by nothing. Family decided to bring patient to the hospital because patient is unable to ambulate. Allergies codeine Adverse Reaction (Verified 04/19/18 00:04) Nausea/Vomiting Home Medications: Aspirin [Adult Aspirin] 81 mg PO DAILY 04/19/18 Calcium Carbonate [Calcium] 500 mg PO DAILY 04/19/18 Fluticasone Propionate [Flonase Allergy Relief] 1 spray NS DAILY 04/19/18 Metformin HCl 1,000 mg PO BIDWM 04/19/18 Multivitamin [Multivitamins] 1 each PO DAILY 04/19/18 Phenytoin Sodium Extended 100 mg PO TID 04/19/18 Tamsulosin HCl [Flomax] 0.4 mg PO DAILY 04/19/18 Brimonidine [Alphagan P 0.15%*] 1 drops EACH EYE BID 08/18/20 Fexofenadine/Pseudoephedrine [Elizabeth-D 24 Hour Tablet] 1 each PO BEDTIME 08/18/20 Lovastatin [Altoprev] 40 mg PO BEDTIME 08/18/20 Vit C/E/Zn/Coppr/Lutein/Zeaxan [Preservision Areds 2 Softgel] 1 each PO BID 08/18/20 Azithromycin Tab [Zithromax*] 250 mg PO ZPAK #1 ignacio 08/19/20 - Past Medical/Surgical History Diabetic: Yes -: Diabetes mellitus type 2 -: BPH -: Cataracts/glaucoma -: History of polio -: Seizure disorder -: Cataracts/glaucoma -: Appendectomy -: Right foot surgery -: Sinus surgery Psychosocial/ Personal History: The patient is of 55 years. He has 3 children. - Family History Mother -: Cancer Father -: Heart disease Notes: CHF - Social History Smoking Status: Former smoker Alcohol use: No CD- Drugs: No Caffeine use: Yes Place of Residence: Home Review of Systems General: Weakness Eyes: Unremarkable ENT: Unremarkable Respiratory: Unremarkable Cardiovascular: Unremarkable Gastrointestinal: Unremarkable Genitourinary: Unremarkable Musculoskeletal: Other (Right hip pain ) Integumentary: Unremarkable Neurological: Unremarkable Lymphatics: Unremarkable Physical Examination - Physical Exam General: Alert, In no apparent distress, Oriented x3 HEENT: Atraumatic, PERRLA, Mucous membr. moist/pink, EOMI, Sclerae nonicteric Neck: Supple, 2+ carotid pulse no bruit, No LAD, Without JVD or thyroid abnormality Respiratory: Clear to auscultation bilaterally, Normal air movement Cardiovascular: No edema, Regular rate/rhythm, Normal S1 S2 Capillary refill: <2 Seconds Gastrointestinal: Normal bowel sounds, Non-distended, No tenderness Musculoskeletal: No clubbing, No swelling, Tenderness (Right hip) Integumentary: No rashes, No breakdown, No significant lesion Neurological: Normal speech, Normal tone, Normal affect, Abnormal gait Lymphatics: No axilla or inguinal lymphadenopathy - Studies Laboratory Data (last 24 hrs) 07/16/22 10:55: PT 10.9, INR 0.99 07/16/22 10:55: WBC 5.80, Hgb 12.5 L, Hct 37.7 L, Plt Count 206 07/16/22 10:55: Sodium 133 L, Potassium 4.0, BUN 9, Creatinine 0.70, Glucose 135 H, Magnesium 2.2, Total Bilirubin 0.3, AST 24, ALT 24, Alkaline Phosphatase 128 H, Lipase 21 Assessment and Plan - Plan --Right hip pain. CT imaging does not indicate any acute traumatic findings. MRI right hip pending for further evaluation. PT eval and treat. Continue supportive care. -- Acute pain. We will manage pain with current pain medication regimen. -- DM2. BS monitoring with sliding scale insulin. --Hypertension. Stable. Continue home medications. -- History of polio. Continue supportive care. --BPH. Continue home medication. --Hyperlipidemia. Continue statin. --History of seizures. Continue home medications. Seizure precautions. --Anemia of chronic disease. H&H stable. We will continue to monitor for hemoglobin and transfuse if less than 7.0. --CKD 2. Stable. We will continue to monitor renal function. --Glaucoma. Continue home medication. --DVT prophylaxis with Lovenox subQ. Discharge Plan: Home Plan to discharge in: Greater than 2 days - Advance Directives Does patient have a Living Will: No Does patient have a Durable POA for Healthcare: Yes - Code Status/Comfort Care Code Status Assessed: Yes Physician Review: Patient Assessed, Agree with Above Assessment and Plan Critical Care: No
[2022-07-16] MEDS: INSULIN -REGULAR HUMAN 50 UNIT/0.5 ML ML SQ SCH ×2 (16:30→21:00)
[2022-07-16 16:34] LABS: Phosphorus 2.6 mg/dL (2.5-4.9)
[2022-07-16 17:30] VITALS: BMI 26.5
[2022-07-16] MEDS: ENOXAPARIN 40 MG/0.4 ML SQ SCH (17:41)
[2022-07-16 18:21] LABS: Specific Gravity 1.013 (1.005-1.030); Urine Bacteria None Seen /HPF (<20); Urine Bilirubin NEGATIVE (Negative); Urine Blood Negative (Negative); Urine Clarity Clear (Clear); Urine Color Light-Yellow (Yellow); Urine Glucose NEGATIVE (Negative); Urine Mucus Slight /HPF (None Seen); Urine Protein NEGATIVE (Negative); Urine RBC <5 /HPF (None Seen); Urine Urobilinogen Normal (Normal); Urine pH 6.5 (5.0-7.0)
--- NOTE | 2022-07-16 20:10 | RAD REPORT ---
EXAM DESCRIPTION: MRI - Hip Right Wo Cont - 07/16/2022 7:57 pm CLINICAL HISTORY: HIP pain COMPARISON: Head C Spine Cap Wo Con dated 07/16/2022 FINDINGS: Edema present within the left pubic symphysis and inferior pubic ramus consistent with a n ondisplaced fracture. There is surrounding edema. Both hips are intact and located. No other fracture s are seen. No sacral fracture identified. Soft tissues are otherwise unremarkable. IMPRESSION: Nondisplaced fracture involving the right pubic symphysis and inferior pubic ramus.
[2022-07-17 03:42] LABS: Absolute Lymphocytes (CBC) 1.2 K/uL (0.7-4.9); Hematocrit 35.9 % (39.6-49.0); Lymphocytes % 19.8 % (15.3-44.8); MPV 7.4 fL (7.6-11.3); RBC Red Blood Cell Count 3.86 M/uL (4.33-5.43)
[2022-07-17 04:11] LABS: Potassium 3.9 mEq/L (3.5-5.1)
[2022-07-17] MEDS: INSULIN -REGULAR HUMAN 50 UNIT/0.5 ML ML SQ SCH ×4 (07:30→21:00)
--- NOTE | 2022-07-17 08:30 | EKG ---
Test Date: 2022-07-16 Test Time: 10:36:41 Freezer Laboratory Technician: EFE MEASUREMENT RESULTS: Intervals: Rate: 82 ID: [id number] QRSD: 90 QT: 358 QTc: 418 [place]: P: 48 ID: [id number] QRS: 68 T: 70 INTERPRETIVE STATEMENTS: Normal sinus rhythm Normal ECG Compared to ECG 03/13/2022 12:24:13 Sinus tachycardia no longer present Electronically Signed On 07-17-22 08:27:46 CDT by Jonah Hawkins
[2022-07-17] MEDS: ENOXAPARIN 40 MG/0.4 ML SQ SCH (08:34)
[2022-07-17] MEDS: ASPIRIN 81 MG CHEWABLE TABLET PO SCH (08:34)
--- NOTE | 2022-07-17 18:08 | P.PN ---
Subjective Date of Service: 07/17/22 Chief Complaint: Right hip pain Patient reports pain when he bears weight on his hip. No other complaint. Physical Examination - Vital Signs Temperature: 98.3 F Blood Pressure: 155/77 Pulse: 83 Respirations: 16 Pulse Ox (%): 95 Assessment And Plan - Current Problems (Diagnosis) (1) Fall Current Visit: Yes Status: Acute (2) Pelvic fracture Current Visit: Yes Status: Acute (3) BPH (benign prostatic hyperplasia) Onset Date: 11/24/16 Current Visit: No Status: Chronic Qualifiers: Lower urinary tract symptom presence: unspecified whether lower urinary tract symptoms present Qualified Code(s): N40.0 - Benign prostatic hyperplasia without lower urinary tract symptoms (4) Diabetes mellitus Onset Date: 11/24/16 Current Visit: No Status: Chronic Qualifiers: (5) Hypertension Onset Date: 11/24/16 Current Visit: No Status: Chronic (6) Seizure disorder Onset Date: 11/24/16 Current Visit: No Status: Chronic - Plan Physical Exam General: Alert, In no apparent distress, Oriented x3, obese. HEENT: Atraumatic, PERRLA, Mucous membr. moist/pink, EOMI, Sclerae nonicteric Neck: Supple. Respiratory: Clear to auscultation bilaterally, Normal air movement Cardiovascular: No edema, Regular rate/rhythm, Normal S1 S2 Gastrointestinal: Normal bowel sounds, Non-distended, No tenderness Musculoskeletal: No clubbing, No swelling, Tenderness (Right hip) Integumentary: No rashes, No breakdown, No significant lesion Neurological: Normal speech, no focal motor deficit. Plan: MRI of the pelvis shows nondisplaced fracture involving the right pubic symphysis and inferior pubic ramus Pain management as needed. Seen by PT, patient is currently two-person assist. He lives alone at home, has a history of polio with left leg weakness at baseline and will need placement for skilled rehab. Continue home medications for diabetes, hypertension, BPH, hyperlipidemia and history of seizures. Lovenox for DVT prophylaxis.
[2022-07-18 07:26] LABS: Potassium 3.9 mEq/L (3.5-5.1)
[2022-07-18] MEDS: INSULIN -REGULAR HUMAN 50 UNIT/0.5 ML ML SQ SCH ×4 (07:30→20:14)
[2022-07-18] MEDS: ASPIRIN 81 MG CHEWABLE TABLET PO SCH (10:24)
[2022-07-18] MEDS: ENOXAPARIN 40 MG/0.4 ML SQ SCH (10:24)
--- NOTE | 2022-07-18 15:39 | P.PN ---
Subjective Date of Service: 07/18/22 Chief Complaint: Right hip pain Patient has no new complaint except pain with movement. Physical therapist report significant weakness in the right leg. Physical Examination - Vital Signs Temperature: 97.3 F Blood Pressure: 134/74 Pulse: 82 Respirations: 16 Pulse Ox (%): 95 Assessment And Plan - Current Problems (Diagnosis) (1) Fall Current Visit: Yes Status: Acute (2) Pelvic fracture Current Visit: Yes Status: Acute (3) BPH (benign prostatic hyperplasia) Onset Date: 11/24/16 Current Visit: No Status: Chronic Qualifiers: Lower urinary tract symptom presence: unspecified whether lower urinary tract symptoms present Qualified Code(s): N40.0 - Benign prostatic hyperplasia without lower urinary tract symptoms (4) Diabetes mellitus Onset Date: 11/24/16 Current Visit: No Status: Chronic Qualifiers: (5) Hypertension Onset Date: 11/24/16 Current Visit: No Status: Chronic (6) Seizure disorder Onset Date: 11/24/16 Current Visit: No Status: Chronic - Plan Physical Exam General: Alert, In no apparent distress, Oriented x3, obese. Neck: Supple. Respiratory: Clear to auscultation bilaterally, Normal air movement Cardiovascular: No edema, Regular rate/rhythm, Normal S1 S2 Gastrointestinal: Normal bowel sounds, Non-distended, No tenderness Integumentary: No rashes, No breakdown, No significant lesion Neurological: Normal speech, right leg weakness. Plan: MRI of the pelvis shows nondisplaced fracture involving the right pubic symphysis and inferior pubic ramus Pain management as needed. Seen by PT, patient is currently two-person assist. Consulted neurology regarding history of polio with increased right lower extremity weakness. Continue PT. Continue home medications for diabetes, hypertension, BPH, hyperlipidemia and history of seizures. Lovenox for DVT prophylaxis. Skilled rehab placement.
--- NOTE | 2022-07-18 19:18 | CON ---
Reason For Consultation: Consultation called because of right hip pain and right leg weakness. History Of Present Illness: Mr. 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 Caregiver was in the room. She said he has actually been falling and was not quite honest about his falls with her. He reportedly fell at least twice that she knows of, once in the shower and 1 fall was apparently overnight. He was last left around 9 p.m. known to be okay and the next morning when she came in to see him, he was on the floor. The patient admits to falling and crawled around, but could not get off the floor. At [facility], his head and trauma series CT scan showed no acute changes such as bleeding or fractures. His laboratory studies showed slight ly elevated alkaline phosphatases, slightly low sodium, glucose ranged from 115 to above 141, calcium 8.6 magnesium 2.2, phosphorus 2.6, hemoglobin 12.3, white blood cells 6.2, platelets 196, and urinal ysis was unremarkable. The patient's polio history has left him with the ability to ambulate with a rolling walker, but only short distances within the house and he must quickly find a seat or he is li sheila to fall and for the last several months, he has required more assistance for transfers and mobil ization. The patient's son apparently reported that he was able to get up and go to the door to answ er a doorbell, but has become weaker over the last several months. His caregiver agreed that he may be able to ambulate with a rolling walker, but in the last several days has been unable to do so, he has been limited by pain and progressive weakness much worse in the right lower extremity where the p olio has impacted him. Past Medical History: As noted above, in addition to cataracts and glaucoma. Past Surgical History: Appendectomy, right foot surgery, and sinus surgery. Allergies: CODEINE. Home Medications: Aspirin 81 mg daily, calcium carbonate 500 mg daily, Flonase 1 spray daily, metfor min 1000 mg twice daily, phenytoin 100 mg 3 times daily, Flomax 0.4 mg daily, Alphagan 0.15 mg in eac h eye twice daily, Elizabeth-D 1 tablet at bedtime, lovastatin 40 mg at bedtime, and PreserVision AREDS 2 soft gel 1 twice daily. Family History: Positive for cancer in mother. Father with heart disease and congestive heart. Social History: Smoked in the past. Uses caffeinated beverages. No alcohol, current tobacco, or IV drug use. The patient does reside at home. He has a caregiver during the day and partly at night. His son does check on him frequently. Review of Systems: Diffuse weakness and significant weakness in the right lower extremity. The upper extremities are st keegan, but still diffusely weak and denies fevers or chills. He has mild myalgias and arthralgias. N o rash. No headache. No psychiatric issues. No dermatological issues. Physical Examination: Vital Signs: Blood pressure 134/74, pulse 82, respiratory rate 16, temperature 97.3, and oxygen satu ration 95% on room air. Weight 184 pounds, height 5 feet 10 and BMI is normal. General: Mr. Giron is resting in bed. He is in no significant distress. He does not have pain as he is not moving around and is lying in bed. HEENT: He appears normocephalic, atraumatic. Sclerae anicteric. Oropharynx is moist. Neck: Supple. Chest: Clear. Extremities: He has atrophy noted in the right lower extremity compared to the left and the right le g is outwardly rotated as he is lying on the bed due to significant weakness. He has again marked at rophy of the right leg and the thigh area compared to the left side. Neurologic: Sensory exam is decreased in the right lower extremity compared to the left lower extrem ity. He has intact sensation with stocking-glove loss in the right and left upper extremities. Refl ex is absent in the right knee, 1 to 2 in the left. Coordination is intact in the upper extremities. Assessment: Mr. Giron is an 87-year-old patient with likely chronic effects of polio with impacting h is right lower extremity. He has fallen and has a pelvic fracture, which was seen on CT scan of the chest, abdomen, and pelvis. The fracture is nondisplaced of right pubic symphysis. Imaging of the f emur shows mild osteoarthritis and diffuse osteopenia, but no femur fracture and hip MRI on 07/16 godwin s confirm the nondisplaced fracture involving the right pubic ramus symphysis and inferior pubic giovanna s. He is significantly debilitated at this point and is a 2 person transfer for mobilization. His l evel of care requirement is difficult for him to meet in an acute inpatient setting given the marked need to be able to lift and to transfer. He will require a long recovery phase and is safest in a [facility] nursing facility. Plan: 1.The patient should have long-term rehabilitation and correction. 2.He has comorbid conditions including hypertension for which he should continue with his current re gimen. Pain may be mitigated with gabapentin 100 mg twice a day to start with, may titrate upwards a s needed. He is on Ultram 50 mg 3 times daily as well. He should be maintained on deep vein thrombo sis prophylaxis, currently he is on Lovenox 40 mg daily. MARCIANO/TERRY Voice ID: [id number] Report ID: [id number]
[2022-07-19] MEDS: INSULIN -REGULAR HUMAN 50 UNIT/0.5 ML ML SQ SCH ×4 (07:30→20:22)
[2022-07-19] MEDS: ASPIRIN 81 MG CHEWABLE TABLET PO SCH (09:20)
[2022-07-19] MEDS: ENOXAPARIN 40 MG/0.4 ML SQ SCH (09:20)
--- NOTE | 2022-07-19 10:49 | P.PN ---
Subjective Date of Service: 07/19/22 Chief Complaint: Right hip pain Patient has no new complaint. 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 At baseline patient has been ambulated with a rollator but drags his right foot along. Physical Examination - Vital Signs Temperature: 97.4 F Blood Pressure: 122/72 Pulse: 92 Respirations: 16 Pulse Ox (%): 95 Assessment And Plan - Current Problems (Diagnosis) (1) Fall Current Visit: Yes Status: Acute (2) Pelvic fracture Current Visit: Yes Status: Acute (3) BPH (benign prostatic hyperplasia) Onset Date: 11/24/16 Current Visit: No Status: Chronic Qualifiers: Lower urinary tract symptom presence: unspecified whether lower urinary tract symptoms present Qualified Code(s): N40.0 - Benign prostatic hyperplasia without lower urinary tract symptoms (4) Diabetes mellitus Onset Date: 11/24/16 Current Visit: No Status: Chronic Qualifiers: (5) Hypertension Onset Date: 11/24/16 Current Visit: No Status: Chronic (6) Seizure disorder Onset Date: 11/24/16 Current Visit: No Status: Chronic - Plan Physical Exam General: Alert, In no apparent distress, Oriented x3, obese. Respiratory: Clear to auscultation bilaterally, Normal air movement Cardiovascular: No edema, Regular rate/rhythm, Normal S1 S2 Gastrointestinal: Normal bowel sounds, Non-distended, No tenderness Integumentary: No rashes, No breakdown, No significant lesion Neurological: Normal speech, right leg weakness. Plan: MRI of the pelvis: nondisplaced fracture involving the right pubic symphysis and inferior pubic ramus Continue pain management. Premedicate before PT Currently two-person assist. Continue PT Neurology input regarding history of polio with increased right lower extremity weakness appreciated. Continue home medications for diabetes, hypertension, BPH, hyperlipidemia and history of seizures. Lovenox for DVT prophylaxis. Anticipating skilled rehab placement.
[2022-07-19] MEDS: ATORVASTATIN 10 MG TAB PO SCH (20:26)
[2022-07-19] MEDS: PHENYTOIN ER 100 MG CAP PO SCH (20:26)
[2022-07-20] MEDS: INSULIN -REGULAR HUMAN 50 UNIT/0.5 ML ML SQ SCH ×4 (07:30→20:52)
[2022-07-20] MEDS ORDERED: ASPIRIN 81 MG CHEWABLE TABLET PO SCH (09:00)
[2022-07-20] MEDS: TAMSULOSIN 0.4 MG SR CAP PO SCH (09:24)
[2022-07-20] MEDS: ENOXAPARIN 40 MG/0.4 ML SQ SCH (09:24)
[2022-07-20] MEDS: ASPIRIN 81 MG CHEWABLE TABLET PO SCH (09:24)
--- NOTE | 2022-07-20 11:22 | P.PN ---
Subjective Date of Service: 07/20/22 Chief Complaint: Right hip pain No new complaint. Patient was seen sitting in a chair today. He states his pelvic pain is much better. Physical Examination - Vital Signs Temperature: 97.9 F Blood Pressure: 141/77 Pulse: 89 Respirations: 16 Pulse Ox (%): 91 Assessment And Plan - Current Problems (Diagnosis) (1) Fall Current Visit: Yes Status: Acute (2) Pelvic fracture Current Visit: Yes Status: Acute (3) BPH (benign prostatic hyperplasia) Onset Date: 11/24/16 Current Visit: No Status: Chronic Qualifiers: Lower urinary tract symptom presence: unspecified whether lower urinary tract symptoms present Qualified Code(s): N40.0 - Benign prostatic hyperplasia without lower urinary tract symptoms (4) Diabetes mellitus Onset Date: 11/24/16 Current Visit: No Status: Chronic Qualifiers: (5) Hypertension Onset Date: 11/24/16 Current Visit: No Status: Chronic (6) Seizure disorder Onset Date: 11/24/16 Current Visit: No Status: Chronic - Plan Physical Exam General: NAD, Oriented x3. Respiratory: Clear to auscultation bilaterally, Normal air movement Cardiovascular: No edema, Regular rate/rhythm, Normal S1 S2 Gastrointestinal: Normal bowel sounds, Non-distended, No tenderness Integumentary: No rashes, No breakdown, No significant lesion Neurological: Normal speech, right leg weakness. Plan: MRI of the pelvis: nondisplaced fracture involving the right pubic symphysis and inferior pubic ramus Continue pain management. Premedicate before PT Currently two-person assist. Continue PT Neurology input regarding history of polio with increased right lower extremity weakness appreciated. Continue home medications for diabetes, hypertension, BPH, hyperlipidemia and history of seizures. Lovenox for DVT prophylaxis. Constipation prophylaxis with senna and MiraLAX Disposition: skilled rehab.
[2022-07-20] MEDS: ATORVASTATIN 10 MG TAB PO SCH (20:51)
[2022-07-20] MEDS: PHENYTOIN ER 100 MG CAP PO SCH (20:52)
[2022-07-20 23:39] VITALS: O2SAT 95
[2022-07-21 06:59] LABS: Magnesium 2.2 mg/dL (1.6-2.4); Phosphorus 2.7 mg/dL (2.5-4.9)
[2022-07-21] MEDS: INSULIN -REGULAR HUMAN 50 UNIT/0.5 ML ML SQ SCH ×2 (07:30→11:30)
[2022-07-21] MEDS: ENOXAPARIN 40 MG/0.4 ML SQ SCH (08:21)
[2022-07-21] MEDS: TAMSULOSIN 0.4 MG SR CAP PO SCH (08:21)
[2022-07-21] MEDS: ASPIRIN 81 MG CHEWABLE TABLET PO SCH (08:21)
[2022-07-21 08:26] VITALS: BP 139/61; TEMP 97.1
--- NOTE | 2022-07-21 09:30 | P.DS ---
Admission Date: 07/16/22 Discharge Date: 07/21/22 Disposition: TRANSFER TO SNF - REHAB Discharge Condition: FAIR Reason for Admission: Right hip pain - Problems (1) Fall Current Visit: Yes Status: Acute (2) Pelvic fracture Current Visit: Yes Status: Acute (3) BPH (benign prostatic hyperplasia) Onset Date: 11/24/16 Current Visit: No Status: Chronic Qualifiers: Lower urinary tract symptom presence: unspecified whether lower urinary tract symptoms present Qualified Code(s): N40.0 - Benign prostatic hyperplasia without lower urinary tract symptoms (4) Diabetes mellitus Onset Date: 11/24/16 Current Visit: No Status: Chronic Qualifiers: (5) Hypertension Onset Date: 11/24/16 Current Visit: No Status: Chronic (6) Seizure disorder Onset Date: 11/24/16 Current Visit: No Status: Chronic (7) Hyponatremia Onset Date: 11/24/16 Current Visit: No Status: Acute Brief History of Present Illness: Patient is 87-year-old male with a past medical history significant for DM 2, HLD, hypertension, seizures, polio, BPH who presented with complaint of right hip pain. Patient rated pain as 8/10 in severity and described pain as aching in quality. Caregiver reported that patient is able to ambulate with a walker but patient fell twice because of right lower extremity weakness. He has a baseline history of polio with right leg atrophy and weakness. Patient denied hitting his head or losing consciousness. Initial imaging in the ED did not show any fracture. Patient was hospitalized for further management. Hospital Course: Patient admitted to the medical floor for pain management and physical therapy MRI of the pelvis showed nondisplaced fracture involving the right pubic symphysis and inferior pubic ramus Currently significant assistance to transfer. Patient seen and evaluated by PT. Neurology also saw patient regarding history of polio with increased right lower extremity weakness appreciated. Physical therapy recommended by neurology. Continued home medications for diabetes, hypertension, BPH, hyperlipidemia and history of seizures. Constipation prophylaxis with senna and MiraLAX. Patient has been accepted to skilled rehab-[facility]. Vitals are stable for discharge. Vital Signs/Physical Exam: Temp Pulse Resp BP Pulse Ox 97.1 F 80 14 139/61 94 07/21/22 08:00 07/21/22 08:00 07/21/22 08:00 07/21/22 08:00 07/21/22 08:00 General: Alert, In no apparent distress, Oriented x3 HEENT: Mucous membr. moist/pink Neck: Supple, JVD not distended Respiratory: Clear to auscultation bilaterally, Normal air movement Cardiovascular: No edema, Regular rate/rhythm, Normal S1 S2, No murmurs Gastrointestinal: Normal bowel sounds, Soft and benign, Non-distended, No tenderness Musculoskeletal: No swelling, Other (Right lower extremity atrophy compared to the left.) Integumentary: No rashes, No cyanosis Neurological: Other (Right leg weakness) Laboratory Data at Discharge: WBC 6.20 thou/uL (4.3-10.9) 07/17/22 02:55 Hgb 12.3 g/dL (13.6-17.9) L 07/17/22 02:55 Hct 35.9 % (39.6-49.0) L 07/17/22 02:55 Plt Count 194 thou/uL (152-406) 07/17/22 02:55 PT 10.9 SECONDS (9.5-12.5) 07/16/22 10:55 INR 0.99 07/16/22 10:55 Sodium 131 mEq/L (136-145) L 07/21/22 03:17 Potassium 4.0 mEq/L (3.5-5.1) 07/21/22 03:17 BUN 17 mg/dL (7-18) 07/21/22 03:17 Creatinine 0.60 mg/dL (0.70-1.30) L 07/21/22 03:17 Glucose 142 mg/dL (74-106) H 07/21/22 03:17 Phosphorus 2.7 mg/dL (2.5-4.9) 07/21/22 03:17 Magnesium 2.2 mg/dL (1.6-2.4) 07/21/22 03:17 Total Bilirubin 0.3 mg/dL (0.2-1.0) 07/16/22 10:55 AST 24 U/L (15-37) 07/16/22 10:55 ALT 24 U/L (16-61) 07/16/22 10:55 Alkaline Phosphatase 128 U/L (45-117) H 07/16/22 10:55 Lipase 21 U/L (13-75) 07/16/22 10:55 Home Medications: Aspirin 81 mg PO DAILY 07/16/22 Lovastatin 10 mg PO BEDTIME 07/16/22 Metformin HCl [Glucophage*] 1 tab PO DAILY 07/16/22 Phenytoin Sodium Extended [Phenytek] 300 mg PO BEDTIME 07/16/22 Tamsulosin HCl [Flomax] 1 tab PO DAILY 07/16/22 Hydrocodone 5/APAP 325 [[place] 5/325] 1 tab PO Q6H PRN #12 tab 07/21/22 New Medications: Hydrocodone 5/APAP 325 [[place] 5/325] 1 tab PO Q6H PRN #12 tab PRN Reason: Pain Diet: ADA Activity: Ad fabian Followup: NONE,NONE [Primary Care Provider] - 1-2 Weeks Time spent managing pt's care (in minutes): 33
== END 2022-07-21 12:48 | DRG 536 ==
LOC: ER 09:57 → ERHOLD 15:04 → 2ND 16:11
PROVIDERS: ADMIT Internal Medicine Nephrology; ATTEND Internal Medicine
DX: S32.591A Other specified fracture of right pubis, initial encounter for closed fracture (principal); E87.1 Hypo-osmolality and hyponatremia; S32.501A Unspecified fracture of right pubis, initial encounter for closed fracture; E78.5 Hyperlipidemia, unspecified; N40.0 Benign prostatic hyperplasia without lower urinary tract symptoms; I12.9 Hypertensive chronic kidney disease with stage 1 through stage 4 chronic kidney disease, or unspecified chronic kidney disease; N18.2 Chronic kidney disease, stage 2 (mild); E11.22 Type 2 diabetes mellitus with diabetic chronic kidney disease; E11.39 Type 2 diabetes mellitus with other diabetic ophthalmic complication; D63.1 Anemia in chronic kidney disease; D63.8 Anemia in other chronic diseases classified elsewhere; E66.9 Obesity, unspecified; H42 Glaucoma in diseases classified elsewhere; G40.909 Epilepsy, unspecified, not intractable, without status epilepticus; R29.6 Repeated falls; Z60.2 Problems related to living alone; Z88.5 Allergy status to narcotic agent; Z90.49 Acquired absence of other specified parts of digestive tract; Z68.26 Body mass index [BMI] 26.0-26.9, adult; Z79.84 Long term (current) use of oral hypoglycemic drugs; Z79.82 Long term (current) use of aspirin; Z79.899 Other long term (current) drug therapy; Z87.891 Personal history of nicotine dependence; Z20.822 Contact with and (suspected) exposure to COVID-19; W18.30XA Fall on same level, unspecified, initial encounter; Y93.9 Activity, unspecified; Y92.9 Unspecified place or not applicable
CPT/HCPCS: 36415; 70450; 71045; 71250; 72125; 72170; 80048; 80076; 81001; 82947; 83690; 83735; 83880; 84100; 84484; 85025; 85610; 86850; 86900; 86901; 93005; 96360; 96361; 97162; 97530; 99285; J1650; J2270; J2405; J7030; U0003

== ENCOUNTER 2023-11-21 06:57 | Inpatient (IN) | payer OTHER, MEDICARE ==
--- OUTSIDE RECORDS SUMMARY | 2023-11-21 07:02 | XMS REPORT | Continuity of Care Document ---
Author Name Unknown Address [address] [facility] [address] [place] [address] [facility] thconnect Address [address] [facility] [address] [place] [address] Care Team Providers Care Occupational Therapy Assistant Name Role Phone Adam Cortes Attending Clinician Unavailable Problems Condition Name Condition Details Condition Category Status Onset Date Resolution Date Last Treatment Date Treating Clinician Comments Source [id number] Subclinica l hypothyroi dism Problem [facility] Essential hypertensi on Essential (primary) hypertensi on Problem [facility] Hyperglyce chad due to type 2 diabetes mellitus Type 2 diabetes mellitus with hyperglyce chad Problem [facility] Left side sciatica Sciatica, left side Problem [facility] [id number] History of post-polio syndrome Problem [facility] [id number] Benign prostatic hyperplasi a with lower urinary tract symptoms Problem [facility] Sciatica Sciatica of left side Problem [facility] [id number] Type 2 diabetes mellitus with hyperglyce chad, without long-term current use of insulin Problem [facility] [id number] Seizure disorder Problem [facility] [id number] Other obstructiv e and reflux uropathy Problem [facility] Peripheral venous insufficie ncy Venous insufficie ncy (chronic) (periphera l) Problem [facility] Osteoarthr itis Polyosteoa rthritis, unspecifie d Problem [facility] 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 Problem [facility] [id number] Squamous cell carcinoma of skin Problem [facility] [id number] Mixed hyperlipid emia Problem [facility] Social History Social Habit Start Date Stop Date Quantity Comments Source History of Tobacco Use [facility] Sex Assigned At [facility] Smoking Status Start Date Stop Date Source Never Smoker [facility] Medications Ordered Medication Name Filled Medication Name Start Date Stop Date Current Medication? Ordering Clinician Indication Dosage Frequency Signature (SIG) Comments Components Source Amoxicillin -Pot Clavulanate 875-125 MG Amoxicillin -Pot Clavulanate 875-125 MG 2024-0 7 00:00: 00 No 1{table t} BID Amoxicilli n-Pot Clavulanat e 875-125 MG Aspirin Adult Low Dose 81 MG Aspirin Adult Low Dose 81 MG No 1{table t} QD Aspirin Adult Low Dose 81 MG Multivitami n - Multivitami n - No 1{table t} QD Multivitam in - Elizabeth Allergy 60 MG Elizabeth Allergy 60 MG No 1{table t} BID Elizabeth Allergy 60 MG Phenytoin Sodium Extended 100 MG Phenytoin Sodium Extended 100 MG No BID Phenytoin Sodium Extended 100 MG Metformin HCl 500 MG Metformin HCl 500 MG No 1{table t_with_ meals} QD Metformin HCl 500 MG Lovastatin 10 MG Lovastatin 10 MG No QD Lovastatin 10 MG Benzonatate 200 MG Benzonatate 200 MG No 1{capsu le} TID Benzonatat e 200 MG Azithromyci n 250 MG Azithromyci n 250 MG No QD Azithromyc in 250 MG Albuterol Sulfate HFA 108 (90 Base) MCG/ACT Albuterol Sulfate HFA 108 (90 Base) MCG/ACT No 2{puff_ as_need ed} 6xD Albuterol Sulfate HFA 108 (90 Base) MCG/ACT Simbrinza 1-0.2 % Simbrinza 1-0.2 % No 1{drop_ into_af fected_ eye} TID Simbrinza 1-0.2 % Nystatin - Nystatin - No Nystatin - Metformin HCl 1000 MG Metformin HCl 1000 MG No 1{table t_with_ meals} BID Metformin HCl 1000 MG Gabapentin 600 MG Gabapentin 600 MG No 2{table t} BID Gabapentin 600 MG Lovastatin 20 MG Lovastatin 20 MG No QD Lovastatin 20 MG Tamsulosin HCl 0.4 MG Tamsulosin HCl 0.4 MG No 1{capsu le} BID Tamsulosin HCl 0.4 MG Phenytoin Sodium Extended 300 MG Phenytoin Sodium Extended 300 MG No 1{capsu le} QD Phenytoin Sodium Extended 300 MG Immunizations Ordered Immunization Name Filled Immunization Name Date Status Comments Source Flucelvax - single dose syringe Flucelvax - single dose syringe 2022-01-14 11:17:00 Completed [facility] Flucelvax - single dose syringe Flucelvax - single dose syringe 2022-01-14 11:17:00 Completed [facility] Flucelvax - single dose syringe Flucelvax - single dose syringe 2022-01-14 11:17:00 Completed [facility] Flucelvax - single dose syringe Flucelvax - single dose syringe 2022-01-14 11:17:00 Completed [facility] Flucelvax - single dose syringe Flucelvax - single dose syringe 2022-01-14 11:17:00 Completed [facility] Flucelvax - single dose syringe Flucelvax - single dose syringe 2022-01-14 11:17:00 Completed [facility] Flucelvax - single dose syringe Flucelvax - single dose syringe 2022-01-14 11:17:00 Completed [facility] Prevnar 13 (PCV13) Prevnar 13 (PCV13) 2021-01-27 10:33:00 Completed [facility] Prevnar 13 (PCV13) Prevnar 13 (PCV13) 2021-01-27 10:33:00 Completed [facility] Prevnar 13 (PCV13) Prevnar 13 (PCV13) 2021-01-27 10:33:00 Completed [facility] Prevnar 13 (PCV13) Prevnar 13 (PCV13) 2021-01-27 10:33:00 Completed [facility] Prevnar 13 (PCV13) Prevnar 13 (PCV13) 2021-01-27 10:33:00 Completed [facility] Prevnar 13 (PCV13) Prevnar 13 (PCV13) 2021-01-27 10:33:00 Completed [facility] Prevnar 13 (PCV13) Prevnar 13 (PCV13) 2021-01-27 10:33:00 Completed [facility] Prevnar 13 (PCV13) Prevnar 13 (PCV13) 2021-01-27 10:33:00 Completed [facility] Prevnar 13 (PCV13) Prevnar 13 (PCV13) 2021-01-27 10:33:00 Completed [facility] Prevnar 13 (PCV13) Prevnar 13 (PCV13) 2021-01-27 10:33:00 Completed [facility] Prevnar 13 (PCV13) Prevnar 13 (PCV13) 2021-01-27 10:33:00 Completed [facility] Prevnar 13 (PCV13) Prevnar 13 (PCV13) 2021-01-27 10:33:00 Completed [facility] Prevnar 13 (PCV13) Prevnar 13 (PCV13) 2021-01-27 10:33:00 Completed [facility] Prevnar 13 (PCV13) Prevnar 13 (PCV13) 2021-01-27 10:33:00 Completed [facility] FluAD FluAD 2021-01-27 10:32:00 Completed [facility] FluAD FluAD 2021-01-27 10:32:00 Completed [facility] FluAD FluAD 2021-01-27 10:32:00 Completed [facility] FluAD FluAD 2021-01-27 10:32:00 Completed [facility] FluAD FluAD 2021-01-27 10:32:00 Completed [facility] FluAD FluAD 2021-01-27 10:32:00 Completed [facility] FluAD FluAD 2021-01-27 10:32:00 Completed [facility] FluAD FluAD 2021-01-27 10:32:00 Completed [facility] FluAD FluAD 2021-01-27 10:32:00 Completed [facility] FluAD FluAD 2021-01-27 10:32:00 Completed [facility] FluAD FluAD 2021-01-27 10:32:00 Completed [facility] FluAD FluAD 2021-01-27 10:32:00 Completed [facility] FluAD FluAD 2021-01-27 10:32:00 Completed [facility] FluAD FluAD 2021-01-27 10:32:00 Completed [facility] FluAD FluAD Unknown Completed [facility] Flucelvax - single dose syringe Flucelvax - single dose syringe Unknown Completed [facility] Prevnar 13 (PCV13) Prevnar 13 (PCV13) Unknown Completed [facility] FluAD FluAD Unknown Completed [facility] Flucelvax - single dose syringe Flucelvax - single dose syringe Unknown Completed [facility] Prevnar 13 (PCV13) Prevnar 13 (PCV13) Unknown Completed [facility] FluAD FluAD Unknown Completed [facility] Flucelvax (ccIIV4) - SDS - 0.5mL Flucelvax (ccIIV4) - SDS - 0.5mL Unknown Completed [facility] Prevnar 13 (PCV13) Prevnar 13 (PCV13) Unknown Completed [facility] Vital Signs Vital Name Observation Time Observation Value Comments S ource height 2023-10-14 15:45:00 70.5 [in_i] Comm on [facility] weight 2023-10-14 15:45:00 225 [lb_av] Comm on [facility] temperature 2023-10-14 15:45:00 96.8 [degF] Com mon [facility] bmi 2023-10-14 15:45:00 31.82 kg/m2 [facility] oximetry 2023-10-14 15:45:00 94 % Com[facility] respiratory rate 2023-10-14 15:45:00 18 /min [facility] blood pressure systolic 2023-10-14 15:45:00 165 mm[Hg] [facility] blood pressure diastolic 2023-10-14 15:45:00 79 mm[Hg] [facility] height 2022-05-16 09:40:00 70.5 [in_i] Comm on [facility] weight 2022-05-16 09:40:00 170.0 [lb_av] Co mmon [facility] temperature 2022-05-16 09:40:00 96.0 [degF] Com mon [facility] bmi 2022-05-16 09:40:00 24.05 kg/m2 Comm [facility] oximetry 2022-05-16 09:40:00 99 % [facility] respiratory rate 2022-05-16 09:40:00 18 /min [facility] blood pressure systolic 2022-05-16 09:40:00 117 mm[Hg] [facility] blood pressure diastolic 2022-05-16 09:40:00 67 mm[Hg] [facility] height 2022-03-14 13:40:00 70.5 [in_i] Comm on [facility] weight 2022-03-14 13:40:00 170 [lb_av] Comm on [facility] temperature 2022-03-14 13:40:00 97.8 [degF] Com [facility] bmi 2022-03-14 13:40:00 24.05 kg/m2 Comm on [facility] oximetry 2022-03-14 13:40:00 99 % Com[facility] respiratory rate 2022-03-14 13:40:00 18 /min [facility] height 2022-01-14 10:50:00 70.5 [in_i] Comm [facility] weight 2022-01-14 10:50:00 186 [lb_av] Comm on [facility] temperature 2022-01-14 10:50:00 97.1 [degF] Com [facility] bmi 2022-01-14 10:50:00 26.31 kg/m2 Comm [facility] oximetry 2022-01-14 10:50:00 97 % Com[facility] respiratory rate 2022-01-14 10:50:00 16 /min [facility] blood pressure systolic 2022-01-14 10:50:00 138 mm[Hg] [facility] blood pressure diastolic 2022-01-14 10:50:00 73 mm[Hg] [facility] height 2021-11-15 11:20:00 70.5 [in_i] Comm on [facility] weight 2021-11-15 11:20:00 186 [lb_av] Comm on [facility] temperature 2021-11-15 11:20:00 97.5 [degF] Com [facility] bmi 2021-11-15 11:20:00 26.31 kg/m2 Comm [facility] oximetry 2021-11-15 11:20:00 97 % Commo [facility] respiratory rate 2021-11-15 11:20:00 16 /min [facility] blood pressure systolic 2021-11-15 11:20:00 139 mm[Hg] [facility] blood pressure diastolic 2021-11-15 11:20:00 67 mm[Hg] [facility] height 2021-10-10 10:40:00 70.5 [in_i] Comm on [facility] weight 2021-10-10 10:40:00 186 [lb_av] Comm on [facility] temperature 2021-10-10 10:40:00 97.6 [degF] Com [facility] bmi 2021-10-10 10:40:00 26.31 kg/m2 Comm [facility] oximetry 2021-10-10 10:40:00 96 % Com[facility] respiratory rate 2021-10-10 10:40:00 16 /min [facility] blood pressure systolic 2021-10-10 10:40:00 127 mm[Hg] [facility] blood pressure diastolic 2021-10-10 10:40:00 58 mm[Hg] [facility] height 2021-10-10 10:30:00 70.5 [in_i] [facility] weight 2021-10-10 10:30:00 186 [lb_av] Comm on [facility] temperature 2021-10-10 10:30:00 97.6 [degF] Com mon [facility] bmi 2021-10-10 10:30:00 26.31 kg/m2 Comm [facility] oximetry 2021-10-10 10:30:00 96 % Commo n [facility] respiratory rate 2021-10-10 10:30:00 16 /min [facility] blood pressure systolic 2021-10-10 10:30:00 127 mm[Hg] [facility] blood pressure diastolic 2021-10-10 10:30:00 58 mm[Hg] [facility] height 2021-08-29 10:00:00 70.5 [in_i] Comm on [facility] weight 2021-08-29 10:00:00 186.0 [lb_av] Co mmon [facility] temperature 2021-08-29 10:00:00 98.6 [degF] Com mon [facility] bmi 2021-08-29 10:00:00 26.31 kg/m2 Comm [facility] oximetry 2021-08-29 10:00:00 98 % Commo [facility] respiratory rate 2021-08-29 10:00:00 17 /min [facility] blood pressure systolic 2021-08-29 10:00:00 140 mm[Hg] [facility] blood pressure diastolic 2021-08-29 10:00:00 75 mm[Hg] [facility] Procedures Procedure Date / Time Performed Performing Clinicia n Source PVR 2023-10-14 00:00:00 [facility] Encounters Start Date/Time End Date/Time Encounter Type Admission Type Attending Clinicians Care Facility Care Department Encounter ID Source 2023-10-14 16:52:00 Outpatient Cortes, [facility] [id number] [facility] 2023-09-16 14:04:00 Outpatient Cortes, [facility] [id number] [facility] 2022-05-15 11:46:02 [id number] [facility] 2022-03-14 13:09:00 [facility] [id number] [facility] 2022-01-10 10:18:02 Outpatient Cortes, [facility] [id number] [facility] 2021-09-25 09:44:03 Outpatient Cortes, Adam [facility] [id number] [facility] 2021-08-29 09:40:04 Outpatient CortesAdam [facility] [id number] [facility] 2023-10-14 00:00:00 2023-10-14 00:00:00 OFFICE VISIT NEW PT LEVEL 4 [facility] [id number] [facility] 2022-07-16 00:00:00 2022-07-16 00:00:00 (TEL) [facility] [id number] [facility] 2022-05-16 00:00:00 2022-05-16 00:00:00 OFFICE VISIT ESTAB PT LEVEL 4 [facility] [id number] [facility] 2022-03-20 00:00:00 2022-03-20 00:00:00 (WEB) ST[facility]C ST[facility] [id number] [facility] 2022-03-14 00:00:00 2022-03-14 00:00:00 OFFICE VISIT EST PT LEVEL 3 [facility] [id number] [facility] 2022-03-14 00:00:00 2022-03-14 00:00:00 (TEL) STLMLC ST[facility] [id number] [facility] 2022-01-14 00:00:00 2022-01-14 00:00:00 OFFICE VISIT ESTAB PT LEVEL 4 [facility] ST[facility] [id number] [facility] 2022-01-14 00:00:00 2022-01-14 00:00:00 (TEL) ST[facility]C ST[facility] [id number] [facility] 2021-11-15 00:00:00 2021-11-15 00:00:00 (TEL) ST[facility]C ST[facility] [id number] [facility] 2021-11-15 00:00:00 2021-11-15 00:00:00 OFFICE VISIT ESTAB PT LEVEL 4 [facility] [id number] [facility] 2021-11-12 00:00:00 2021-11-12 00:00:00 (TEL) ST[facility]C ST[facility] [id number] [facility] 2021-10-10 00:00:00 2021-10-10 00:00:00 SUB ANNUAL [facility] VISIT STL[facility] STL[facility] [id number] [facility] 2021-10-10 00:00:00 2021-10-10 00:00:00 OFFICE VISIT ESTAB PT LEVEL 4 [facility] ST[facility] [id number] [facility] 2021-10-10 00:00:00 2021-10-10 00:00:00 (TEL) STL[facility]C ST[facility] [id number] [facility] 2021-08-29 00:00:00 2021-08-29 00:00:00 OFFICE VISIT NEW PT LEVEL 4 [facility] ST[facility] [id number] [facility]
[2023-11-21] MEDS ORDERED: ACETAMINOPHEN 500 MG TAB ONE (07:05)
[2023-11-21 07:41] LABS: Absolute Basophils 0.1 K/uL (0-0.5); Absolute Eosinophils 0.1 K/uL (0-0.5); Absolute Lymphocytes (CBC) 0.4 K/uL (0.7-4.9); Absolute Monocytes 0.5 K/uL (0.1-1.3); Absolute Neutrophil 8.9 K/uL (1.8-8.0); Basophils % 0.7 % (0-1.3); Eosinophils % 0.8 % (0-4.4); Hemoglobin 11.9 g/dL (13.6-17.9); Lymphocytes % 4.4 % (15.3-44.8); MCH 30.3 pg (27.0-35.0); MCV 91.8 fL (80-100); Monocytes % 4.8 % (3.3-12.3); Neutrophils % 89.3 % (41.7-73.7); Platelets 288 thou/uL (152-406); RBC Red Blood Cell Count 3.92 M/uL (4.33-5.43); Red Cell Distribution Width 14.4 % (12.1-15.2)
[2023-11-21 07:48] LABS: PTT, Activated Partial Thromb 30.7 SECONDS (24.3-36.9); Protime INR 1.07
[2023-11-21] MEDS ORDERED: HYDROCORTISONE SUC 100 MG INJ ONE (07:48)
[2023-11-21] MEDS ORDERED: Meropenem 1000 MG/VIAL IV ONE (07:48)
[2023-11-21] MEDS ORDERED: NA CHLORIDE 0.9% 250 ML ONE (07:48)
[2023-11-21] MEDS ORDERED: VANCOMYCIN 1 GM/VIAL ONE (07:48)
[2023-11-21] MEDS ORDERED: FAMOTIDINE 20 MG/2 ML VIAL IV ONE (07:48)
[2023-11-21] MEDS ORDERED: NA CHLORIDE 0.9% 0 ML ONE (07:49)
[2023-11-21] MEDS ORDERED: NA CHLORIDE 0.9% 2,000 ML ONE (07:49)
[2023-11-21 07:53] LABS: Specific Gravity 1.011 (1.005-1.030); Sqamous Epithelial None Seen /HPF (None Seen); Urine Bacteria <20 /HPF (<20); Urine Bilirubin NEGATIVE (Negative); Urine Blood 1+ (Negative); Urine Clarity Extremely Turbid (Clear); Urine Color Light-Orange (Yellow); Urine Culture Reflex Order REFLEXED; Urine Glucose TRACE (Negative); Urine Ketones NEGATIVE (Negative); Urine Microscopic Reflex YN ORDER UMIC; Urine Mucus Slight /HPF (None Seen); Urine Nitrite NEGATIVE (Negative); Urine Protein 1+ (Negative); Urine RBC 21-50 /HPF (None Seen); Urine Urobilinogen Normal (Normal); Urine WBC >50 /HPF (<5); Urine WBC Clump Many /HPF (None Seen); Urine pH 6.5 (5.0-7.0)
[2023-11-21] MEDS ORDERED: Levofloxacin500mg IV 500 MG/100 ML BAG IV ONE (08:04)
[2023-11-21 08:06] LABS: Albumin 3.2 g/dL (3.4-5.0); Albumin/Globulin Ratio 0.7 (1.1-1.8); Anion Gap 9.9 mEq/L (5.0-15.0); Bilirubin Direct 0.2 mg/dL (0-0.2); Bilirubin Indirect, Calculated 0.5 mg/dL (0.2-0.8); Bilirubin Total 0.7 mg/dL (0.2-1.0); Globulin 4.9 g/dL (2.3-3.5); Magnesium 1.9 mg/dL (1.6-2.4); Phenytoin (Dilantin) Level 28.6 mcg/mL (10.0-20.0); Potassium 3.9 mEq/L (3.5-5.1); Protein, Total 8.1 g/dL (6.4-8.2); Troponin High Sensitivity 8.2 pg/mL (<58.9)
--- NOTE | 2023-11-21 08:14 | RAD REPORT ---
EXAM DESCRIPTION: RAD - Chest Single View - 11/21/2023 7:46 am CLINICAL HISTORY: CHEST PAIN Chest pain. COMPARISON: <Comparisons> FINDINGS: Portable technique limits examination quality. Mild bilateral pulmonary opacities may represent pulmonary edema or infection. The heart is mildly en larged in size. No displaced fractures.
--- NOTE | 2023-11-21 08:17 | RAD REPORT ---
EXAM DESCRIPTION: CT - Head C Spine Cap Wo Con - 11/21/2023 7:57 am CLINICAL HISTORY: Trauma, head and neck injury. Chest, abdomen and pelvis pain. Declining state;Trauma COMPARISON: <Comparisons> TECHNIQUE: CT head without contrast. CT cervical spine without contrast with coronal and sagittal reformatted images. CT chest, abdomen and pelvis without contrast with coronal and sagittal reformatted images of the spi ne. All CT scans are performed using dose optimization technique as appropriate and may include automated exposure control or mA/KV adjustment according to patient size. FINDINGS: CT HEAD WITHOUT CONTRAST: No intracranial hemorrhage, hydrocephalus or extra-axial fluid collection. Mild generalized brain atr ophy. No areas of brain edema or midline shift. 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 Chronic left maxillary sinusitis. The calvarium is intact. CT CERVICAL SPINE WITHOUT CONTRAST: No fracture or subluxation. Mild midcervical degenerative changes. The prevertebral soft tissues are normal in thickness. CT CHEST, ABDOMEN, PELVIS WITHOUT CONTRAST: NOTE: Lack of contrast is a significant limitation in the assessment of trauma related findings. Spec ifically, solid organ, vascular and bowel evaluation is significantly limited. Patchy opacity is seen in the right lung base which could be atelectasis or infiltrate.No pneumothora x or pericardial/pleural fluid. No evidence of intra-abdominal visceral injury, free fluid or free air is seen within the above detai led limitations. Cholelithiasis. Alfonso catheter is place decompressing the urinary bladder. Mild sigmoid diverticulosis coli without d iverticulitis. No acute fracture demonstrated. Mild compression deformity of L2 vertebral body, chronic. IMPRESSION: Patchy opacity in the medial right lung base may represent atelectasis or infiltrate. Cholelithiasis. No acute trauma related abnormality seen.
[2023-11-21 08:27] LABS: Blood Morphology Comment NOT SEEN (NOT SEEN); Platelet Estimate ADEQ; White Blood Cell Scan OK (OK)
[2023-11-21 08:35] LABS: SARS-CoV-2 Antigen CONTROL BLUE LINE VIS/BG OK; SARS-CoV-2 Antigen Rapid Res Negative (Negative)
--- NOTE | 2023-11-21 08:37 | ER ---
Nurse's Notes [facility] Name: Mango Giron Age: 88 yrs Sex: Male : 1935 Arrival Date: 11/21/2023 Time: 06:57 Bed 16 Private MD: Diagnosis: Pneumonia due to other specified bacteria;Fever, unspecified;UTI/ Urinary tract infection, site not specified;Altered mental status, unspecified;Anemia, unspecified;Poisoning by hydantoin derivatives, accidental (unintentional), initial encounter;Type 2 diabetes mellitus with hyperglycemia Presentation: 11/20 07:00 Chief complaint: EMS states: custodial states that patient woke up this morning more ss confused than normal. Pt c/o chills and R knee pain. Coronavirus screen: Client denies travel out of the [place] in the last 14 days. Ebola Screen: Patient denies exposure to infectious person. Patient denies travel to an Ebola-affected area in the 21 days before illness onset. Initial Sepsis Screen: Does the patient meet any 2 criteria? HR > 90 bpm. Does the patient have a suspected source of infection? No. Patient's initial sepsis screen is negative. Risk Assessment: Do you want to hurt yourself or someone else? Patient reports no desire to harm self or others. Onset of symptoms was November 21, 2023. 07:00 Method Of Arrival: EMS: [facility] ss 07:00 Acuity: BARRON 3 ss Triage Assessment: 07:08 Neuro: Level of Consciousness is awake, alert, Oriented to person, place, time. ss Respiratory: Respiratory effort is even, unlabored. Historical: - Allergies: 07:07 Codeine; ss - PMHx: 07:07 Diabetes - NIDDM; enlarged prostate; Hypertension; Polio; Seizures; ss - Immunization history:: Adult Immunizations up to date. - Infectious Disease History:: Denies. - Social history:: Smoking status: Patient denies any tobacco usage or history of. Screenin:18 [facility] ED Fall Risk Assessment (Adult) History of falling in the last 3 months, kc6 including since admission No falls in past 3 months (0 pts) Confusion or Disorientation Yes (5 pts) Intoxicated or Sedated No (0 pts) Impaired Gait Yes (1 pt) Mobility Assist Device Used Yes (1 pt) Altered Elimination No (0 pt) Score/Fall Risk Level 3 or more points = High Risk. Abuse screen: Denies threats or abuse. Denies injuries from another. Nutritional screening: No deficits noted. Tuberculosis screening: No symptoms or risk factors identified. Assessment: 07:15 General: Appears in no apparent distress. uncomfortable, well groomed, well developed, kc6 Behavior is drowsy, restless. Pain: Unable to use pain scale. Patient is disoriented. Neuro: Level of Consciousness is obeys commands, confused, Oriented to person. Cardiovascular: Heart tones S1 S2 present Capillary refill < 3 seconds Rhythm is sinus tachycardia. Respiratory: Airway is patent Trachea midline Respiratory effort is even, unlabored, Respiratory pattern is regular, symmetrical. GI: No signs and/or symptoms were reported involving the gastrointestinal system. : No signs and/or symptoms were reported regarding the genitourinary system. EENT: No signs and/or symptoms were reported regarding the EENT system. Derm: No signs and/or symptoms reported regarding the dermatologic system. Skin is intact, is healthy with good turgor, Skin is pink, warm \T\ dry. Musculoskeletal: No signs and/or symptoms reported regarding the musculoskeletal system. Circulation, motion, and sensation intact. Capillary refill < 3 seconds, Range of motion: intact in all extremities. 08:22 Reassessment: Patient appears in no apparent distress at this time. No changes from kc6 previously documented assessment. Patient and/or family updated on plan of care and expected duration. Pain level reassessed. : Parent/caregiver report the patient having burning with urination since yesterday. 09:36 Reassessment: Patient appears in no apparent distress at this time. No changes from kc6 previously documented assessment. Patient and/or family updated on plan of care and expected duration. Pain level reassessed. 10:43 Reassessment: Patient appears in no apparent distress at this time. No changes from kc6 previously documented assessment. Patient and/or family updated on plan of care and expected duration. Pain level reassessed. 11:43 Reassessment: Patient appears in no apparent distress at this time. No changes from kc6 previously documented assessment. Patient and/or family updated on plan of care and expected duration. Pain level reassessed. 12:59 Reassessment: Patient appears in no apparent distress at this time. No changes from kc6 previously documented assessment. Patient and/or family updated on plan of care and expected duration. Pain level reassessed. Vital Signs: 07:00 BP 126 / 99; Pulse 118; Resp 18; Temp 100.1(O); Pulse Ox 100% on R/A; ss 08:20 BP 114 / 69; Pulse 103; Resp 19 S; Pulse Ox 95% on R/A; kc6 08:51 BP 112 / 56; Pulse 94; Resp 18 S; Temp 98.5(O); Pulse Ox 94% on R/A; Pain 0/10; kc6 09:36 BP 102 / 52; Pulse 90; Resp 18 S; Pulse Ox 95% on R/A; kc6 10:44 BP 110 / 56; Pulse 88; Resp 17 S; Pulse Ox 98% on R/A; kc6 12:59 BP 105 / 58; Pulse 75; Resp 19 S; Pulse Ox 95% on R/A; kc6 08:51 Pain Scale: Adult [facility] ED Course: 06:59 Patient arrived in ED. [facility] 07:00 Griselda Sheets RN is Primary Nurse. kc6 07:05 Dann Ren MD is Attending Physician. [facility] 07:07 Triage completed. ss 07:07 Arm band placed on right wrist. ss 07:18 Patient has correct armband on for positive identification. Placed in gown. Bed in low kc6 position. Call light in reach. Side rails up X2. block operator on. Pulse ox on. NIBP on. Door closed. Noise minimized. Lights dimmed. Warm blanket given. Pillow given. 07:18 Maintain EMS IV. Dressing intact. Good blood return noted. Site clean \T\ dry. Gauge \T\ yamile 6 site: 20G LFA. Flushed with 10 mL NS. 07:28 Initial lab(s) drawn, by me, sent to lab. First set of blood cultures drawn by me, EKG em1 done, by ED staff, COVID swab sent to lab. Flu and/or RSV swab sent to lab. Inserted saline lock: 20 gauge in right antecubital area, using aseptic technique. Blood collected. Flushed with 10 mL NS. 07:35 Basic Metabolic Panel Sent. em1 07:35 LFT's Sent. em1 07:35 Magnesium Sent. em1 07:35 NT PRO-BNP Sent. em1 07:35 Troponin HS Sent. em1 07:35 Blood Culture Adult (2) Sent. em1 07:35 CBC with Diff Sent. em1 07:35 Lactate w/ 2H reflex if indic. Sent. em1 07:35 Protime (+inr) Sent. em1 07:35 Ptt, Activated Sent. em1 07:35 Second set of blood cultures drawn by me. em1 07:41 Alfonso cath inserted, using sterile technique, 16 Fr., by nd, balloon inflated, to kc6 gravity drainage, clamped. urine specimen collected. returned cloudy urine. Patient tolerated well. 07:48 Chest Single View XRAY In Process Unspecified. EDMS 07:59 CT Traumagram (Head C Spine CAP wo con) In Process Unspecified. EDMS 08:33 Tena Weir MD is Hospitalizing Provider. [facility] 08:51 Diet: Patient given a heart healthy meal tray. Required assistance. kc6 12:15 Report given to Cecelia Yarbrough RN. kc6 Administered Medications: 07:19 Drug: Acetaminophen PO 1000 mg PO once Route: PO; kc6 08:50 Follow up: Response: No adverse reaction; Temperature is decreased kc6 07:49 CANCELLED (Duplicate Order): meropenem1 grams IV at per protocol once; (mix in NS 100 lashae mL) 08:19 Drug: NS 0.9% IV 1000 ml IV at 1 bolus Per protocol; 1000 mL bolus Route: IV; Rate: 1 kc6 bolus; Site: right antecubital; 10:43 Follow up: Response: No adverse reaction; IV Status: Completed infusion; IV Intake: kc6 1000ml 08:20 Drug: NS 0.9% IV 1000 ml IV at 1 bolus Per protocol; 1000 mL bolus Route: IV; Rate: 1 kc6 bolus; Site: right antecubital; 10:43 Follow up: Response: No adverse reaction; IV Status: Completed infusion; IV Intake: kc6 1000ml 08:20 Drug: vancoMYCIN IVPB 1 grams IVPB once over 2 hrs Route: IVPB; Infused Over: 2 hrs; kc6 Site: right antecubital; 09:35 Follow up: Response: No adverse reaction; IV Status: Completed infusion; IV Intake: kc6 250ml 08:20 Drug: Famotidine IVP 20 mg IVP once; dilute with 10 mL 0.9% NaCl; give over 2 minutes kc6 Route: IVP; Site: left antecubital; 08:45 Follow up: Response: No adverse reaction kc6 08:20 Drug: Solu-CORTEF IVP 100 mg IVP once Route: IVP; Site: left antecubital; kc6 08:45 Follow up: Response: No adverse reaction kc6 09:36 Drug: levofloxacin IVPB 500 mg 100 ml IVPB once over 60 mins Volume: 100 ml; Route: kc6 IVPB; Infused Over: 60 mins; Site: right antecubital; 10:43 Follow up: Response: No adverse reaction; IV Status: Completed infusion; IV Intake: kc6 100ml Intake: 09:35 IV: 250ml; Total: 250ml. kc6 10:43 IV: 100ml; Total: 350ml. kc6 10:43 IV: 1000ml; Total: 1350ml. kc6 10:43 IV: 1000ml; Total: 2350ml. kc6 Outcome: 08:36 Decision to Hospitalize by Provider. lashae 14:19 Patient left the ED. eb Signatures: Dispatcher [employer] EDDann Clark MD MD cha Martinez, Eric em1 Nelly Warren, RN RN Ora Agosto Kaitlyn, FIDEL RN kc6 Corrections: (The following items were deleted from the chart) 07:40 07:35 COMPREHENSIVE METABOLIC PANEL+C.LAB.BRZ drawn and sent. em1 LORE
--- NOTE | 2023-11-21 08:37 | EDPHYS ---
Physician Documentation [facility] Name: Mango Giron Age: 88 yrs Sex: Male : 1935 Arrival Date: 11/21/2023 Time: 06:57 Bed 16 Private MD: ED Physician Dann Ren HPI: 11/20 07:24 This 88 yrs old Male presents to ER via EMS with complaints of Altered Mental lashae Status. Historical: - Allergies: 07:07 Codeine; ss - PMHx: 07:07 Diabetes - NIDDM; enlarged prostate; Hypertension; Polio; Seizures; ss - Immunization history:: Adult Immunizations up to date. - Infectious Disease History:: Denies. - Social history:: Smoking status: Patient denies any tobacco usage or history of. ROS: 07:25 Eyes: Negative for injury, pain, redness, and discharge, ENT: Negative for injury, lashae pain, and discharge, Neck: Negative for injury, pain, and swelling, Cardiovascular: Negative for chest pain, palpitations, and edema, Abdomen/GI: Negative for abdominal pain, nausea, vomiting, diarrhea, and constipation, Back: Negative for injury and pain, : Negative for injury, bleeding, discharge, and swelling, MS/Extremity: Negative for injury and deformity, Skin: Negative for injury, rash, and discoloration, Psych: Negative for depression, anxiety, suicide ideation, homicidal ideation, and hallucinations, Allergy/Immunology: Negative for hives, rash, and allergies, Endocrine: Negative for neck swelling, polydipsia, polyuria, polyphagia, and marked weight changes, Hematologic/Lymphatic: Negative for swollen nodes, abnormal bleeding, and unusual bruising, 07:25 Constitutional: Positive for body aches, chills, fatigue, fever, malaise, poor PO intake, 07:25 Cardiovascular: Positive for palpitations, 07:25 Respiratory: Positive for cough, "sounds productive", 07:25 Neuro: Positive for altered mental status, weakness, Exam: 07:25 Head/Face: Normocephalic, atraumatic. Eyes: Pupils equal round and reactive to light, lashae extra-ocular motions intact. Lids and lashes normal. Conjunctiva and sclera are non-icteric and not injected. Cornea within normal limits. Periorbital areas with no swelling, redness, or edema. ENT: Nares patent. No nasal discharge, no septal abnormalities noted. Tympanic membranes are normal and external auditory canals are clear. Oropharynx with no redness, swelling, or masses, exudates, or evidence of obstruction, uvula midline. Mucous membranes moist. Neck: Trachea midline, no thyromegaly or masses palpated, and no cervical lymphadenopathy. Supple, full range of motion without nuchal rigidity, or vertebral point tenderness. No Meningismus. Chest/axilla: Normal chest wall appearance and motion. Nontender with no deformity. No lesions are appreciated. Abdomen/GI: Soft, non-tender, with normal bowel sounds. No distension or tympany. No guarding or rebound. No evidence of tenderness throughout. Back: No spinal tenderness. No costovertebral tenderness. Full range of motion. Male : Normal genitalia with no discharge or lesions. Skin: Warm, dry with normal turgor. Normal color with no rashes, no lesions, and no evidence of cellulitis. Psych: Awake, alert, with orientation to person, place and time. Behavior, mood, and affect are within normal limits. 07:25 Constitutional: The patient appears febrile, 07:25 ECG was reviewed by the Attending Physician. 07:25 Respiratory: the patient does not display signs of respiratory distress, Respirations: no acute changes, Breath sounds: bronchial sounds, that are moderate, decreased breath sounds, that are mild, Respiratory rate: 22 07:25 Musculoskeletal/extremity: ROM: limited active range of motion due to pain, limited passive range of motion due to pain, Circulation is intact in all extremities. Sensation intact. Compartment Syndrome exam of affected extremity: is normal. Weight bearing: is unable to bear weight, DVT Exam: pain, tenderness, erythema, increased warmth, of the right leg, of the left leg, of the right leg and left leg, Vital Signs: 07:00 BP 126 / 99; Pulse 118; Resp 18; Temp 100.1(O); Pulse Ox 100% on R/A; ss 08:20 BP 114 / 69; Pulse 103; Resp 19 S; Pulse Ox 95% on R/A; kc6 08:51 BP 112 / 56; Pulse 94; Resp 18 S; Temp 98.5(O); Pulse Ox 94% on R/A; Pain 0/10; kc6 09:36 BP 102 / 52; Pulse 90; Resp 18 S; Pulse Ox 95% on R/A; kc6 10:44 BP 110 / 56; Pulse 88; Resp 17 S; Pulse Ox 98% on R/A; kc6 12:59 BP 105 / 58; Pulse 75; Resp 19 S; Pulse Ox 95% on R/A; kc6 08:51 Pain Scale: Adult kc6 MDM: 07:[address] [facility] 07:28 Differential Diagnosis: CVA, electrolyte abnormality, hypoglycemia, intracranial bleed, lashae pneumonia, seizure, sepsis, TIA, UTI, volume depletion. Data reviewed: vital signs, nurses notes, EMS record, lab test result(s), EKG, radiologic studies, CT scan, plain films. Consideration of Admission/Observation Patient was admitted/placed on observation. Escalation of care including admission/observation considered. I considered the following discharge prescriptions or medication management in the emergency department Medications were administered in the Emergency Department. See MAR. Independent interpretation of the following test(s) in the Emergency Department EKG: See my EKG interpretation above. Test considered but Not performed: Ultrasound no abd usg. Historians other than the Patient: EMS: ems well informed. Care significantly affected by the following chronic conditions: Diabetes, Hypertension, Obesity, bph, seizures, polio. 11/20 07:00 Order name: Blood Culture Adult (2) [facility] 11/20 07:00 Order name: CBC with Diff; Complete Time: : [facility] 11/20 07:00 Order name: Lactate w/ 2H reflex if indic.; Complete Time: [facility] 11/20 07:00 Order name: Protime (+inr); Complete Time: [facility] 11/20 07:00 Order name: Ptt, Activated; Complete Time: : [facility] 11/20 07:00 Order name: Urinalysis w/ reflexes; Complete Time: : [facility] 11/20 07:22 Order name: Basic Metabolic Panel; Complete Time: : [facility] 11/20 07:22 Order name: LFT's; Complete Time: : [facility] 11/20 07:22 Order name: Magnesium; Complete Time: : [facility] 11/20 07:22 Order name: NT PRO-BNP; Complete Time: : [facility] 11/20 07:22 Order name: Troponin HS; Complete Time: : [facility] 11/20 07:22 Order name: SARS RAPID; Complete Time: 08:55 [facility] 11/20 07:22 Order name: Flu; Complete Time: 08:55 [facility] 11/20 07:52 Order name: CBC Smear Scan; Complete Time: 08:31 EDMS 11/20 07:58 Order name: Urine Culture EDMS 11/20 07:58 Order name: Phenytoin (Dilantin) Level; Complete Time: 08:31 EDMS 11/20 12:14 Order name: CBC with Automated Diff EDMS 11/20 12:14 Order name: CBC with Automated Diff EDMS 11/20 12:14 Order name: Comprehensive Metabolic Panel EDMS 11/20 12:14 Order name: Comprehensive Metabolic Panel EDMS 11/20 12:14 Order name: Troponin High Sensitivity EDMS 11/20 12:14 Order name: Troponin High Sensitivity EDMS 11/20 07:00 Order name: Chest Single View XRAY; Complete Time: 08:31 [facility] 11/20 07:25 Order name: CT Traumagram (Head C Spine CAP wo con); Complete Time: 08:31 [facility] 11/20 07:22 Order name: EKG; Complete Time: 07:23 [facility] 11/20 07:00 Order name: Accucheck; Complete Time: 07:41 [facility] 11/20 07:00 Order name: Cardiac monitoring; Complete Time: 07:03 [facility] 11/20 07:00 Order name: Cath; Complete Time: 07:41 [facility] 11/20 07:00 Order name: EKG - Nurse/Tech; Complete Time: 07:18 [facility] 11/20 07:00 Order name: IV Saline Lock - Large Bore; Complete Time: 07:35 [facility] 11/20 07:00 Order name: Labs collected and sent; Complete Time: 07:35 [facility] 11/20 07:00 Order name: O2 Per Protocol; Complete Time: 07:03 [facility] 11/20 07:00 Order name: O2 Sat Monitoring; Complete Time: 07:03 [facility] 11/20 07:00 Order name: Vital Signs; Complete Time: 07:03 [facility] 11/20 07:22 Order name: IV Saline Lock; Complete Time: 07:35 [facility] 11/20 07:22 Order name: IV Saline Lock - Large Bore; Complete Time: 07:35 [facility] EC:25 Rate is 118 beats/min. Rhythm is regular. QRS [place] is Normal. [place] interval is normal. lashae QRS interval is normal. QT interval is normal. No Q waves. T waves are Normal. No ST changes noted. Clinical impression: Sinus tachycardia and No evidence of ischemia. Interpreted by me. Reviewed by me. Administered Medications: 07:19 Drug: Acetaminophen PO 1000 mg PO once Route: PO; kc6 08:50 Follow up: Response: No adverse reaction; Temperature is decreased 6 07:49 CANCELLED (Duplicate Order): meropenem1 grams IV at per protocol once; (mix in NS 100 lashae mL) 08:19 Drug: NS 0.9% IV 1000 ml IV at 1 bolus Per protocol; 1000 mL bolus Route: IV; Rate: 1 kc6 bolus; Site: right antecubital; 10:43 Follow up: Response: No adverse reaction; IV Status: Completed infusion; IV Intake: kc6 1000ml 08:20 Drug: NS 0.9% IV 1000 ml IV at 1 bolus Per protocol; 1000 mL bolus Route: IV; Rate: 1 kc6 bolus; Site: right antecubital; 10:43 Follow up: Response: No adverse reaction; IV Status: Completed infusion; IV Intake: kc6 1000ml 08:20 Drug: vancoMYCIN IVPB 1 grams IVPB once over 2 hrs Route: IVPB; Infused Over: 2 hrs; kc6 Site: right antecubital; 09:35 Follow up: Response: No adverse reaction; IV Status: Completed infusion; IV Intake: kc6 250ml 08:20 Drug: Famotidine IVP 20 mg IVP once; dilute with 10 mL 0.9% NaCl; give over 2 minutes kc6 Route: IVP; Site: left antecubital; 08:45 Follow up: Response: No adverse reaction 6 08:20 Drug: Solu-CORTEF IVP 100 mg IVP once Route: IVP; Site: left antecubital; kc6 08:45 Follow up: Response: No adverse reaction [facility] 09:36 Drug: levofloxacin IVPB 500 mg 100 ml IVPB once over 60 mins Volume: 100 ml; Route: kc6 IVPB; Infused Over: 60 mins; Site: right antecubital; 10:43 Follow up: Response: No adverse reaction; IV Status: Completed infusion; IV Intake: kc6 100ml Disposition Summary: 11/21/23 08:36 Hospitalization Ordered Notes: Hospitalization Status: Inpatient Admission lashae Provider: Tena Weir cha Location: Telemetry/MedSurg (Inpatient) lashae Condition: Fair lashae Problem: new lashae Symptoms: have improved lashae Bed/Room Type: Standard [facility] Room Assignment: 207(11/21/23 12:28) eb Diagnosis - Pneumonia due to other specified bacteria lashae - Fever, unspecified lashae - UTI/ Urinary tract infection, site not specified lashae - Altered mental status, unspecified lashae - Anemia, unspecified lashae - Poisoning by hydantoin derivatives, accidental (unintentional), initial encounter lashae - Type 2 diabetes mellitus with hyperglycemia lashae Forms: - Medication Reconciliation Form lashae - SBAR form lashae - Leadership Thank You Letter lashae Signatures: Dispatcher [employer] EDMS Dann Ren MD MD cha Blanchard, Shelby RN RN ss Ora Yi Kaitlyn, RN RN kc6 Pedrito Gallegos MD MD sp4 Corrections: (The following items were deleted from the chart) 07:01 07:01 BLOOD CULTURE*+BA.LAB.BRZ ordered. EDMS EDMS 07:01 07:01 CBC+H.LAB.BRZ ordered. EDMS EDMS 07:01 07:01 LACTATE+C.LAB.BRZ ordered. EDMS EDMS 07:01 07:01 PROTIME (+INR)+COAG.LAB.BRZ ordered. EDMS EDMS 07:01 07:01 PTT, ACTIVATED+COAG.LAB.BRZ ordered. EDMS EDMS 07:01 07:01 Urinalysis+U.LAB.BRZ ordered. EDMS EDMS 07:01 07:01 Chest Single View+RAD.RAD.BRZ ordered. EDMS EDMS 07:25 07:25 Head C Spine Cap Wo Con+CT.RAD.BRZ ordered. EDMS EDMS 07:40 07:01 COMPREHENSIVE METABOLIC PANEL+C.LAB.BRZ ordered. EDMS EDMS 07:49 07:22 Meropenem IV 1 grams IV at per protocol once; (mix in NS 100 mL) ordered. lashae lashae 07:58 07:50 PHENYTOIN (DILANTIN)+C.LAB.BRZ ordered. EDMS EDMS 12:28 08:36 lashae eb
[2023-11-21] MEDS ORDERED: ONDANSETRON 4 MG/2 ML VIAL IV PRN (12:09)
[2023-11-21] MEDS ORDERED: MORPHINE 2 MG/ML SYR IV PRN (12:09)
--- NOTE | 2023-11-21 12:16 | P.HP ---
Certification for Inpatient Patient admitted to: Inpatient With expected LOS: >2 Midnights Patient will require the following post-hospital care: None Practitioner: I am a practitioner with admitting privileges, knowledge of patient current condition, hospital course, and medical plan of care. Services: Services provided to patient in accordance with Admission requirements found in Title 42 Section 412.3 of the Code of Federal Regulations Patient History Date of Service: 11/21/23 Reason for admission: AMS/UTI History of Present Illness: Patient is an 88-year-old gentleman came to the hospital with altered mental status. Patient with urinary tract infection and pneumonia. Patient came in with confusion. Patient lives at [facility] with a history of polio. 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 He has been at the nursing facility since he broke his pelvis. He had a pelvic fracture and went to [facility] for rehab. Since that time he has not really been able to ambulate. Patient clinically is confused at this time but his vital signs are stable. Patient will be admitted to the hospital for observation. Patient with UTI with po ssible pneumonia with toxic encephalopathy. Allergies codeine Adverse Reaction (Verified 04/19/18 00:04) Nausea/Vomiting Home Medications: Aspirin 81 mg PO DAILY 07/16/22 Lovastatin 10 mg PO BEDTIME 07/16/22 Metformin HCl [Glucophage*] 1 tab PO DAILY 07/16/22 Phenytoin Sodium Extended [Phenytek] 300 mg PO BEDTIME 07/16/22 Tamsulosin HCl [Flomax] 1 tab PO DAILY 07/16/22 Hydrocodone 5/APAP 325 [[place] 5/325] 1 tab PO Q6H PRN #12 tab 07/21/22 - Past Medical/Surgical History Diabetic: Yes -: Diabetes mellitus type 2 -: BPH -: Cataracts/glaucoma -: History of polio -: Seizure disorder -: Cataracts/glaucoma -: Appendectomy -: Right foot surgery -: Sinus surgery Psychosocial/ Personal History: The patient is of 55 years. He has 3 children. - Family History Mother Medical History: Cancer Father Medical History: Heart disease Notes: CHF - Social History Smoking Status: Former smoker (Secondhand smoke from his ) Alcohol use: No CD- Drugs: No Caffeine use: Yes Review of Systems is unable to be obtained Physical Examination - Physical Exam General: Alert, In no apparent distress, Confused HEENT: Atraumatic, PERRLA, Mucous membr. moist/pink, EOMI, Sclerae nonicteric Neck: Supple, 2+ carotid pulse no bruit, No LAD, Without JVD or thyroid abnormality Respiratory: Clear to auscultation bilaterally, Normal air movement Cardiovascular: Regular rate/rhythm, Normal S1 S2 Gastrointestinal: Normal bowel sounds, Soft and benign, Non-distended, No tenderness Musculoskeletal: No clubbing, No swelling, No tenderness Integumentary: No rashes Neurological: Normal tone, Sensation intact, Cranial nerves 3-12 intact, Abnormal gait, Abnormal speech, Abnormal strength Lymphatics: No axilla or inguinal lymphadenopathy - Studies Laboratory Data (last 24 hrs) 11/21/23 11/21/23 11/21/23 07:28 07:28 07:28 WBC 9.90 Hgb 11.9 L Hct 36.0 L Plt Count 288 PT 12.0 INR 1.07 APTT 30.7 Sodium 133 L Potassium 3.9 BUN 11 Creatinine 0.84 Glucose 202 H Magnesium 1.9 Total Bilirubin 0.7 AST 20 ALT 20 Alkaline Phosphatase 138 H 11/21/23 07:00 WBC Hgb Hct Plt Count PT INR APTT Sodium Cancelled Potassium Cancelled BUN Cancelled Creatinine Cancelled Glucose Cancelled Magnesium Total Bilirubin Cancelled AST Cancelled ALT Cancelled Alkaline Phosphatase Cancelled Microbiology Data (last 24 hrs): 11/21/23 07:28 Nasopharnyx Influenza Type A Antigen Screen - Final 11/21/23 07:28 Nasopharnyx Influenza Type B Antigen Screen - Final Assessment & Plan - Problems (Diagnosis) (1) UTI (urinary tract infection) Current Visit: Yes Status: Acute (2) Healthcare associated bacterial pneumonia Current Visit: Yes Status: Acute (3) History of poliomyelitis Current Visit: Yes Status: Acute (4) Pelvic fracture Current Visit: No Status: Acute (5) BPH (benign prostatic hyperplasia) Onset Date: 11/24/16 Current Visit: No Status: Chronic Qualifiers: (6) Diabetes mellitus Onset Date: 11/24/16 Current Visit: No Status: Chronic Qualifiers: (7) Hypertension Onset Date: 11/24/16 Current Visit: No Status: Chronic (8) Seizure disorder Onset Date: 11/24/16 Current Visit: No Status: Chronic - Plan Plan: 1. Continue with IV antibiotics 2. Awaiting sputum and blood culture 3. Repeat chest x-ray 4. CT scan of the chest if pneumonia is not improving- 5. Repeat UA with microscopy 6. Continue with nebs as needed 7. O2 per protocol 8. Continue with gentle hydration 9. Repeat labs including CBC and renal function in a.m. 10. GI and DVT prophylaxis Discharge Plan: Home Plan to discharge in: Greater than 2 days - Advance Directives Does patient have a Living Will: No Does patient have a Durable POA for Healthcare: No - Code Status/Comfort Care Code Status Assessed: Yes Code Status: Full Code Critical Care: No Time Spent Managing PTS Care (In Minutes): 45
[2023-11-21] MEDS: NA CHLORIDE 0.9% 1,000 ML IV SCH (14:43)
[2023-11-21 14:49] VITALS: O2SAT 95
[2023-11-21 14:53] VITALS: BMI 31.5
[2023-11-21] MEDS: CEFTRIAXONE 1,000 MG in NA CHLORIDE 0.9% 50 ML IVPB SCH (20:29)
[2023-11-22] MEDS: ACETAMINOPHEN 500 MG TAB PO PRN (00:53)
[2023-11-22 06:08] LABS: Absolute Eosinophils 0.2 K/uL (0-0.5); Absolute Lymphocytes (CBC) 0.9 K/uL (0.7-4.9); Absolute Monocytes 0.9 K/uL (0.1-1.3); Absolute Neutrophil 4.7 K/uL (1.8-8.0); Basophils % 0.6 % (0-1.3); Hematocrit 30.6 % (39.6-49.0); Hemoglobin 10.2 g/dL (13.6-17.9); Lymphocytes % 13.2 % (15.3-44.8); MCH 31.1 pg (27.0-35.0); MCHC 33.4 g/dL (32.0-36.0); MCV 93.2 fL (80-100); MPV 7.1 fL (7.6-11.3); Monocytes % 13.8 % (3.3-12.3); Neutrophils % 69.4 % (41.7-73.7); Platelets 243 thou/uL (152-406); RBC Red Blood Cell Count 3.28 M/uL (4.33-5.43); Red Cell Distribution Width 14.2 % (12.1-15.2)
[2023-11-22 06:41] LABS: Albumin 2.3 g/dL (3.4-5.0); Albumin/Globulin Ratio 0.6 (1.1-1.8); Anion Gap 8.5 mEq/L (5.0-15.0); Bilirubin Total 0.3 mg/dL (0.2-1.0); Globulin 3.8 g/dL (2.3-3.5); Potassium 3.5 mEq/L (3.5-5.1); Protein, Total 6.1 g/dL (6.4-8.2); Troponin High Sensitivity 17.5 pg/mL (<58.9)
--- NOTE | 2023-11-22 07:07 | P.PN ---
Date of Service: 11/22/23 subjective Admitted for pneumonia, UTI, confusion History of pelvic fracture, fall precaution Encourage ICS, bilateral lower extremity Dopplers for lower extremity edema Family at bedside Review of Systems is unable to be obtained Physical Examination - Physical Exam vital signs Reviewed General: Alert, In no apparent distress, Confused, AOx2 HEENT: Atraumatic, PERRLA, Mucous membr. moist/pink, EOMI, Sclerae nonicteric Neck: Supple, 2+ carotid pulse no bruit, No LAD, Without JVD or thyroid abnormality Respiratory: Clear to auscultation bilaterally, Normal air movement Cardiovascular: Regular rate/rhythm, Normal S1 S2, lower extremity Gastrointestinal: Normal bowel sounds, Soft and benign, Non-distended, No tenderness Musculoskeletal: No clubbing, generalized weakness, Integumentary: No rashes Neurological: Normal tone, Sensation intact, Cranial nerves 3-12 intact, Abnormal gait, Abnormal speech, Abnormal strength Lymphatics: No axilla or inguinal lymphadenopathy Assessment & Plan - Problems (Diagnosis) SIRS sepsis secondary to pneumonia/UTI UTI (urinary tract infection) Metabolic encephalopathy from sepsis Current Visit: Yes Status: Acute Healthcare associated bacterial pneumonia Current Visit: Yes Status: Acute History of poliomyelitis Current Visit: Yes Status: Acute Pelvic fracture Lower extremity edema Current Visit: No Status: Acute BPH (benign prostatic hyperplasia) Onset Date: 11/24/16 Current Visit: No Status: Chronic Qualifiers: Diabetes mellitus Onset Date: 11/24/16 Current Visit: No Status: Chronic Qualifiers: Hypertension Onset Date: 11/24/16 Current Visit: No Status: Chronic Seizure disorder Onset Date: 11/24/16 Current Visit: No Status: Chronic - Plan Plan: 1. Continue with IV antibiotics 2. Awaiting sputum and blood culture 3. Repeat chest x-ray, incentive spirometer 4. CT scan of the chest if pneumonia is not improving- 5. Repeat UA with microscopy 6. Continue with nebs as needed 7. O2 per protocol 8. Continue with gentle hydration 9. Repeat labs including CBC and renal function in a.m. 10. GI and DVT prophylaxis 11. Follow cultures 12. OT 13. Bilateral lower extremity Doppler Discharge Plan: Home Plan to discharge in: Greater than 2 days - Advance Directives Does patient have a Living Will: No Does patient have a Durable POA for Healthcare: No - Code Status/Comfort Care Code Status Assessed: Yes Code Status: Full Code Critical Care: No Time Spent Managing PTS Care (In Minutes): 35 <Eboni Acosta - Last Filed: 11/22/23 09:38> Patient was seen and examined. Events of the last 24 hours have been noted. Spoke with with VANESSA regarding patient's clinical picture after evaluating and examining the patient independently. I performed a substantial part of the MDM during this patient's care today. I personally made or approved the documented management plan and acknowledge its risk of complications. I agree with the findings and documentation provided in the VANESSA's notes. Patient doing much better. Back to his baseline. Spoke with family and they feel like patient is back to his baseline. Anticipate discharge in a.m. <Tena Weir - Last Filed: 11/23/23 02:33>
[2023-11-22] MEDS: TAMSULOSIN 0.4 MG SR CAP PO SCH (10:43)
[2023-11-22] MEDS: NYSTATIN PWDR 100000 UNIT/GM TOP SCH (13:17)
--- NOTE | 2023-11-22 13:38 | RAD REPORT ---
EXAM DESCRIPTION: US - Extrem Venous W Compress Lew - 11/22/2023 10:46 am CLINICAL HISTORY: lower extremity edema COMPARISON: None. TECHNIQUE: Real-time sonographic evaluation of the bilateral lower extremity deep venous systems was performed. FINDINGS: Normal compressibility, flow augmentation, phasic flow and spontaneous flow is identified in both the left and right lower extremity deep venous systems. No intraluminal filling defects seen. IMPRESSION: No DVT in either lower extremity.
[2023-11-22] MEDS: ASPIRIN 81 MG CHEWABLE TABLET PO SCH (20:57)
[2023-11-22] MEDS: [UNRECOGNIZED DRUG - OTHER] OPTH SCH (20:58)
[2023-11-22] MEDS: BRIMONIDINE TART OPTH SCH (20:58)
[2023-11-22] MEDS: BRINZOLAMIDE OPTH SCH (20:58)
[2023-11-23 06:10] LABS: Absolute Eosinophils 0.2 K/uL (0-0.5); Absolute Lymphocytes (CBC) 0.8 K/uL (0.7-4.9); Absolute Neutrophil 3.9 K/uL (1.8-8.0); Basophils % 0.7 % (0-1.3); Eosinophils % 3.9 % (0-4.4); Hematocrit 32.1 % (39.6-49.0); Hemoglobin 10.6 g/dL (13.6-17.9); MCH 30.2 pg (27.0-35.0); MCHC 32.8 g/dL (32.0-36.0); MPV 6.9 fL (7.6-11.3); Neutrophils % 65.4 % (41.7-73.7); Platelets 262 thou/uL (152-406); RBC Red Blood Cell Count 3.49 M/uL (4.33-5.43); Red Cell Distribution Width 13.9 % (12.1-15.2)
[2023-11-23 06:37] LABS: Albumin 2.3 g/dL (3.4-5.0); Anion Gap 9.1 mEq/L (5.0-15.0); Magnesium 1.9 mg/dL (1.6-2.4); Potassium 3.1 mEq/L (3.5-5.1)
[2023-11-23] MEDS: POTASSIUM 25 MEQ EFFERV TAB PO ONE (08:29)
[2023-11-23] MEDS: POTASSIUM CL SA 10 MEQ TAB PO SCH (08:32)
[2023-11-23] MEDS: CEFTRIAXONE 2,000 MG in NA CHLORIDE 0.9% 50 ML IVPB SCH (08:38)
[2023-11-23] MEDS: HOME MED 1 EA UNK (Multivitamin [Multivitamin] Tablet) PO SCH (09:00)
[2023-11-23] MEDS: HOME MED 1 EA UNK (Calcium Carbonate/Vitamin D3 [Calcium 500-Vit D3 600 Tablet] Tablet) PO SCH (09:00)
[2023-11-23 09:34] VITALS: TEMP 98
--- NOTE | 2023-11-23 12:40 | EKG ---
Test Date: 2023-11-21 Test Time: 07:10:38 Break Out Worker: EFE MEASUREMENT RESULTS: Intervals: Rate: 118 MT: 130 QRSD: 80 QT: 290 QTc: 406 [place]: P: 27 MT: 130 QRS: 63 T: 10 INTERPRETIVE STATEMENTS: Sinus tachycardia Nonspecific ST and T wave abnormality Abnormal ECG Compared to ECG 07/16/2022 10:36:41 ST (T wave) deviation now present Sinus rhythm no longer present Electronically Signed On 11-23-23 12:39:05 CDT by Johnny Boateng
[2023-11-23 12:45] VITALS: BP 115/60
--- NOTE | 2023-11-23 12:55 | P.DS ---
Admission Date: 11/21/23 Discharge Date: 11/23/23 Reason for Admission: AMS/UTI Brief History of Present Illness: Patient is an 88-year-old gentleman came to the hospital with altered mental status. Patient with urinary tract infection and pneumonia. Patient came in with confusion. Patient lives at [facility] with a history of polio. 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 He has been at the nursing facility since he broke his pelvis. He had a pelvic fracture and went to [facility] for rehab. Since that time he has not really been able to ambulate. Patient clinically is confused at this time but his vital signs are stable. Patient will be admitted to the hospital for observation. Patient with UTI with possible pneumonia with toxic encephalopathy. Hospital Course: Mr. Giron is an 88-year-old gentleman who was admitted with a urinary tract infection resulting in sepsis with a supratherapeutic Dilantin level. Dilantin has been held during admission. A repeat chest x-ray was positive for "mild bilateral pulmonary opacities may represent pulmonary edema or infection. The heart is mildly enlarged in size. No displaced fractures." This morning he is awake and alert with stable vital signs. He is a long-term resident of [facility] (status post pelvic fracture) and is safe for discharge at this time. He has been receiving Rocephin for E. coli in his blood culture and urine culture. He will be discharged with cefdinir 300 mg p.o. twice daily #14 and also doxycycline 100 mg p.o. twice daily #14 <Alejandra Jones - Last Filed: 11/23/23 13:05> Admission Date: 11/21/23 Discharge Date: 11/23/23 Hospital Course: Pt seen and examined. I agree with the note by the HEALTH SCIENCE SPECIALIST. Ok to discharge pt with levaquin 750mg po daily for 7 days. Continue other home meds. Ok to dc pt to [facility]. <Enrique Harvey - Last Filed: 11/23/23 14:25> Disposition: TRANSFER TO [facility] Discharge Condition: GOOD Vital Signs/Physical Exam: Temp Pulse Resp BP Pulse Ox 98 F 77 16 115/60 96 11/23/23 12:00 11/23/23 12:00 11/23/23 12:00 11/23/23 12:00 11/23/23 12:00 General: Alert, In no apparent distress, Oriented x3 HEENT: Atraumatic, Normocephalic Neck: Supple Respiratory: Normal air movement Cardiovascular: Normal pulses, Regular rate/rhythm, Normal S1 S2 Capillary refill: <2 Seconds Gastrointestinal: Normal bowel sounds Musculoskeletal: No clubbing Neurological: Normal speech, Normal tone, Normal affect Lymphatics: No axilla or inguinal lymphadenopathy External genitalia: Deferred Rectal: Deferred Laboratory Data at Discharge: WBC 5.90 thou/uL (4.3-10.9) 11/23/23 05:54 Hgb 10.6 g/dL (13.6-17.9) L 11/23/23 05:54 Hct 32.1 % (39.6-49.0) L 11/23/23 05:54 Plt Count 262 thou/uL (152-406) 11/23/23 05:54 PT 12.0 SECONDS (9.4-12.5) 11/21/23 07:28 INR 1.07 11/21/23 07:28 APTT 30.7 SECONDS (24.3-36.9) 11/21/23 07:28 Sodium 133 mEq/L (136-145) L D 11/23/23 05:54 Potassium 3.1 mEq/L (3.5-5.1) L 11/23/23 05:54 BUN 8 mg/dL (7-18) 11/23/23 05:54 Creatinine 0.63 mg/dL (0.70-1.30) L 11/23/23 05:54 Glucose 173 mg/dL (74-106) H 11/23/23 05:54 Phosphorus 2.0 mg/dL (2.5-4.9) L 11/23/23 05:54 Magnesium 1.9 mg/dL (1.6-2.4) 11/23/23 05:54 Total Bilirubin 0.3 mg/dL (0.2-1.0) 11/22/23 05:50 AST 15 U/L (15-37) 11/22/23 05:50 ALT 15 U/L (16-61) L 11/22/23 05:50 Alkaline Phosphatase 95 U/L (45-117) D 11/22/23 05:50 <Jones,Alejandra Grant - Last Filed: 11/23/23 13:05> Vital Signs/Physical Exam: Temp Pulse Resp BP Pulse Ox 98 F 77 16 115/60 96 11/23/23 12:00 11/23/23 12:00 11/23/23 12:00 11/23/23 12:00 11/23/23 12:00 Laboratory Data at Discharge: WBC 5.90 thou/uL (4.3-10.9) 11/23/23 05:54 Hgb 10.6 g/dL (13.6-17.9) L 11/23/23 05:54 Hct 32.1 % (39.6-49.0) L 11/23/23 05:54 Plt Count 262 thou/uL (152-406) 11/23/23 05:54 PT 12.0 SECONDS (9.4-12.5) 11/21/23 07:28 INR 1.07 11/21/23 07:28 APTT 30.7 SECONDS (24.3-36.9) 11/21/23 07:28 Sodium 133 mEq/L (136-145) L D 11/23/23 05:54 Potassium 3.1 mEq/L (3.5-5.1) L 11/23/23 05:54 BUN 8 mg/dL (7-18) 11/23/23 05:54 Creatinine 0.63 mg/dL (0.70-1.30) L 11/23/23 05:54 Glucose 173 mg/dL (74-106) H 11/23/23 05:54 Phosphorus 2.0 mg/dL (2.5-4.9) L 11/23/23 05:54 Magnesium 1.9 mg/dL (1.6-2.4) 11/23/23 05:54 Total Bilirubin 0.3 mg/dL (0.2-1.0) 11/22/23 05:50 AST 15 U/L (15-37) 11/22/23 05:50 ALT 15 U/L (16-61) L 11/22/23 05:50 Alkaline Phosphatase 95 U/L (45-117) D 11/22/23 05:50 <Enrique Harvey - Last Filed: 08/26/24 14:25> Diet: AHA Activity: Fall precautions <Alejandra Jones - Last Filed: 11/23/23 13:05> <Enrique Harvey Serenity - Last Filed: 11/23/23 14:25> Home Medications: Aspirin 81 mg PO BEDTIME 07/16/22 Metformin HCl [Glucophage*] 1 tab PO DAILY 07/16/22 Tamsulosin HCl [Flomax] 1 tab PO DAILY 07/16/22 Brinzolamide/Brimonidine Tart [Simbrinza 1%-0.2% Eye Drop] 1 drop EACH EYE BID 11/21/23 Calcium Carbonate/Vitamin D3 [Calcium 500-Vit D3 600 Tablet] 1 tab PO DAILY 11/21/23 Multivitamin 1 tab PO DAILY 11/21/23 Nystatin Powder [Mycostatin (Powder)*] 1 appl TOP TID 11/21/23 Cefdinir [Cefdinir*] 300 mg PO BID #14 cap 11/23/23 Doxycycline Hyclate 100 mg PO BID #14 tab 11/23/23 New Medications: Cefdinir [Cefdinir*] 300 mg PO BID #14 cap Doxycycline Hyclate 100 mg PO BID #14 tab Physician Discharge Instructions: Mr. Giron is an 88-year-old gentleman who was admitted with a urinary tract infection resulting in sepsis with a supratherapeutic Dilantin level. Dilantin has been held during admission. A repeat chest x-ray was positive for "mild bilateral pulmonary opacities may represent pulmonary edema or infection. The heart is mildly enlarged in size. No displaced fractures." This morning he is awake and alert with stable vital signs. He is a long-term resident of [facility] (status post pelvic fracture) and is safe for discharge at this time. He has been receiving Rocephin for E. coli in his blood culture and urine culture. He will be discharged with cefdinir 300 mg p.o. twice daily #14 and also doxycycline 100 mg p.o. twice daily #14 -DC IV and DC home -Follow-up with PCP in 1 to 2 weeks -Please call Dr. Weir at [phone] if any questions regarding hospital stay -Please call nursing station at [phone] if any nursing or medication questions -Return to the emergency room if symptoms worsen -Keep right lower extremity elevated while in bed. Also recommend physical therapy and occupational therapy with range of motion exercises to help with minimizing swelling in the right leg. Patient had polio in the right leg years ago. Followup: Jenae Porter MD [Primary Care Provider] -
[2023-11-24] MEDS ORDERED: CEFTRIAXONE 2,000 MG in NA CHLORIDE 0.9% 50 ML IVPB SCH (09:00)
[2023-11-24] MEDS ORDERED: levoFLOXacin 750 MG TAB PO SCH (09:00)
== END 2023-11-23 15:41 | DRG 871 ==
LOC: ER 06:57 → ERHOLD 12:09 → 2ND 12:40
PROVIDERS: ADMIT Hospitalist; ATTEND Hospitalist
DX: A41.9 Sepsis, unspecified organism (principal); G92.9 Unspecified toxic encephalopathy; J15.9 Unspecified bacterial pneumonia; S32.9XXA Fracture of unspecified parts of lumbosacral spine and pelvis, initial encounter for closed fracture; N39.0 Urinary tract infection, site not specified; I10 Essential (primary) hypertension; E66.9 Obesity, unspecified; D64.9 Anemia, unspecified; E11.65 Type 2 diabetes mellitus with hyperglycemia; N40.0 Benign prostatic hyperplasia without lower urinary tract symptoms; G40.909 Epilepsy, unspecified, not intractable, without status epilepticus; T42.0X1A Poisoning by hydantoin derivatives, accidental (unintentional), initial encounter; Z88.5 Allergy status to narcotic agent; Z79.82 Long term (current) use of aspirin; Z68.31 Body mass index [BMI] 31.0-31.9, adult; Z79.84 Long term (current) use of oral hypoglycemic drugs; Z90.49 Acquired absence of other specified parts of digestive tract; Z77.22 Contact with and (suspected) exposure to environmental tobacco smoke (acute) (chronic); Z79.899 Other long term (current) drug therapy; Y95 Nosocomial condition
CPT/HCPCS: 36415; 51702; 70450; 71045; 71250; 72125; 80048; 80053; 80069; 80076; 80185; 81001; 82947; 83605; 83735; 83880; 84484; 85025; 85610; 85730; 87040; 87077; 87086; 87088; 87186; 87205; 87804; 87811; 93005; 93970; 94010; 96365; 96367; 96375; 99285; J0696; J1720; J2185; J7030; J7050

== ENCOUNTER 2024-02-19 16:47 | Emergency (ER) | payer OTHER, MEDICARE ==
--- OUTSIDE RECORDS SUMMARY | 2024-02-19 16:49 | XMS REPORT | Continuity of Care Document ---
Author Name Unknown Address [address] [facility] [address] [place] [address] [facility] thconnect Address [address] [facility] [address] [place] [address] Care Team Providers Care Napping Machine Operator Name Role Phone Adam Cortes Attending Clinician Unavailable Problems Condition Name Condition Details Condition Category Status Onset Date Resolution Date Last Treatment Date Treating Clinician Comments Source [id number] Subclinica l hypothyroi dism Problem [facility] Essential hypertensi on Essential (primary) hypertensi on Problem [facility] Hyperglyce chad due to type 2 diabetes mellitus Type 2 diabetes mellitus with hyperglyce chad Problem [facility] Left side sciatica Sciatica, left side Problem [facility] [id number] History of post-polio syndrome Problem [facility] [id number] Benign prostatic hyperplasi a with lower urinary tract symptoms Problem [facility] Sciatica Sciatica of left side Problem [facility] [id number] Type 2 diabetes mellitus with hyperglyce chad, without long-term current use of insulin Problem [facility] [id number] Seizure disorder Problem [facility] [id number] Other obstructiv e and reflux uropathy Problem [facility] Peripheral venous insufficie ncy Venous insufficie ncy (chronic) (periphera l) Problem [facility] Osteoarthr itis Polyosteoa rthritis, unspecifie d Problem [facility] 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 Ordering Clinician Indication Dosage Frequency Signature (SIG) Comments Components Source Finasteride 5 MG Finasteride 5 MG 2023-03 0 00:00: 00 No 1{table t} QD Finasterid e 5 MG Amoxicillin -Pot Clavulanate 875-125 MG Amoxicillin -Pot Clavulanate 875-125 MG 7- 00:00: 00 No 1{table t} BID Amoxicilli n-Pot Clavulanat e 875-125 MG metFORMIN HCl 1000 MG metFORMIN HCl 1000 MG No 1{table t_with_ meals} BID metFORMIN HCl 1000 MG Gabapentin 600 MG Gabapentin 600 MG No 2{table t} BID Gabapentin 600 MG Lovastatin 20 MG Lovastatin 20 MG No QD Lovastatin 20 MG Tamsulosin HCl 0.4 MG Tamsulosin HCl 0.4 MG No 1{capsu le} BID Tamsulosin HCl 0.4 MG Phenytoin Sodium Extended 300 MG Phenytoin Sodium Extended 300 MG No 1{capsu le} QD Phenytoin Sodium Extended 300 MG Aspirin Adult Low Dose 81 MG [...] No BID Phenytoin Sodium Extended 100 MG metFORMIN HCl 500 MG metFORMIN HCl 500 MG No 1{table t_with_ meals} QD metFORMIN HCl 500 MG Lovastatin 10 MG Lovastatin [...] Nystatin - Nystatin - No Nystatin - Immunizations Ordered Immunization Name Filled Immunization Name Date Status Comments Source Flucelvax - single dose syringe Flucelvax - single dose syringe 2022-01-14 11:17:00 Completed [facility] Flucelvax - single dose syringe Flucelvax - single dose syringe 2022-01-14 11:17:00 Completed [facility] Flucelvax - single dose syringe Flucelvax - single dose syringe 2022-01-14 11:17:00 Completed [facility] Flucelvax - single dose syringe Flucelvax - single dose syringe 2022-01-14 11:17:00 Completed [facility] Flucelvax - single dose syringe Flucelvax - single dose syringe 2022-01-14 11:17:00 Completed [facility] Flucelvax - single dose syringe Flucelvax - single dose syringe 2022-01-14 11:17:00 Completed [facility] Flucelvax - single dose syringe Flucelvax - single dose syringe 2022-01-14 11:17:00 Completed [facility] Prevnar 13 (PCV13) Prevnar 13 (PCV13) 2021-01-27 10:33:00 Completed [facility] Prevnar 13 (PCV13) Prevnar 13 (PCV13) 2021-01-27 10:33:00 Completed [facility] Prevnar 13 (PCV13) Prevnar 13 (PCV13) 2021-01-27 10:33:00 Completed [facility] Prevnar 13 (PCV13) Prevnar 13 (PCV13) 2021-01-27 10:33:00 Completed [facility] Prevnar 13 (PCV13) Prevnar 13 (PCV13) 2021-01-27 10:33:00 Completed [facility] Prevnar 13 (PCV13) Prevnar 13 (PCV13) 2021-01-27 10:33:00 Completed [facility] Prevnar 13 (PCV13) Prevnar 13 (PCV13) 2021-01-27 10:33:00 Completed [facility] Prevnar 13 (PCV13) Prevnar 13 (PCV13) 2021-01-27 10:33:00 Completed [facility] FluAD FluAD 2021-01-27 10:32:00 Completed [facility] FluAD FluAD 2021-01-27 10:32:00 Completed [facility] FluAD FluAD 2021-01-27 10:32:00 Completed [facility] FluAD FluAD 2021-01-27 10:32:00 Completed [facility] FluAD FluAD 2021-01-27 10:32:00 Completed [facility] FluAD FluAD 2021-01-27 10:32:00 Completed [facility] FluAD FluAD 2021-01-27 10:32:00 Completed [facility] FluAD FluAD 2021-01-27 10:32:00 Completed [facility] FluAD FluAD Unknown Completed [facility] Flucelvax - single dose syringe Flucelvax - single dose syringe Unknown Completed [facility] Prevnar 13 (PCV13) Prevnar 13 (PCV13) Unknown Completed [facility] FluAD FluAD Unknown Completed [facility] Flucelvax - single dose syringe Flucelvax - single dose syringe Unknown Completed [facility] Prevnar 13 (PCV) Prevnar () Unknown Completed [facility] FluAD FluAD Unknown Completed [facility] Flucelvax (ccIIV4) - SDS - 0.5mL Flucelvax (ccIIV4) - SDS - 0.5mL Unknown Completed [facility] Prevnar 13 (PCV) Prevnar () Unknown Completed [facility] Vital Signs Vital Name Observation Time Observation Value Comments S ource height 2024-01-06 16:30:00 70.5 [in_i] Comm on [facility] weight 2024-01-06 16:30:00 220 [lb_av] Comm on [facility] temperature 2024-01-06 16:30:00 97.2 [degF] Com [facility] bmi 2024-01-06 16:30:00 31.12 kg/m2 Comm on [facility] oximetry 2024-01-06 16:30:00 96 % Commo n [facility] respiratory rate 2024-01-06 16:30:00 18 /min [facility] blood pressure systolic 2024-01-06 16:30:00 133 mm[Hg] [facility] blood pressure diastolic 2024-01-06 16:30:00 75 mm[Hg] [facility] height 2023-10-14 15:45:00 70.5 [in_i] Comm on [facility] weight 2023-10-14 15:45:00 225 [lb_av] Comm on [facility] temperature 2023-10-14 15:45:00 96.8 [degF] Com [facility] bmi 2023-10-14 15:45:00 31.82 kg/m2 Comm on [facility] oximetry 2023-10-14 15:45:00 94 % Commo n [facility] respiratory rate 2023-10-14 15:45:00 18 /min Common [facility] blood pressure systolic 2023-10-14 15:45:00 165 mm[Hg] [facility] blood pressure diastolic 2023-10-14 15:45:00 79 mm[Hg] [facility] height 2022-05-16 09:40:00 70.5 [in_i] Comm on [facility] weight 2022-05-16 09:40:00 170.0 [lb_av] Co mmon [facility] temperature 2022-05-16 09:40:00 96.0 [degF] Com mon [facility] bmi 2022-05-16 09:40:00 24.05 kg/m2 Comm on [facility] oximetry 2022-05-16 09:40:00 99 % Commo n [facility] respiratory rate 2022-05-16 09:40:00 18 /min [facility] blood pressure systolic 2022-05-16 09:40:00 117 mm[Hg] Common [facility] blood pressure diastolic 2022-05-16 09:40:00 67 mm[Hg] [facility] height 2022-03-14 13:40:00 70.5 [in_i] Comm on [facility] weight 2022-03-14 13:40:00 170 [lb_av] Comm on [facility] temperature 2022-03-14 13:40:00 97.8 [degF] Com mon [facility] bmi 2022-03-14 13:40:00 24.05 kg/m2 Comm on [facility] oximetry 2022-03-14 13:40:00 99 % Commo n [facility] respiratory rate 2022-03-14 13:40:00 18 /min Common [facility] height 2022-01-14 10:50:00 70.5 [in_i] Comm on [facility] weight 2022-01-14 10:50:00 186 [lb_av] Comm on [facility] temperature 2022-01-14 10:50:00 97.1 [degF] Com mon [facility] bmi 2022-01-14 10:50:00 26.31 kg/m2 Comm on [facility] oximetry 2022-01-14 10:50:00 97 % Commo n [facility] respiratory rate 2022-01-14 10:50:00 16 /min Common [facility] blood pressure systolic 2022-01-14 10:50:00 138 mm[Hg] Common [facility] blood pressure diastolic 2022-01-14 10:50:00 73 mm[Hg] Common [facility] height 2021-11-15 11:20:00 70.5 [in_i] Comm on [facility] weight 2021-11-15 11:20:00 186 [lb_av] Comm on [facility] temperature 2021-11-15 11:20:00 97.5 [degF] Com [facility] bmi 2021-11-15 11:20:00 26.31 kg/m2 Comm on [facility] oximetry 2021-11-15 11:20:00 97 % Commo n [facility] respiratory rate 2021-11-15 11:20:00 16 /min Common [facility] blood pressure systolic 2021-11-15 11:20:00 139 mm[Hg] [facility] blood pressure diastolic 2021-11-15 11:20:00 67 mm[Hg] Common [facility] height 2021-10-10 10:40:00 70.5 [in_i] Comm on [facility] weight 2021-10-10 10:40:00 186 [lb_av] Comm on [facility] temperature 2021-10-10 10:40:00 97.6 [degF] Com mon [facility] bmi 2021-10-10 10:40:00 26.31 kg/m2 Comm on [facility] oximetry 2021-10-10 10:40:00 96 % Commo n [facility] respiratory rate 2021-10-10 10:40:00 16 /min Common [facility] blood pressure systolic 2021-10-10 10:40:00 127 mm[Hg] [facility] blood pressure diastolic 2021-10-10 10:40:00 58 mm[Hg] Common [facility] height 2021-10-10 10:30:00 70.5 [in_i] Comm on [facility] weight 2021-10-10 10:30:00 186 [lb_av] Comm on [facility] temperature 2021-10-10 10:30:00 97.6 [degF] Com [facility] bmi 2021-10-10 10:30:00 26.31 kg/m2 Comm on [facility] oximetry 2021-10-10 10:30:00 96 % Commo n [facility] respiratory rate 2021-10-10 10:30:00 16 /min Common [facility] blood pressure systolic 2021-10-10 10:30:00 127 mm[Hg] Common [facility] blood pressure diastolic 2021-10-10 10:30:00 58 mm[Hg] Common [facility] height 2021-08-29 10:00:00 70.5 [in_i] Comm on [facility] weight 2021-08-29 10:00:00 186.0 [lb_av] Co mmon [facility] temperature 2021-08-29 10:00:00 98.6 [degF] Com mon [facility] bmi 2021-08-29 10:00:00 26.31 kg/m2 Comm on [facility] oximetry 2021-08-29 10:00:00 98 % Commo n [facility] respiratory rate 2021-08-29 10:00:00 17 /min [facility] blood pressure systolic 2021-08-29 10:00:00 140 mm[Hg] [facility] blood pressure diastolic 2021-08-29 10:00:00 75 mm[Hg] [facility] Procedures Procedure Date / Time Performed Performing Clinicia n Source PVR 2023-10-14 00:00:00 [facility] Encounters Start Date/Time End Date/Time Encounter Type Admission Type Attending Clinicians Care Facility Care Department Encounter ID Source 2023-10-14 16:52:00 Outpatient Cortes, Adam STLC STLC [id number] [facility] 2023-09-16 14:04:00 Outpatient Cortes, Adam STLC STLC [id number] [facility] 2022-05-15 11:46:02 Outpatient Cortes, Adam STLC STLMLC [id number] [facility] 2022-03-14 13:09:00 Outpatient Cortes, Adam STLC STLMLC [id number] [facility] 2022-01-10 10:18:02 Outpatient Cortes, Adam STLC STLMLC [id number] [facility] 2021-09-25 09:44:03 Outpatient Cortes, Adam STLC STLMLC [id number] [facility] 2021-08-29 09:40:04 Outpatient Cortes, Adam STLC STLMLC [id number] [facility] 2024-01-06 00:00:00 2024-01-06 00:00:00 OFFICE VISIT ESTAB PT LEVEL 3 STLC STLMLC [id number] [facility] 2023-10-14 00:00:00 2023-10-14 00:00:00 OFFICE VISIT NEW PT LEVEL 4 STLMLC STLMLC [id number] [facility] 2022-07-16 00:00:00 2022-07-16 00:00:00 (TEL) STLMLC STLMLC [id number] [facility] 2022-05-16 00:00:00 2022-05-16 00:00:00 OFFICE VISIT ESTAB PT LEVEL 4 STLMLC STLMLC [id number] [facility] 2022-03-20 00:00:00 2022-03-20 00:00:00 (WEB) STLMLC STLMLC [id number] [facility] 2022-03-14 00:00:00 2022-03-14 00:00:00 OFFICE VISIT EST PT LEVEL 3 STLMLC STLMLC [id number] [facility] 2022-03-14 00:00:00 2022-03-14 00:00:00 (TEL) STLMLC STLMLC [id number] [facility] 2022-01-14 00:00:00 2022-01-14 00:00:00 OFFICE VISIT ESTAB PT LEVEL 4 STLMLC STLMLC [id number] [facility] 2022-01-14 00:00:00 2022-01-14 00:00:00 (TEL) STLMLC STLMLC [id number] [facility] 2021-11-15 00:00:00 2021-11-15 00:00:00 (TEL) STLMLC STLMLC [id number] [facility] 2021-11-15 00:00:00 2021-11-15 00:00:00 OFFICE VISIT ESTAB PT LEVEL 4 STLMLC STLMLC [id number] [facility] 2021-11-12 00:00:00 2021-11-12 00:00:00 (TEL) STLMLC STLMLC [id number] [facility] 2021-10-10 00:00:00 2021-10-10 00:00:00 SUB ANNUAL [facility] VISIT STLMLC STLMLC [id number] [facility] 2021-10-10 00:00:00 2021-10-10 00:00:00 OFFICE VISIT ESTAB PT LEVEL 4 STLMLC STLMLC [id number] [facility] 2021-10-10 00:00:00 2021-10-10 00:00:00 (TEL) STLMLC STLMLC [id number] [facility] 2021-08-29 00:00:00 2021-08-29 00:00:00 OFFICE VISIT NEW PT LEVEL 4 STLMLC STLMLC [id number] [facility]
[2024-02-19] MEDS ORDERED: NA CHLORIDE 0.9% 50 ML ONE (17:16)
[2024-02-19] MEDS ORDERED: CEFTRIAXONE 1000 MG/VIAL ONE (17:16)
--- NOTE | 2024-02-19 17:43 | RAD REPORT ---
Procedure: Chest Single View HISTORY: Cough COMPARISON: October 2023 FINDINGS: The lungs appear clear of acute infiltrate. No significant pleural effusion noted. The heart is mildly enlarged. IMPRESSION: No acute abnormality is displayed.
[2024-02-19 17:59] LABS: PT Prothrombin Time 11.4 SECONDS (9.4-12.5); PTT, Activated Partial Thromb 33.2 SECONDS (24.3-36.9); Protime INR 1.02
[2024-02-19 18:00] LABS: Absolute Basophils 0.1 K/uL (0-0.5); Absolute Eosinophils 0.3 K/uL (0-0.5); Absolute Monocytes 1.2 K/uL (0.1-1.3); Absolute Neutrophil 8.3 K/uL (1.8-8.0); Basophils % 0.6 % (0-1.3); Eosinophils % 2.5 % (0-4.4); Hematocrit 30.3 % (39.6-49.0); Hemoglobin 9.8 g/dL (13.6-17.9); Lymphocytes % 9.3 % (15.3-44.8); MCHC 32.3 g/dL (32.0-36.0); MCV 89.5 fL (80-100); MPV 6.9 fL (7.6-11.3); Neutrophils % 76.6 % (41.7-73.7); Platelets 299 thou/uL (152-406); RBC Red Blood Cell Count 3.38 M/uL (4.33-5.43)
[2024-02-19 18:10] LABS: Albumin 2.9 g/dL (3.4-5.0); Albumin/Globulin Ratio 0.6 (1.1-1.8); Bilirubin Total 0.2 mg/dL (0.2-1.0); Globulin 4.5 g/dL (2.3-3.5); Protein, Total 7.4 g/dL (6.4-8.2)
[2024-02-19 18:14] LABS: SARS-CoV-2 Antigen CONTROL BLUE LINE VIS/BG OK; SARS-CoV-2 Antigen Rapid Res Negative (Negative)
[2024-02-19] MEDS ORDERED: NA CHLORIDE 0.9% 1,000 ML ONE (18:17)
[2024-02-19] MEDS ORDERED: ACETAMINOPHEN 500 MG TAB ONE (18:20)
--- NOTE | 2024-02-19 20:25 | EDPHYS ---
Physician Documentation [facility] Name: Mango Giron Age: 88 yrs Sex: Male : 1935 Arrival Date: 02/19/2024 Time: 16:47 Bed 16 Private MD: ED Physician Chu Duncan HPI: 02/18 16:54 This 88 yrs old Male presents to ER via Unassigned with complaints of Cough. ec2 16:54 Patient arrives today for evaluation of cough and cold symptoms. Patient reports that ec2 he did have an nonproductive wet sounding cough ongoing. Reports no vomiting, no diarrhea. Denies history of heart failure however does endorse leg swelling.. Historical: - Allergies: 16:57 Codeine; ss - PMHx: 16:57 Diabetes - NIDDM; enlarged prostate; Hypertension; Polio; Seizures; ss - Immunization history:: Adult Immunizations unknown. - Infectious Disease History:: Denies. - Social history:: Smoking status: unknown. ROS: 16:54 Constitutional: as per hpi ec2 Exam: 16:54 Constitutional: GEN: NAD Head: atraumatic Eyes: EOMI Ears: External ears are ec2 normal. CV: regular rate, trace bilateral lower extremity edema. LUNGS: no respiratory distress, scattered rales, frequent cough ABD: non-distended SKIN: no evidence of rashes MSK: no evidence of trauma Vital Signs: 16:56 BP 155 / 77; Pulse 108; Resp 19; Temp 99.9(O); Pulse Ox 99% on R/A; Pain 0/10; ss 17:57 BP 132 / 71; Pulse 101; Resp 18; Pulse Ox 99% on R/A; ph 20:17 Pulse 93; ec2 20:56 BP 128 / 70; Pulse 90; Resp 18; Temp 98; Pulse Ox 96% on R/A; kj2 16:56 Pain Scale: Adult ss MDM: 16:53 Medical Screening Exam initiated ec2 16:54 Data reviewed: vital signs, nurses notes. ED course: Patient arrives today for cough ec2 and URI symptoms. Examination shows lower extremity edema. Will obtain lab work, viral swab, chest x-ray.. 18:19 ED course: Metabolic profile unrevealing, lactic acid minimally elevated at 2.1. Flu ec2 testing negative. COVID testing negative. BNP within normal ranges. CBC shows slight anemia with hemoglobin of 9.8. Will give the patient crystalloid and reassess. On reassessment, pt w/ improving tachycardia. . 18:19 ED course: EKG independently reviewed and interpreted by me, shows sinus tachycardia, ec2 rate 107, no acute ST segment elevations, intervals are nonactionable.. 20:17 ED course: On reassessment patient with improvement in tachycardia. Patient also ec2 reports symptomatically he feels fine and will be discharged home. Pending lactate.. 02/18 16:53 Order name: Blood Culture Adult (2) ec2 02/18 16:53 Order name: CBC with Diff; Complete Time: 18:09 ec2 02/18 16:53 Order name: CMP; Complete Time: 18:18 ec2 02/18 16:53 Order name: Lactate w/ 2H reflex if indic.; Complete Time: 18:18 ec2 02/18 16:53 Order name: Protime (+inr); Complete Time: 18:09 ec2 02/18 16:53 Order name: Ptt, Activated; Complete Time: 18:09 ec2 02/18 16:53 Order name: Influenza Screen (a \T\ B); Complete Time: 18:18 ec2 02/18 16:53 Order name: SARS RAPID; Complete Time: 18:18 ec2 02/18 16:53 Order name: BNP; Complete Time: 18:18 ec2 02/18 19:17 Order name: Lactate w/ 2H reflex if indic.; Complete Time: 20:24 ec2 02/18 20:12 Order name: Ghost Lactate-NO COLLECT Timer; Complete Time: 20:12 EDMS 02/18 16:53 Order name: Chest Single View XRAY; Complete Time: 17:50 ec2 02/18 16:53 Order name: Accucheck; Complete Time: 17:58 ec2 02/18 16:53 Order name: Cardiac monitoring; Complete Time: 18:26 ec2 02/18 16:53 Order name: EKG - Nurse/Tech; Complete Time: 17:58 ec2 02/18 16:53 Order name: IV Saline Lock - Large Bore; Complete Time: 17:58 ec2 02/18 16:53 Order name: Labs collected and sent; Complete Time: 17:58 ec2 02/18 16:53 Order name: O2 Per Protocol; Complete Time: 17:58 ec2 02/18 16:53 Order name: O2 Sat Monitoring; Complete Time: 17:58 ec2 02/18 16:53 Order name: Vital Signs; Complete Time: 17:58 ec2 Administered Medications: 18:25 Drug: Rocephin IV 1 grams IV at calculated rate once; Given slow IV push per pharmacy ph instructions Route: IV; Rate: calculated rate; Site: left antecubital; 19:55 Follow up: Response: No adverse reaction kj2 18:25 Drug: NS 0.9% IV 1000 ml IV at 1000 ml once; to be given as a bolus over 60 minutes ph Route: IV; Rate: 1000 ml; Site: left antecubital; 19:30 Follow up: IV Status: Completed infusion; IV Intake: 1000ml kj2 18:26 Drug: Acetaminophen PO 1000 mg PO once Route: PO; ph 21:47 Follow up: Response: No adverse reaction kj2 Disposition Summary: 02/19/24 20:24 Discharge Ordered Notes: Location: Home ec2 Condition: Stable ec2 Diagnosis - Viral infection, unspecified ec2 Followup: ec2 - With: Private Physician - When: - Reason: Re-evaluation by your physician Discharge Instructions: - Discharge Summary Sheet ec2 - Viral Illness, Adult ec2 Forms: - Medication Reconciliation Form ec2 - Antibiotic Education ec2 - Prescription Opioid Use ec2 - Patient Portal Instructions ec2 - Leadership Thank You Letter ec2 Signatures: Dispatcher MedHoNelly Rose RN RN Veronica Hanks RN RN Chu Duncan MD MD ec2 Radha Street RN kj2
--- NOTE | 2024-02-19 20:25 | ER ---
Nurse's Notes [facility] Name: Mango Giron Age: 88 yrs Sex: Male : 1935 Arrival Date: 02/19/2024 Time: 16:47 Bed 16 Private MD: Diagnosis: Viral infection, unspecified Presentation: 02/18 16:56 Chief complaint: EMS states: productive cough. Coronavirus screen: Client denies travel ss out of the [place] in the last 14 days. Ebola Screen: Patient denies exposure to infectious person. Patient denies travel to an Ebola-affected area in the 21 days before illness onset. Initial Sepsis Screen: Does the patient meet any 2 criteria? HR > 90 bpm. No. Patient's initial sepsis screen is negative. Does the patient have a suspected source of infection? No. Patient's initial sepsis screen is negative. Risk Assessment: Do you want to hurt yourself or someone else? Patient reports no desire to harm self or others. Onset of symptoms is unknown. 16:56 Method Of Arrival: EMS: [facility] 16:56 Acuity: BARR[place] 3 ss 16:58 Care prior to arrival: IV initiated. 20 GA, in the left antecubital area, Glucose ss check: 228. Historical: - Allergies: 16:57 Codeine; ss - PMHx: 16:57 Diabetes - NIDDM; enlarged prostate; Hypertension; Polio; Seizures; ss - Immunization history:: Adult Immunizations unknown. - Infectious Disease History:: Denies. - Social history:: Smoking status: unknown. Screenin:57 [facility] [place] ED Fall Risk Assessment (Adult) History of falling in the last 3 months, ph including since admission No falls in past 3 months (0 pts) Confusion or Disorientation No (0 pts) Intoxicated or Sedated No (0 pts) Impaired Gait No (0 pts) Mobility Assist Device Used Yes (1 pt) Altered Elimination No (0 pt) Score/Fall Risk Level 0 - 2 = Low Risk Oriented to surroundings, Maintained a safe environment, Hourly rounding (assess needs \T\ fall precautionary measures) done, Used ambulatory aids as needed (educated on \T\ assisted with). Abuse screen: Denies threats or abuse. Denies injuries from another. Nutritional screening: No deficits noted. Tuberculosis screening: No symptoms or risk factors identified. Assessment: 17:56 General: Appears in no apparent distress. comfortable, Behavior is calm, cooperative, ph appropriate for age. Pain: Denies pain. Neuro: Level of Consciousness is awake, alert, obeys commands, Oriented to person, place, time, situation. Cardiovascular: Capillary refill < 3 seconds in bilateral fingers Patient's skin is warm and dry. Respiratory: Reports cough that is productive, Airway is patent Respiratory effort is even, unlabored, Respiratory pattern is regular, symmetrical. GI: No signs and/or symptoms were reported involving the gastrointestinal system. Derm: Skin is pink, warm \T\ dry. Musculoskeletal: Circulation, motion, and sensation intact. Range of motion: intact in all extremities. 19:00 Reassessment: Patient appears in no apparent distress at this time. Patient and/or kj2 family updated on plan of care and expected duration. Pain level reassessed. Patient is alert, oriented x 3, equal unlabored respirations, skin warm/dry/pink. 19:56 Reassessment: Patient appears in no apparent distress at this time. Patient and/or kj2 family updated on plan of care and expected duration. Pain level reassessed. Patient is alert, oriented x 3, equal unlabored respirations, skin warm/dry/pink. 21:07 Reassessment: REPORT CALLED TO [facility], NURSE WILL CALL BACK WITH AN ETA vc1 FOR TRANSPORTATION BACK TO FACILITY. 21:44 Reassessment: EMS arrived to transport to facility at this time. kj2 Vital Signs: 16:56 BP 155 / 77; Pulse 108; Resp 19; Temp 99.9(O); Pulse Ox 99% on R/A; Pain 0/10; ss 17:57 BP 132 / 71; Pulse 101; Resp 18; Pulse Ox 99% on R/A; ph 20:17 Pulse 93; ec2 20:56 BP 128 / 70; Pulse 90; Resp 18; Temp 98; Pulse Ox 96% on R/A; kj2 16:56 Pain Scale: Adult ss ED Course: 16:50 Patient arrived in ED. ph 16:51 Veronica Hanks, FIDEL is Primary Nurse. ph 16:52 Chu Duncan MD is Attending Physician. ec2 16:57 Triage completed. ss 16:58 Arm band placed on right wrist. ss 17:27 Chest Single View XRAY In Process Unspecified. EDMS 17:55 Initial lab(s) drawn, by me, sent to lab. COVID swab sent to lab. Flu and/or RSV swab ph sent to lab. Maintain EMS IV. Dressing intact. Good blood return noted. Site clean \T\ dry. Gauge \T\ site: 20 LAC. Flushed with 10 mL NS IV with fluids infusing freely, with good blood return. 17:57 Patient has correct armband on for positive identification. Bed in low position. Call ph light in reach. Side rails up X 1. awake overnight monitor on. Pulse ox on. NIBP on. Door closed. Noise minimized. Warm blanket given. 17:58 BNP Sent. ph 17:58 SARS RAPID Sent. ph 17:58 Influenza Screen (a \T\ B) Sent. ph 17:58 Blood Culture Adult (2) Sent. ph 17:58 CBC with Diff Sent. ph 17:58 CMP Sent. ph 17:58 Lactate w/ 2H reflex if indic. Sent. ph 17:58 Protime (+inr) Sent. ph 17:58 Ptt, Activated Sent. ph 18:22 EKG done, by ED staff, reviewed by Chu Duncan MD. em1 19:00 Provided Education on: call light. kj2 19:54 Lactate w/ 2H reflex if indic. Sent. kj2 20:58 No provider procedures requiring assistance completed. kj2 21:43 IV discontinued, intact, bleeding controlled, No redness/swelling at site. Pressure kj2 dressing applied. Administered Medications: 18:25 Drug: Rocephin IV 1 grams IV at calculated rate once; Given slow IV push per pharmacy ph instructions Route: IV; Rate: calculated rate; Site: left antecubital; 19:55 Follow up: Response: No adverse reaction kj2 18:25 Drug: NS 0.9% IV 1000 ml IV at 1000 ml once; to be given as a bolus over 60 minutes ph Route: IV; Rate: 1000 ml; Site: left antecubital; 19:30 Follow up: IV Status: Completed infusion; IV Intake: 1000ml kj2 18:26 Drug: Acetaminophen PO 1000 mg PO once Route: PO; ph 21:47 Follow up: Response: No adverse reaction kj2 Medication: 17:57 VIS not applicable for this client. ph Intake: 19:30 IV: 1000ml; Total: 1000ml. kj2 Outcome: 20:24 Discharge ordered by . ec2 20:58 Condition: stable kj2 20:58 Discharge instructions given to patient, family, Instructed on discharge instructions, follow up and referral plans. Demonstrated understanding of instructions, follow-up care, 21:43 Discharged to [facility]. other charge nurse/RN called report to facility nurse kj2 21:48 Patient left the ED. kj2 Signatures: Dispatcher [employer] EDJoey Dolan em1 Nelly Warren, RN RN Veronica Hanks RN RN Heron, Nishi, RN RN vc1 Chu Duncan MD MD ec2 Radha Street, RN RN kj2
[2024-02-20 00:35] VITALS: BP 128/70; TEMP 98; O2SAT 96
--- NOTE | 2024-02-22 12:03 | EKG ---
Test Date: 2024-02-19 Test Time: 18:18:08 [employer] Sprayer Protective Coating: EFE MEASUREMENT RESULTS: Intervals: Rate: 107 CA: 134 QRSD: 86 QT: 338 QTc: 451 [place]: P: 19 CA: 134 QRS: 53 T: 33 INTERPRETIVE STATEMENTS: Sinus tachycardia Otherwise normal ECG Compared to ECG 11/21/2023 07:10:38 ST (T wave) deviation no longer present Electronically Signed On 02-22-24 12:01:17 VAT WASHER by Johnny Boateng
== END 2024-02-19 21:48 | disposition home or self-care (01) ==
LOC: ER 16:47
DX: B34.9 Viral infection, unspecified (principal); Z11.52 Encounter for screening for COVID-19; E11.9 Type 2 diabetes mellitus without complications; I10 Essential (primary) hypertension
CPT/HCPCS: 96361; 93005; 87040 ×2; 85025; 36415; 85610; 83605 ×2; 85730; 80053; 83880; 87804 ×2; 71045; 96374; 99285; 87811; J7030; J0696